=== PATIENT | male | born 1950 | race Caucasian/White ===

== ENCOUNTER → 2018-07-27 | Outpatient (CLI) | payer MEDICARE ==
[~2018-07-27] MED LIST: AEC81 PO; CELE200 PO; CYCL10TA7 PO; HYDR-4068 PO; LISI-613 PO; PRED5TAB44 PO; REGADENOSON 0.4 MG/5 ML PF SYG IVP SCH; [UNRECOGNIZED DRUG - CODE] PO
== END | disposition home or self-care (01) ==
LOC: SHCH 08:46
PROVIDERS: ATTEND Internal Medicine Cardiovascular Disease
DX: I25.10 Atherosclerotic heart disease of native coronary artery without angina pectoris (principal); I10 Essential (primary) hypertension
CPT/HCPCS: 78452; 93017; 96374; A9500 ×2; J2785

== ENCOUNTER → 2018-07-31 | Outpatient (CLI) | payer MEDICARE ==
[~2018-07-31] MED LIST changes: -REGADENOSON 0.4 MG/5 ML PF SYG IVP SCH
== END | disposition home or self-care (01) ==
LOC: SHCH 10:25
PROVIDERS: ATTEND Internal Medicine Cardiovascular Disease
DX: I25.10 Atherosclerotic heart disease of native coronary artery without angina pectoris (principal); I10 Essential (primary) hypertension
CPT/HCPCS: 93306

== ENCOUNTER → 2018-08-15 | Outpatient (CLI) | payer MEDICARE | END | disposition home or self-care (01) | LOC: SHCH 10:48 | PROVIDERS: ATTEND Internal Medicine Cardiovascular Disease | DX: I73.9 Peripheral vascular disease, unspecified (principal) | CPT/HCPCS: 93925 ==

== ENCOUNTER → 2018-08-27 | Outpatient (CLI) | payer MEDICARE ==
[~2018-08-27] MED LIST changes: +IOHEXOL-350 75 ML VIAL IV ONE
== END | disposition home or self-care (01) ==
LOC: RAH 07:48
PROVIDERS: ATTEND Internal Medicine Cardiovascular Disease
DX: I65.23 Occlusion and stenosis of bilateral carotid arteries (principal); I73.9 Peripheral vascular disease, unspecified; I70.90 Unspecified atherosclerosis; Z72.89 Other problems related to lifestyle
CPT/HCPCS: 75635; Q9967

== ENCOUNTER 2018-10-03 10:24 | Observation (INO) | payer MEDICARE ==
[2018-10-01 11:55] VITALS: BP 144/84
[2018-10-01 12:16] LABS: BASOPHILS % (AUTO) 0.8 % (0.0-5.0); EOSINOPHILS % (AUTO) 0.4 % (0.0-8.0); HEMATOCRIT 42.5 % (42-54); LYMPHOCYTES % (AUTO) 10.1 % (21.0-51.0); MEAN CORPUSCULAR HEMOGLOBIN 33.4 pg (27.0-33.0); MEAN CORPUSCULAR HGB CONC 34.5 g/dL (32.0-36.0); MEAN CORPUSCULAR VOLUME 96.7 fL (79-99); MONOCYTES % (AUTO) 5.2 % (3.0-13.0); NEUTROPHILS % (AUTO) 83.5 % (40.0-77.0); PLATELET COUNT (AUTO) 342 K/uL (130-400); RED BLOOD CELL COUNT(AUTO) 4.39 MIL/uL (4.50-6.20); RED CELL DISTRIBUTION WIDTH 13.1 % (11.0-15.5)
[2018-10-01 12:29] LABS: INR 0.95 (0.85-1.15); PARTIAL THROMBOPLASTIN TIME 34.1 SEC (26.3-35.5)
[2018-10-01 12:31] LABS: APPEARANCE,URINE Clear (CLEAR); BILIRUBIN,URINE Negative (NEGATIVE); COLOR,URINE Yellow (YELLOW); GLUCOSE, URINE (UA) Negative (NEGATIVE); KETONES,URINE Negative (NEGATIVE); LEUKOCYTE ESTERASE ,URINE Negative (NEGATIVE); NITRATE,URINE Negative (NEGATIVE); OCCULT BLOOD,URINE Negative (NEGATIVE); PROTEIN,URINE Negative (NEGATIVE); UROBILINOGEN,URINE 0.2 mg/dL (0.2-1.0)
[2018-10-01 12:33] LABS: CREATININE 1.1 mg/dL (0.5-1.5); POTASSIUM 5.4 mmol/L (3.5-5.1)
[2018-10-03] VITALS (10 sets, daily range): BP systolic 133–168; BP diastolic 80–112
[~2018-10-03] VITALS: Ht 172.7 cm; Wt 75.6 kg
[~2018-10-03 10:24] MED LIST changes: -IOHEXOL-350 75 ML VIAL IV ONE; +TAMS0.4C32 PO
[2018-10-03 10:54] LABS: CREATININE 0.9 mg/dL (0.5-1.5); POTASSIUM 4.6 mmol/L (3.5-5.1)
[2018-10-03] MEDS ORDERED: SODIUM CHLORIDE 0.9% 1000ML 1,000 ML IV ONE (12:13)
[2018-10-03] MEDS ORDERED: NITROGLYCERIN 5 MG/ML 10 ML VIAL IV ONE (14:01)
[2018-10-03] MEDS ORDERED: HEPARIN SODIUM 1000UNIT/ML 10ML VIAL ONE (14:01)
[2018-10-03] MEDS ORDERED: IOHEXOL 350 MG/ML 100ML INFUS..BTL IV ONE (14:01)
[2018-10-03] MEDS ORDERED: SODIUM BICARB 50MEQ 50ML VIAL ONE (14:01)
[2018-10-03] MEDS ORDERED: IOHEXOL-350 50ML VIAL IV ONE (14:01)
[2018-10-03] MEDS ORDERED: LIDOCAINE HCL 2% 20ML ONE (14:02)
[2018-10-03] MEDS ORDERED: MEPERIDINE-PF 25 MG/ML SYG ONE ×2 (14:12→14:18)
[2018-10-03] MEDS ORDERED: MIDAZOLAM HCL 1 MG/ML 2ML VIAL ONE ×2 (14:12→14:18)
[2018-10-03] MEDS ORDERED: METO-408 PO (14:47)
[2018-10-03] MEDS ORDERED: ROSU5TAB11 PO (14:47)
[2018-10-03] MEDS ORDERED: ASPIRIN 81MG TAB.CHEW ONE (15:02)
[2018-10-03] MEDS ORDERED: CLOPIDOGREL BISULFATE 300 MG TAB ONE (15:02)
[2018-10-03] MEDS ORDERED: MORPHINE SULFATE 4 MG/1ML SYG ONE (15:04)
[2018-10-03] MEDS ORDERED: HYDRALAZINE HCL 20 MG/ML VIAL ONE (15:17)
[2018-10-03] MEDS ORDERED: MORPHINE SULFATE 4 MG/1ML SYG IV PRN (15:45)
[2018-10-03] MEDS ORDERED: ALPRAZOLAM 0.5 MG TABLET PO PRN (15:45)
[2018-10-03] MEDS ORDERED: HYDRALAZINE HCL 20 MG/ML VIAL IV PRN (15:45)
[2018-10-03] MEDS ORDERED: ONDANSETRON HCL 4 MG/2 ML VIAL IVP PRN (15:45)
[2018-10-03] MEDS ORDERED: CLOPIDOGREL BISULFATE 300 MG TAB PO SCH (15:45)
[2018-10-03] MEDS: HYDROCODONE/ACETAMINOPHEN 10/325 MG TAB PO PRN ×2 (16:44→20:40)
[2018-10-03] MEDS ORDERED: SODIUM CHLORIDE 0.9% 1000ML 1,000 ML IV SCH (18:15)
[2018-10-03] MEDS: CYCLOBENZAPRINE HCL 10 MG TABLET PO PRN (20:40)
[2018-10-03] MEDS ORDERED: ATORVASTATIN CALCIUM 10 MG TABLET PO SCH (21:00)
[2018-10-03] MEDS ORDERED: ***HM***(Metoprolol Succinate 12.5 MG) PO SCH (21:00)
[2018-10-04] MEDS: HYDROCODONE/ACETAMINOPHEN 10/325 MG TAB PO PRN (02:05)
[2018-10-04 03:47] LABS: HEMATOCRIT 38.6 % (42-54); MEAN CORPUSCULAR HEMOGLOBIN 33.1 pg (27.0-33.0); MEAN CORPUSCULAR HGB CONC 34.2 g/dL (32.0-36.0); NUCLEATED RED BLOOD CELLS 0.1 % (0.0-0.19); PLATELET COUNT (AUTO) 316 K/uL (130-400); RED BLOOD CELL COUNT(AUTO) 3.98 MIL/uL (4.50-6.20); RED CELL DISTRIBUTION WIDTH 12.8 % (11.0-15.5); WHITE BLOOD COUNT (AUTO) 4.6 K/uL (4.8-10.8)
[2018-10-04 03:52] VITALS: BP 155/92
[2018-10-04 04:03] LABS: CREATININE 0.9 mg/dL (0.5-1.5)
[2018-10-04 07:38] VITALS: BP_SYST 109; BP_SYST 169; BP_DIAS 115
[2018-10-04] MEDS ORDERED: CLOPIDOGREL BISULFATE 75 MG TAB PO SCH (09:00)
[2018-10-04] MEDS ORDERED: PREDNISONE 5 MG TABLET PO SCH (09:00)
[2018-10-04] MEDS ORDERED: TAMSULOSIN HCL 0.4 MG CAP.ER.24H PO SCH (09:00)
[2018-10-04] MEDS ORDERED: ASPIRIN 81 MG EC TAB PO SCH (09:00)
[2018-10-04] MEDS ORDERED: CELECOXIB 200 MG CAP PO SCH (09:00)
[2018-10-04] MEDS ORDERED: PROPRANOLOL HCL 120 MG PO SCH (09:00)
[2018-10-04] MEDS ORDERED: LISINOPRIL 20 MG TABLET PO SCH (09:00)
[2018-10-04 10:32] VITALS: BP 131/87
[2018-10-04] MEDS: CYCLOBENZAPRINE HCL 10 MG TABLET PO PRN (11:36)
== END 2018-10-04 14:30 | disposition home or self-care (01) ==
LOC: DAH 10:24 → DAHIP 10:25 → DAH 10:25 → 2DH 16:42
PROVIDERS: ADMIT Internal Medicine; ATTEND Internal Medicine
DX: I25.10 Atherosclerotic heart disease of native coronary artery without angina pectoris (principal); I73.9 Peripheral vascular disease, unspecified; I10 Essential (primary) hypertension; N40.0 Benign prostatic hyperplasia without lower urinary tract symptoms; M51.37 Other intervertebral disc degeneration, lumbosacral region; M54.12 Radiculopathy, cervical region; Z79.899 Other long term (current) drug therapy; Z82.49 Family history of ischemic heart disease and other diseases of the circulatory system; F10.20 Alcohol dependence, uncomplicated; Z79.01 Long term (current) use of anticoagulants
CPT/HCPCS: 36415 ×3; 71045 ×2; 80048 ×3; 80061; 81003; 83880; 85025; 85027; 85347; 85610; 85730; 92928; 93005 ×4; 93458; 96374; A4606; C1760; C1769; C1876; C1887; C1893; C1894; G0378 ×28; J0360 ×2; J1644 ×2; J2175; J2250; J2270; J3490 ×3; J7030 ×2; J7512; Q9965; Q9967 ×2; 99156; 99157

== ENCOUNTER → 2019-02-07 | Outpatient (CLI) | payer MEDICARE ==
[~2019-02-07] MED LIST changes: +CLOP75TA14 PO; +METO-408 PO; +ROSU5TAB11 PO; -[UNRECOGNIZED DRUG - CODE] PO
== END | disposition home or self-care (01) ==
LOC: SHCH 10:26
PROVIDERS: ATTEND Internal Medicine Cardiovascular Disease
DX: I73.9 Peripheral vascular disease, unspecified (principal)
CPT/HCPCS: 93925

== ENCOUNTER → 2019-03-06 | Outpatient (CLI) | payer MEDICARE ==
[~2019-03-06] MED LIST changes: +IOHEXOL 350 MG/ML 100ML INFUS..BTL IV ONE; +IOHEXOL-350 50ML VIAL IV ONE
== END | disposition home or self-care (01) ==
LOC: RAH 07:46
PROVIDERS: ATTEND Internal Medicine Cardiovascular Disease
DX: I70.0 Atherosclerosis of aorta (principal); I70.201 Unspecified atherosclerosis of native arteries of extremities, right leg; I73.9 Peripheral vascular disease, unspecified; M51.36 Other intervertebral disc degeneration, lumbar region; M47.816 Spondylosis without myelopathy or radiculopathy, lumbar region; K57.90 Diverticulosis of intestine, part unspecified, without perforation or abscess without bleeding
CPT/HCPCS: 75635; Q9967 ×2

== ENCOUNTER 2019-05-14 06:02 | Day surgery (SDC) | payer MEDICARE ==
[2019-05-10 12:48] VITALS: BP 126/69
[2019-05-10 12:54] LABS: BASOPHILS % (AUTO) 0.4 % (0.0-5.0); EOSINOPHILS % (AUTO) 0.1 % (0.0-8.0); HEMATOCRIT 30.3 % (42-54); LYMPHOCYTES % (AUTO) 5.8 % (21.0-51.0); MEAN CORPUSCULAR HGB CONC 34.5 g/dL (32.0-36.0); MEAN CORPUSCULAR VOLUME 95.7 fL (79-99); MONOCYTES % (AUTO) 3.3 % (3.0-13.0); NEUTROPHILS % (AUTO) 90.4 % (40.0-77.0); PLATELET COUNT (AUTO) 383 K/uL (130-400); RED BLOOD CELL COUNT(AUTO) 3.17 MIL/uL (4.50-6.20); RED CELL DISTRIBUTION WIDTH 13.8 % (11.0-15.5); WHITE BLOOD COUNT (AUTO) 7.1 K/uL (4.8-10.8)
[2019-05-10 12:58] LABS: APPEARANCE,URINE CLEAR (CLEAR); BILIRUBIN,URINE NEGATIVE (NEGATIVE); COLOR,URINE YELLOW (YELLOW); GLUCOSE, URINE (UA) NEGATIVE (NEGATIVE); KETONES,URINE NEGATIVE (NEGATIVE); LEUKOCYTE ESTERASE ,URINE NEGATIVE (NEGATIVE); NITRATE,URINE NEGATIVE (NEGATIVE); OCCULT BLOOD,URINE NEGATIVE (NEGATIVE); PH,URINE 5.5 (5.0-8.0); PROTEIN,URINE NEGATIVE (NEGATIVE); UROBILINOGEN,URINE 0.2 mg/dL (0.2-1.0)
[2019-05-10 13:01] LABS: CREATININE 1.1 mg/dL (0.5-1.5); POTASSIUM 4.8 mmol/L (3.5-5.1)
[2019-05-10 13:05] LABS: INR 0.95 (0.85-1.15); PARTIAL THROMBOPLASTIN TIME 31.6 SEC (26.3-35.5)
--- NOTE | 2019-05-13 10:14 | NUR ---
ABNORMAL LABS H/H 10.5/30.3, NA 125 AND CHEST X RAY RESULT REPORTED TO VENICE KIM. NO FURTHER ORDERS GIVEN, MAY PROCEED WITH PLANNED PROCEDURE.
[~2019-05-14] VITALS: Ht 174 cm; Wt 74.6 kg
[2019-05-14] VITALS (11 sets, daily range): BP systolic 125–180; BP diastolic 74–96
[~2019-05-14 06:02] MED LIST changes: +CILO100T PO; -CYCL10TA7 PO; -IOHEXOL 350 MG/ML 100ML INFUS..BTL IV ONE; -IOHEXOL-350 50ML VIAL IV ONE; -METO-408 PO; -ROSU5TAB11 PO; +ROSU5TAB12 PO
[2019-05-14] MEDS ORDERED: SODIUM CHLORIDE 0.9% 1000ML 1,000 ML IV ONE (06:11)
[2019-05-14] MEDS ORDERED: SODIUM CHLORIDE 0.9% 1000ML 1,000 ML IV SCH ×2 (08:00→09:16)
[2019-05-14] MEDS ORDERED: SODIUM BICARB 50MEQ 50ML VIAL ONE (08:04)
[2019-05-14] MEDS ORDERED: IOHEXOL 350 MG/ML 100ML INFUS..BTL IV ONE (08:04)
[2019-05-14] MEDS ORDERED: LIDOCAINE HCL 2% 20ML ONE (08:04)
[2019-05-14] MEDS ORDERED: HEPARIN SODIUM 1000UNIT/ML 10ML VIAL ONE (08:04)
[2019-05-14] MEDS ORDERED: NITROGLYCERIN 5 MG/ML 10 ML VIAL IV ONE (08:04)
[2019-05-14] MEDS ORDERED: IOHEXOL-350 75 ML VIAL IV ONE (08:06)
[2019-05-14] MEDS ORDERED: MEPERIDINE-PF 25 MG/ML SYG ONE ×3 (08:18→08:53)
[2019-05-14] MEDS ORDERED: MIDAZOLAM HCL 1 MG/ML 2ML VIAL ONE ×3 (08:18→08:53)
[2019-05-14] MEDS ORDERED: FENTANYL CITRATE PF 50 MCG/1 ML 2ML VIAL IVP SCH (10:00)
[2019-05-14] MEDS ORDERED: MIDAZOLAM HCL 1 MG/ML 2ML VIAL IVP SCH (10:00)
== END 2019-05-14 14:09 | disposition home or self-care (01) ==
LOC: DAH 06:02
PROVIDERS: ATTEND Internal Medicine Cardiovascular Disease
DX: I70.213 Atherosclerosis of native arteries of extremities with intermittent claudication, bilateral legs (principal); I25.10 Atherosclerotic heart disease of native coronary artery without angina pectoris; I10 Essential (primary) hypertension; Z98.890 Other specified postprocedural states; F17.210 Nicotine dependence, cigarettes, uncomplicated; Z79.01 Long term (current) use of anticoagulants; Z79.82 Long term (current) use of aspirin; Z79.899 Other long term (current) drug therapy; Z72.89 Other problems related to lifestyle; Z82.3 Family history of stroke; Z82.49 Family history of ischemic heart disease and other diseases of the circulatory system
CPT/HCPCS: 36245; 36415; 71045; 75716; 80048; 81003; 85025; 85610; 85730; 93005; A4606; C1760; C1769; C1894; J1644; J2175 ×3; J2250 ×4; J3010; J3490 ×3; J7030; Q9967; 36247; 75710; 99156; 99157

== ENCOUNTER 2019-07-03 11:21 | Inpatient (IN) | payer MEDICARE | END 2019-07-05 13:50 | disposition home or self-care (01) | LOC: DAHIP 11:21 → 2DH 07-04 13:51 → 2CV 22:20 | PROC: 041K09M Bypass Right Femoral Artery to Peroneal Artery with Autologous Venous Tissue, Open Approach (ICD-10-PCS; principal; 2019-07-03 19:18) | PROC: 06BQ0ZZ Excision of Left Saphenous Vein, Open Approach (ICD-10-PCS; 2019-07-03 19:18) | DX: I73.9 Peripheral vascular disease, unspecified (principal) ==

== ENCOUNTER 2020-01-13 12:46 | Emergency (ER) | payer MEDICARE ==
[~2020-01-13 12:46] MED LIST changes: +PRED5TAB PO; -PRED5TAB44 PO
[2020-01-13] MEDS ORDERED: ONDANSETRON HCL 4 MG/2 ML VIAL ONE (13:16)
[2020-01-13] MEDS ORDERED: KETOROLAC TROMETHAMINE 15MG/ML ONE (13:16)
[2020-01-13] MEDS ORDERED: FENTANYL CITRATE PF 50 MCG/1 ML 2ML VIAL ONE (13:17)
== END 2020-01-13 15:58 | disposition home or self-care (01) ==
LOC: EDH 12:46
DX: M54.5 Low back pain (principal); M54.10 Radiculopathy, site unspecified; I10 Essential (primary) hypertension; Z72.0 Tobacco use
CPT/HCPCS: 74176; 96374; 96375; 99284; J1885; J2405; J3010

== ENCOUNTER → 2020-04-16 | Outpatient (CLI) | payer MEDICARE ==
[2020-04-16 11:21] LABS: BASOPHILS % (AUTO) 0.8 % (0.0-5.0); EOSINOPHILS % (AUTO) 2.2 % (0.0-8.0); HEMATOCRIT 26.8 % (42-54); LYMPHOCYTES % (AUTO) 19.9 % (21.0-51.0); MEAN CORPUSCULAR HEMOGLOBIN 20.1 pg (27.0-33.0); MEAN CORPUSCULAR HGB CONC 28.7 g/dL (32.0-36.0); MONOCYTES % (AUTO) 13.8 % (3.0-13.0); NEUTROPHILS % (AUTO) 62.9 % (40.0-77.0); PLATELET COUNT (AUTO) 450 K/uL (130-400); RED BLOOD CELL COUNT(AUTO) 3.83 MIL/uL (4.50-6.20); WHITE BLOOD COUNT (AUTO) 4.9 K/uL (4.8-10.8)
[2020-04-16 11:29] LABS: ALBUMIN 4.1 g/dL (3.5-5.0); BILIRUBIN,TOTAL 0.4 mg/dL (0.2-1.0); CREATININE 0.9 mg/dL (0.5-1.5); POTASSIUM 4.3 mmol/L (3.5-5.1); TOTAL PROTEIN, SERUM 7.7 g/dL (6.0-8.3)
[2020-04-16 11:36] LABS: HEMOGLOBIN A1C 5.4 % (4.0-6.0)
[2020-04-16 11:39] LABS: INR 0.92 (0.85-1.15); PARTIAL THROMBOPLASTIN TIME 28.8 SEC (26.3-35.5)
== END ==
LOC: LAB 05:00 → EDSTATUS 04-22 11:30
PROVIDERS: ATTEND Thoracic Surgery (Cardiothoracic Vascular Surgery)
DX: Z01.818 Encounter for other preprocedural examination (principal); I73.9 Peripheral vascular disease, unspecified; I10 Essential (primary) hypertension; I25.10 Atherosclerotic heart disease of native coronary artery without angina pectoris; Z79.82 Long term (current) use of aspirin; Z79.899 Other long term (current) drug therapy; Z98.890 Other specified postprocedural states; Z79.01 Long term (current) use of anticoagulants
CPT/HCPCS: 36415; 71046; 80053; 83036; 85025; 85610; 85730; 93005; U0003

== ENCOUNTER 2020-06-30 09:43 | Inpatient (IN) | payer MEDICARE ==
[2020-06-26 12:30] LABS: BASOPHILS % (AUTO) 0.2 % (0.0-5.0); EOSINOPHILS % (AUTO) 0.1 % (0.0-8.0); HEMATOCRIT 27.8 % (42-54); LYMPHOCYTES % (AUTO) 6.6 % (21.0-51.0); MEAN CORPUSCULAR HEMOGLOBIN 19.9 pg (27.0-33.0); MEAN CORPUSCULAR HGB CONC 28.8 g/dL (32.0-36.0); MEAN CORPUSCULAR VOLUME 69.2 fL (79-99); MONOCYTES % (AUTO) 6.2 % (3.0-13.0); NEUTROPHILS % (AUTO) 86.7 % (40.0-77.0); PLATELET COUNT (AUTO) 396 K/uL (130-400); RED BLOOD CELL COUNT(AUTO) 4.02 MIL/uL (4.50-6.20); RED CELL DISTRIBUTION WIDTH 20.9 % (11.0-15.5); WHITE BLOOD COUNT (AUTO) 8.3 K/uL (4.8-10.8)
[2020-06-26 12:56] LABS: INR 0.9 (0.85-1.15); PROTHROMBIN TIME 9.8 SEC (9.6-11.6)
[2020-06-26 13:02] LABS: HEMOGLOBIN A1C 5.5 % (4.0-6.0)
[2020-06-26 15:49] VITALS: BP 173/90
--- NOTE | 2020-06-29 16:21 | NUR ---
ABN LABS AND CXR OK PER SHERIE KNAPP( HGB/NA). PT TO HOLD CLOPIDOGREL AND ASPIRIN DAY OF SURGERY.
[~2020-06-30] VITALS: Ht 175.3 cm; Wt 68.5 kg
[2020-06-30] VITALS (21 sets, daily range): BP systolic 103–177; BP diastolic 69–99
[~2020-06-30 09:43] MED LIST changes: +CEFUROXIME SODIUM 1.5 GM VIAL IVP SCH; -TAMS0.4C32 PO
[2020-06-30] MEDS ORDERED: LACTATED RINGERS 1000ML 1,000 ML IV ONE (11:08)
[2020-06-30] MEDS ORDERED: PROPOFOL 10 MG/ML 20ML VIAL IV ONE (13:07)
[2020-06-30] MEDS ORDERED: PHENYLEPHRINE HCL 10 MG/ML 1ML VIAL IV ONE (13:07)
[2020-06-30] MEDS ORDERED: LIDOCAINE PF 2% 5ML ABBOJECT ONE (13:07)
[2020-06-30] MEDS ORDERED: SUCCINYLCHOLINE CHLORIDE 20 MG/ML 10 ML VIAL ONE ×2 (13:07→13:11)
[2020-06-30] MEDS ORDERED: FENTANYL CITRATE PF 50 MCG/1 ML 2ML VIAL ONE ×2 (13:07→16:26)
[2020-06-30] MEDS ORDERED: ROCURONIUM 10MG/1ML SYR 10 MG/ML ML ONE (13:07)
[2020-06-30] MEDS ORDERED: LIDOCAINE HCL-MPF 1% 5ML AMP IJ ONE (13:17)
[2020-06-30] MEDS ORDERED: MIDAZOLAM HCL 1 MG/ML 2ML VIAL ONE (13:17)
[2020-06-30] MEDS ORDERED: IPRATROPIUM/ALBUTEROL SULFATE 3 ML SOLUTION IH ONE (14:06)
[2020-06-30] MEDS ORDERED: IPRATROPIUM/ALBUTEROL SULFATE 3 ML SOLUTION IH SCH (14:15)
[2020-06-30 14:19] LABS: ABG BASE EXCESS 0.9 mmol/L (-2.0-3.0); ABG HCO3 24.5 mmol/L (21.0-28.0); ABG OXYGEN SATURATION 92.9 % (95.0-99.0); ABG PCO2 35 mmHg (35-48)
[2020-06-30] MEDS ORDERED: CEFAZOLIN SODIUM 1 GM VIAL ONE (14:27)
[2020-06-30] MEDS ORDERED: PAPAVERINE HCL 30 MG/ML 2ML VIAL ONE (14:28)
[2020-06-30] MEDS ORDERED: METHYLPREDNISOLONE SOD SUCC 125MG/2ML VIAL ONE (15:43)
[2020-06-30] MEDS ORDERED: GLYCOPYRROLATE 1 MG/5 ML SYRINGE ONE (16:13)
[2020-06-30] MEDS ORDERED: NEOSTIGMINE 5MG/5ML SYR IV ONE (16:13)
[2020-06-30] MEDS ORDERED: ACETAMINOPHEN 325 MG TAB PO PRN (16:15)
[2020-06-30] MEDS ORDERED: TRAMADOL HCL 50 MG TABLET PO PRN ×2 (16:15)
[2020-06-30] MEDS ORDERED: MAGNESIUM HYDROXIDE 30 ML/UDCUP PO PRN (16:15)
[2020-06-30] MEDS ORDERED: HYDRALAZINE HCL 20 MG/ML VIAL IV PRN (16:15)
[2020-06-30] MEDS ORDERED: ESMOLOL HCL 10 MG/ML 10 ML VIAL ONE (16:20)
[2020-06-30] MEDS ORDERED: KETOROLAC TROMETHAMINE 30MG/ML IV PRN (18:00)
[2020-06-30] MEDS: DOCUSATE SODIUM 100 MG CAP PO SCH (21:32)
[2020-06-30] MEDS: CEFAZOLIN SODIUM 1 GM VIAL IVP SCH (21:32)
[2020-06-30] MEDS: CILOSTAZOL 100 MG TAB PO SCH (21:32)
[2020-07-01 04:00] VITALS: BP 136/79
[2020-07-01 04:43] LABS: HEMATOCRIT 26.4 % (42-54); MEAN CORPUSCULAR HEMOGLOBIN 20.9 pg (27.0-33.0); MEAN CORPUSCULAR HGB CONC 29.5 g/dL (32.0-36.0); MEAN CORPUSCULAR VOLUME 70.8 fL (79-99); RED BLOOD CELL COUNT(AUTO) 3.73 MIL/uL (4.50-6.20); RED CELL DISTRIBUTION WIDTH 21.4 % (11.0-15.5); WHITE BLOOD COUNT (AUTO) 7.2 K/uL (4.8-10.8)
[2020-07-01 04:53] LABS: CREATININE 0.8 mg/dL (0.5-1.5); POTASSIUM 3.9 mmol/L (3.5-5.1)
[2020-07-01] MEDS: CEFAZOLIN SODIUM 1 GM VIAL IVP SCH (05:39)
[2020-07-01 07:00] VITALS: BP 140/82
--- NOTE | 2020-07-01 07:30 | NUR ---
Dr Escalera updated with patient's status, including morning lab results, new orders given to transfuse 1 unit of PRBC's
[2020-07-01 08:00] VITALS: BP 136/81
[2020-07-01] MEDS: DOCUSATE SODIUM 100 MG CAP PO SCH (08:12)
--- NOTE | 2020-07-01 08:15 | NUR ---
Report given to Robe Lofton RN, transferred to room 420 via bed.
[2020-07-01] MEDS: CILOSTAZOL 100 MG TAB PO SCH (08:17)
--- NOTE | 2020-07-01 08:20 | NUR ---
ARRIVAL TO FLOOR PT IS AAOX3 DENIES CP DENIES SOB DENIES NV. NO COMPLAINTS,. LEFT LEG ELEVATED ON PILLOWS, LEFT LEG DRESSING CLEAN DRY AND INTACT. TELE PACK ON PATIENT. CALL LIGHT WITHIN REACH.
[2020-07-01] MEDS ORDERED: LISINOPRIL 20 MG TABLET PO SCH (09:00)
[2020-07-01] MEDS ORDERED: ASPIRIN 81 MG EC TAB PO SCH (09:00)
[2020-07-01] MEDS ORDERED: CELECOXIB 200 MG CAP PO SCH (09:00)
[2020-07-01] MEDS ORDERED: CLOPIDOGREL BISULFATE 75 MG TAB PO SCH (09:00)
[2020-07-01] MEDS ORDERED: ZOSYN 3.375GM+NS 50ML 50 ML IV SCH (09:00)
[2020-07-01] MEDS ORDERED: Rosuvastatin Calcium 5 MG PO SCH (09:00)
[2020-07-01 11:24] VITALS: BP 141/52
--- NOTE | 2020-07-01 14:15 | NUR ---
DC TO HOME ALL QUESTIONS ANSWERED, PIV REMOVED CATH TIP INTACT TELE PACK REMOVED. AGREES TO FOLLOW UP WITH DR TRUONG OUTPT. BELONGINGS RETURNED BY SECURITY, DOWN VIA WC TO VEHICLE WITH NURSE AIDE.
[2020-07-02] MEDS ORDERED: PREDNISONE 5 MG TABLET PO SCH (09:00)
--- NOTE | 2020-07-02 09:23 | NUR ---
CM NOTE- MED RECORD REVIEWED, NO TRIGGERS TO CM, NO CONCERNS VOICED, DETAILED CM ASSESSMENT DEFERED AT THIS TIME Addendum: 07/02/20 at 09 by JENS LINDSYA RN CM Amended: Links added.
== END 2020-07-01 14:45 | disposition home or self-care (01) | DRG 254 ==
LOC: DAHIP 09:43 → PAH.CVR 22:53 → 4CH 07-01 09:21
PROVIDERS: ADMIT Thoracic Surgery (Cardiothoracic Vascular Surgery); ATTEND Thoracic Surgery (Cardiothoracic Vascular Surgery)
PROC: 30233N1 Transfusion of Nonautologous Red Blood Cells into Peripheral Vein, Percutaneous Approach (ICD-10-PCS; 2020-06-30)
PROC: 041L0KL Bypass Left Femoral Artery to Popliteal Artery with Nonautologous Tissue Substitute, Open Approach (ICD-10-PCS; principal; 2020-06-30 14:35)
DX: I73.9 Peripheral vascular disease, unspecified (principal); E78.1 Pure hyperglyceridemia; Z20.828 Contact with and (suspected) exposure to other viral communicable diseases; I10 Essential (primary) hypertension; I25.10 Atherosclerotic heart disease of native coronary artery without angina pectoris; N40.0 Benign prostatic hyperplasia without lower urinary tract symptoms; J44.9 Chronic obstructive pulmonary disease, unspecified; M51.37 Other intervertebral disc degeneration, lumbosacral region; Z95.5 Presence of coronary angioplasty implant and graft
CPT/HCPCS: 36415; 36600; 71046; 80048; 82435; 82803; 82947; 83036; 83605; 84132; 84295; 85018; 85025; 85027; 85610; 85730; 86850; 86900; 86901; 86923; 93005; 94640; 97039; G0378; J0330; J0360; J0690; J0697; J1644; J2001; J2250; J2370; J2440; J2543; J2704; J2710; J2930; J3010; J3490; J7030; J7120; P9016; U0003

== ENCOUNTER 2020-07-23 14:01 | Inpatient (IN) | payer MEDICARE ==
[~2020-07-23] VITALS: Ht 175.3 cm; Wt 70.3 kg
[~2020-07-23 14:01] MED LIST changes: -CEFUROXIME SODIUM 1.5 GM VIAL IVP SCH
[2020-07-23] MEDS ORDERED: ONDANSETRON HCL 4 MG/2 ML VIAL ONE (14:35)
[2020-07-23] MEDS ORDERED: MORPHINE SULFATE 4 MG/1ML SYG ONE (14:36)
[2020-07-23 14:48] LABS: BASOPHILS % (AUTO) 0.5 % (0.0-5.0); EOSINOPHILS % (AUTO) 0.1 % (0.0-8.0); HEMATOCRIT 31.6 % (42-54); LYMPHOCYTES % (AUTO) 5.1 % (21.0-51.0); MEAN CORPUSCULAR HEMOGLOBIN 21.4 pg (27.0-33.0); MEAN CORPUSCULAR HGB CONC 30.4 g/dL (32.0-36.0); MEAN CORPUSCULAR VOLUME 70.5 fL (79-99); MONOCYTES % (AUTO) 4.8 % (3.0-13.0); NEUTROPHILS % (AUTO) 89.1 % (40.0-77.0); PLATELET COUNT (AUTO) 416 K/uL (130-400); RED BLOOD CELL COUNT(AUTO) 4.48 MIL/uL (4.50-6.20); RED CELL DISTRIBUTION WIDTH 22.3 % (11.0-15.5); WHITE BLOOD COUNT (AUTO) 7.5 K/uL (4.8-10.8)
[2020-07-23 15:01] LABS: INR 0.91 (0.85-1.15); PARTIAL THROMBOPLASTIN TIME 29.6 SEC (26.3-35.5); PROTHROMBIN TIME 9.9 SEC (9.6-11.6)
[2020-07-23 15:03] LABS: CREATININE 1.1 mg/dL (0.5-1.5); POTASSIUM 3.2 mmol/L (3.5-5.1)
[2020-07-23 15:14] LABS: ALBUMIN 3.4 g/dL (3.5-5.0); BILIRUBIN,DIRECT 0.1 mg/dL (0.0-0.3); BILIRUBIN,TOTAL 0.4 mg/dL (0.2-1.0); TOTAL PROTEIN, SERUM 7.1 g/dL (6.0-8.3)
[2020-07-23] MEDS ORDERED: CEFTRIAXONE SODIUM 2 GM VIAL ONE (15:27)
[2020-07-23] MEDS ORDERED: SODIUM CHLORIDE 0.9% 100 ML IV ONE (15:28)
[2020-07-23] MEDS ORDERED: ONDANSETRON HCL 4 MG/2 ML VIAL IV PRN (18:30)
[2020-07-23] MEDS: SODIUM CHLORIDE 0.9% 1000ML 1,000 ML IV SCH (18:30)
[2020-07-23] MEDS ORDERED: ZOLPIDEM TARTRATE 5 MG TAB PO PRN (18:30)
[2020-07-23] MEDS ORDERED: ACETAMINOPHEN 325 MG TAB PO PRN (18:30)
[2020-07-23] MEDS ORDERED: LACTULOSE 20 GM/30 ML UDCUP PO PRN (18:30)
[2020-07-23] MEDS ORDERED: FAMOTIDINE/PF 20 MG/2 ML VIAL IV ONE (19:51)
[2020-07-23] MEDS: FAMOTIDINE/PF 20 MG/2 ML VIAL IV SCH (21:00)
[2020-07-23] MEDS: CEFTRIAXONE SODIUM 1 GM IV SCH (21:00)
[2020-07-23] MEDS: CILOSTAZOL 100 MG TAB PO SCH (21:00)
[2020-07-24] VITALS: BP 138/70
[2020-07-24] MEDS ORDERED: POTASSIUM CHLORIDE 20MEQ/100ML 100 ML IV PRN ×2 (00:15→00:45)
[2020-07-24] MEDS ORDERED: POTASSIUM CHLORIDE 10% ELIXIR 20 MEQ/15 ML UDCUP PO PRN (00:15)
[2020-07-24] MEDS ORDERED: LIDOCAINE HCL-MPF 1% 2ML VIAL IV PRN (00:15)
--- NOTE | 2020-07-24 00:15 | NUR ---
ADMIT PT ADMITTED TO ROOM 312, AAOX3. DENIES ANY PAINS AT THIS TIME. ADMISSION CARE DONE. IVF OS NS FROM ER REGULATED AT 100CC/HR ORDERED. ADMISSION DATA BASE COMPLETED. WOUND DRESSING DONE TO LEFT GROIN AREA. CLEANSED WITH SALINE, PAT DRY THEN COVERED WITH GAUZE AND SECURED WITH TAPE. ORIENTED TO ROOM AND UNIT. CALL LIGHT WITHIN REACH. WILL MONITOR PT. Addendum: 07/24/20 at 0147 by LEWIS MOSER RN RN Amended: Links added.
[2020-07-24] MEDS ORDERED: NAPR220C15 PO (00:51)
[2020-07-24] MEDS: MAGNESIUM 2GM PREMIX 50ML 50 ML IV SCH ×2 (00:57→02:52)
--- NOTE | 2020-07-24 01:00 | NUR ---
MEDS STARTED PT ON POTASSIUM PROTOCOL PO AND MAGNESIUM IV HUNG. ENCOURAGED PT TO REST AND SLEEP. CALL LIGHT WITHIN REACH. WILL MONITOR PT.
[2020-07-24] MEDS: POTASSIUM CHLORIDE 20 MEQ ERTAB PO PRN ×2 (02:52→05:00)
[2020-07-24] MEDS: SODIUM CHLORIDE 0.9% 1000ML 1,000 ML IV SCH ×3 (03:35→17:52)
[2020-07-24 04:00] VITALS: BP 133/73
--- NOTE | 2020-07-24 05:00 | NUR ---
MEDS AWAKENED PT FOR LAST DOSE OF POTASSIUM PO PER [facility] PROTOCOL. MAGNESIUM COVERAGE IV DONE. NEW IV BAG HUNG. KEPT COMFORTABLE IN BED. WILL FOLLOW UP ON REPEAT ELECTROLYTES RESULTS THIS AM.
[2020-07-24 05:47] LABS: BASOPHILS % (AUTO) 0.8 % (0.0-5.0); EOSINOPHILS % (AUTO) 3.1 % (0.0-8.0); HEMATOCRIT 25.6 % (42-54); MEAN CORPUSCULAR HEMOGLOBIN 21.2 pg (27.0-33.0); MEAN CORPUSCULAR HGB CONC 30.1 g/dL (32.0-36.0); MEAN CORPUSCULAR VOLUME 70.3 fL (79-99); NEUTROPHILS % (AUTO) 66.8 % (40.0-77.0); PLATELET COUNT (AUTO) 327 K/uL (130-400); RED BLOOD CELL COUNT(AUTO) 3.64 MIL/uL (4.50-6.20); RED CELL DISTRIBUTION WIDTH 21.9 % (11.0-15.5); WHITE BLOOD COUNT (AUTO) 3.9 K/uL (4.8-10.8)
[2020-07-24 06:19] LABS: ALBUMIN 2.6 g/dL (3.5-5.0); BILIRUBIN,TOTAL 0.3 mg/dL (0.2-1.0); MAGNESIUM 2.3 mg/dL (1.80-2.40); POTASSIUM 4.2 mmol/L (3.5-5.1); TOTAL PROTEIN, SERUM 5.8 g/dL (6.0-8.3)
[2020-07-24 08:00] VITALS: BP 137/90
[2020-07-24] MEDS: CILOSTAZOL 100 MG TAB PO SCH ×2 (09:00→21:08)
[2020-07-24] MEDS ORDERED: FLU VACC QS2020-21(6MOS UP)/PF 60 MCG/0.5 ML ML IM ONE (09:00)
[2020-07-24] MEDS ORDERED: PNEUMOCOCCAL VACCINE POLYVALENT 0.5 ML/VIAL [PPV] IM SCH (09:00)
[2020-07-24] MEDS: CEFTRIAXONE SODIUM 1 GM IV SCH ×2 (09:46→20:56)
[2020-07-24] MEDS: FAMOTIDINE/PF 20 MG/2 ML VIAL IV SCH ×2 (09:46→20:56)
[2020-07-24] MEDS: LISINOPRIL 20 MG TABLET PO SCH (09:46)
[2020-07-24 12:00] VITALS: BP 137/91
[2020-07-24] MEDS ORDERED: VANCOMYCIN PROTOCOL PER PHARMACY IV SCH (12:30)
[2020-07-24] MEDS ORDERED: COMPOUND IV REFRIGERATED 1 EACH IVSOLN MISC PRN (13:45)
[2020-07-24] MEDS ORDERED: VANCOMYCIN 1.5 GM in SODIUM CHLORIDE 0.9% 250 ML IV ONE (14:00)
--- NOTE | 2020-07-24 14:02 | NUR ---
DCP CM met with pt discussed dc plans. Pt is independent prior to admission, lives at home with spouse. Pt has a walker, denies any other equipments/services. Feels safe to go back home, spouse able to assist with transportation and needs as necessary. DC plan to home once stable. CM to continue to follow up. Addendum: 07/24/20 at 1404 by OLIVIA GARCIA LVN CM Amended: Links added.
--- NOTE | 2020-07-24 15:00 | NUR ---
RE: U/S GUIDED DRAINAGE CATHETER PLACEMENT TO LEFT GROIN SEROMA ULTRASOUND PERFORMED TO THE LEFT GROIN. DR. ALVAREZ NOTED PATIENT HAS COMPLEX ACCUMULATION OF FLUID TO THE LEFT GROIN WITH MULTIPLE SEPTATIONS NOTED. UNABLE TO PERFORM A DRAINAGE CATHETER TO THE SITE DUE TO THE COMPLEX FLUID ACCUMULATION AND THE MULTIPLE SEPTATIONS. EXPLAINED TO PATIENT. CALLED AND INFORMED PRIMARY NURSE, SHERIE SHAFFER OF INABILITY TO PLACE DRAINAGE CATHETER BUT DR. ALVAREZ WILL ATTEMPT TO PERFORM US GUIDED DRAINAGE OF LEFT GROIN SEROMA.
--- NOTE | 2020-07-24 15:35 | NUR ---
U/S GUIDED DRAINAGE OF LEFT GROIN SEROMA PROCEDURE PERFORMED BY DR. ALVAREZ. PUNCTURE SITE LEFT GROIN AND PATIENT TOLERATED PROCEDURE WELL. TOTAL REMOVED 25 MILLILITERS OF YELLOW CLEAR FLUID FROM MULTIPLE SITES OF THE LEFT GROIN. END OF PROCEDURE AT 1555.CATHETER REMOVED AND DRESSING APPLIED. NO BLEEDING NOTED. REPORT GIVEN TO SHERIE GARCIA AND PATIENT TRANSPORTED TO [facility] VIA W/C. PT STABLE, AAO X 3 WITH NO C/O PAIN.
[2020-07-24] MEDS ORDERED: VANCOMYCIN 1.5 GM in SODIUM CHLORIDE 0.9% 250 ML IV SCH (18:00)
[2020-07-24 18:05] LABS: APPEARANCE BODY FLUID CLOUDY (CLEAR); COLOR,BODY FLUID DARK YELLOW (LT YELLOW); SPECIMENTYPE,BODY FLUID ASPIRATE; TOTAL VOLUME,BODY FLUID 23 mL
[2020-07-24 18:06] LABS: BODY FLUID RBC 4372 /cu. mm.; BODY FLUID WBC 1980 /cu. mm.
[2020-07-24 18:40] LABS: BF LYMPHOCYTE 93 %; BF MONOCYTE 3 %
[2020-07-24 19:20] VITALS: BP 129/74
--- NOTE | 2020-07-24 21:08 | NUR ---
PAGED MAURY PT REPORTS HIS UPPER LIP IS "TINGLING". INFLAMMATION NOTED ON UPPER LIP. NO C/O OF DIFFICULTY BREATHING. PAGED MAURY, NO ANTIHISTAMINE AVAILABLE TO GIVE PRN. SONYA VERNON RETURNED PAGE. ORDERS WERE GIVEN, PLACED IN [facility]. WILL CARRY OUT ORDERS AND CONT TO CLOSELY MONITOR PT.
[2020-07-24] MEDS ORDERED: METHYLPREDNISOLONE SOD SUCC 125MG/2ML VIAL ONE (21:14)
[2020-07-24] MEDS ORDERED: DIPHENHYDRAMINE HCL 25 MG CAPSULE ONE (21:15)
--- NOTE | 2020-07-24 21:30 | NUR ---
NOTE PT REPORTS IS LIPS FEEL BETTER. OBSERVED A DECREASE IN SWELLING OF THE LIPS. PT REPORTS THAT HE FEELS THE BANDAGE TO LEFT GROIN AREA "LEAKING". GAUZE PADS WERE SATURATED. CHANGED GAUZE, APPLIED GAUZE PADS, ABD DRESSING AND SECURED WITH MEDIPORE TAPE. ENCOURAGED PT USE CALL LIGHT BEFORE GETTING OUT OF BED OR FOR ANY ASSISTANCE- PT VERBALIZED AGREEMENT. CALL LIGHT WITHIN REACH ON BEDSIDE TABLE, BED ALARM ON, DOOR LEFT OPEN.
[2020-07-24] MEDS ORDERED: METHYLPREDNISOLONE SOD SUCC 125MG/2ML VIAL IVP ONE (22:20)
[2020-07-24] MEDS ORDERED: DIPHENHYDRAMINE HCL 25 MG CAPSULE PO ONE (22:20)
[2020-07-24] MEDS: ACETAMINOPHEN 325 MG TAB PO PRN (23:26)
--- NOTE | 2020-07-24 23:30 | NUR ---
NOTE PT CALLED TO INFORM ME THAT THERE WAS AN INCREASE IN DRAINAGE FROM GROIN AREA AGAIN. ABD PAD AND GAUZE PADS WERE SATURATED IN SEROUS FLUID. NO ODOR OBSERVED. CHANGED DRESSING: APPLIED GAZE PADS, ABD PAD, SECURED WITH MEDIPORE TAPE. CALL LIGHT WITHIN REACH ON BEDSIDE TABLE. BED ALARM ON, DOOR LEFT OPEN.
[2020-07-25] VITALS (8 sets, daily range): BP systolic 126–177; BP diastolic 78–97
[2020-07-25] MEDS: VANCOMYCIN 750MG + NS 250 ML IV SCH ×6 (06:00→22:03)
[2020-07-25] MEDS: SODIUM CHLORIDE 0.9% 1000ML 1,000 ML IV SCH ×2 (06:01→10:30)
[2020-07-25 06:33] LABS: HEMATOCRIT 26.1 % (42-54); LYMPHOCYTES % (AUTO) 7.1 % (21.0-51.0); MEAN CORPUSCULAR HEMOGLOBIN 21.1 pg (27.0-33.0); MEAN CORPUSCULAR HGB CONC 29.5 g/dL (32.0-36.0); MEAN CORPUSCULAR VOLUME 71.5 fL (79-99); MONOCYTES % (AUTO) 1.2 % (3.0-13.0); NEUTROPHILS % (AUTO) 90.9 % (40.0-77.0); PLATELET COUNT (AUTO) 315 K/uL (130-400); RED BLOOD CELL COUNT(AUTO) 3.65 MIL/uL (4.50-6.20); RED CELL DISTRIBUTION WIDTH 22.2 % (11.0-15.5); WHITE BLOOD COUNT (AUTO) 2.5 K/uL (4.8-10.8)
[2020-07-25 06:45] LABS: CREATININE 0.9 mg/dL (0.5-1.5); POTASSIUM 4.1 mmol/L (3.5-5.1)
[2020-07-25] MEDS ORDERED: HYDRALAZINE HCL 20 MG/ML VIAL IV PRN (08:15)
[2020-07-25 08:23] LABS: LYMPHOCYTES % (MANUAL) 4 % (22-44); MAN.DIFF COMMENT-IMPRESSION MANUAL DIFFERENTIAL; PLATELET MORPHOLOGY COMMENT ADEQUATE; SEGMENTED NEUTROPHILS % 96 % (40-70)
[2020-07-25] MEDS: ATORVASTATIN CALCIUM 10 MG TABLET PO SCH ×2 (09:00→22:01)
[2020-07-25] MEDS: CILOSTAZOL 100 MG TAB PO SCH ×2 (09:00→21:00)
[2020-07-25] MEDS: CEFTRIAXONE SODIUM 1 GM IV SCH ×2 (09:34→22:01)
[2020-07-25] MEDS: ASPIRIN 81 MG EC TAB PO SCH (09:34)
[2020-07-25] MEDS: FAMOTIDINE/PF 20 MG/2 ML VIAL IV SCH ×2 (09:34→22:01)
[2020-07-25] MEDS: LISINOPRIL 20 MG TABLET PO SCH (09:34)
[2020-07-25] MEDS: MORPHINE SULFATE 2 MG/ML 1ML SYG IV PRN (19:44)
[2020-07-26 04:07] VITALS: BP 160/98
[2020-07-26 07:04] LABS: BASOPHILS % (AUTO) 0.2 % (0.0-5.0); LYMPHOCYTES % (AUTO) 14.3 % (21.0-51.0); MEAN CORPUSCULAR HEMOGLOBIN 21.4 pg (27.0-33.0); MEAN CORPUSCULAR VOLUME 71.2 fL (79-99); MONOCYTES % (AUTO) 9.4 % (3.0-13.0); NEUTROPHILS % (AUTO) 75.7 % (40.0-77.0); PLATELET COUNT (AUTO) 334 K/uL (130-400); RED BLOOD CELL COUNT(AUTO) 3.51 MIL/uL (4.50-6.20); RED CELL DISTRIBUTION WIDTH 22.4 % (11.0-15.5); WHITE BLOOD COUNT (AUTO) 4.9 K/uL (4.8-10.8)
[2020-07-26] MEDS: VANCOMYCIN 750MG + NS 250 ML IV SCH ×6 (07:26→22:06)
[2020-07-26 07:52] LABS: CREATININE 0.9 mg/dL (0.5-1.5); POTASSIUM 3.8 mmol/L (3.5-5.1)
[2020-07-26 08:00] VITALS: BP 180/95
[2020-07-26] MEDS: ASPIRIN 81 MG EC TAB PO SCH (09:32)
[2020-07-26] MEDS: FAMOTIDINE 20MG TAB 20 MG TAB PO SCH ×2 (09:32→20:16)
[2020-07-26] MEDS: LISINOPRIL 20 MG TABLET PO SCH (09:32)
[2020-07-26] MEDS: CILOSTAZOL 100 MG TAB PO SCH ×2 (09:32→20:16)
[2020-07-26] MEDS: CEFTRIAXONE SODIUM 1 GM IV SCH ×2 (09:33→20:15)
[2020-07-26] MEDS: MORPHINE SULFATE 2 MG/ML 1ML SYG IV PRN ×2 (09:42→20:17)
[2020-07-26 12:00] VITALS: BP 122/41
[2020-07-26] MEDS: ACETAMINOPHEN 325 MG TAB PO PRN (14:41)
[2020-07-26 16:00] VITALS: BP 150/85
[2020-07-26] MEDS: ATORVASTATIN CALCIUM 10 MG TABLET PO SCH (20:16)
[2020-07-26 20:43] VITALS: BP 129/84
[2020-07-26 23:59] VITALS: BP 154/86
[2020-07-27 04:00] VITALS: BP 151/91
[2020-07-27 05:59] LABS: BASOPHILS % (AUTO) 0.3 % (0.0-5.0); EOSINOPHILS % (AUTO) 0.3 % (0.0-8.0); HEMATOCRIT 25.2 % (42-54); LYMPHOCYTES % (AUTO) 15.4 % (21.0-51.0); MEAN CORPUSCULAR HEMOGLOBIN 21.4 pg (27.0-33.0); MEAN CORPUSCULAR HGB CONC 29.8 g/dL (32.0-36.0); MEAN CORPUSCULAR VOLUME 71.8 fL (79-99); NEUTROPHILS % (AUTO) 70.7 % (40.0-77.0); PLATELET COUNT (AUTO) 314 K/uL (130-400); RED BLOOD CELL COUNT(AUTO) 3.51 MIL/uL (4.50-6.20); RED CELL DISTRIBUTION WIDTH 22.4 % (11.0-15.5); WHITE BLOOD COUNT (AUTO) 3.8 K/uL (4.8-10.8)
[2020-07-27] MEDS ORDERED: FLU VACC QS2020-21(6MOS UP)/PF 60 MCG/0.5 ML ML IM ONE (06:03)
[2020-07-27] MEDS: VANCOMYCIN 750MG + NS 250 ML IV SCH ×6 (06:05→22:39)
[2020-07-27 06:15] LABS: POTASSIUM 3.7 mmol/L (3.5-5.1)
[2020-07-27 07:49] VITALS: BP 162/96
[2020-07-27] MEDS: ASPIRIN 81 MG EC TAB PO SCH (10:29)
[2020-07-27] MEDS: LISINOPRIL 20 MG TABLET PO SCH (10:29)
[2020-07-27] MEDS: CILOSTAZOL 100 MG TAB PO SCH ×2 (10:29→20:46)
[2020-07-27] MEDS: FAMOTIDINE 20MG TAB 20 MG TAB PO SCH ×2 (10:29→20:46)
--- NOTE | 2020-07-27 11:00 | NUR ---
CM Note: [facility] pending approval CM met with pt, spouse uncomfortable for pt to go back home as woundvac still has large amount drain. Requesting possible SNF placement, RADHA signed for [facility]. Faxed order, clinicals, [facility], Covid transfer form, confirmation received. Spoke to Priscilla chavez dc once approved. Plan B home w/HH and [facility]. Primary nurse Leslee REHMAN aware left script for [facility] and HH for Dr Escalera to sign, informed nurse will need wound measurements entered on form, per nurse will look at [facility] documentations and will add measurements. CM to continue to follow up.
[2020-07-27 11:03] VITALS: BP 165/94
--- NOTE | 2020-07-27 12:08 | NUR ---
CM Note: POC CM spoke to Dr Escalera regarding SNF vs HH. As per Dr Escalera preferred pt to go home w/HH and [facility]. MD made aware pt and spouse requested short term placement as pt still has a large amount of drainage. Per Dr Escalera he does not think it would be better for pt to go to SNF, he feels pt will develop infection. Informed MD will inform pt and spouse. Informed Dr Escalera will need HH and [facility] script signed, flagged in chart, pending MD to sign. Per MD will sign scripts. Primary nurse Leslee REHMAN aware. CM to continue to follow up.
--- NOTE | 2020-07-27 13:30 | NUR ---
MEDICATED administered morphine 2 mg iv prior to wound vac removal and dressing change by wound therapy Dr Kennedy and staff
[2020-07-27] MEDS: MORPHINE SULFATE 2 MG/ML 1ML SYG IV PRN ×2 (14:54→21:00)
[2020-07-27] MEDS: CEFTRIAXONE SODIUM 1 GM IV SCH ×2 (15:07→20:46)
[2020-07-27] MEDS ORDERED: CEPH-578 PO (15:33)
[2020-07-27] MEDS ORDERED: DOXY100T2 PO (15:33)
[2020-07-27 16:22] VITALS: BP 142/87
[2020-07-27 20:09] VITALS: BP 122/72
[2020-07-27] MEDS: ATORVASTATIN CALCIUM 10 MG TABLET PO SCH (20:46)
[2020-07-28] VITALS (9 sets, daily range): BP systolic 90–168; BP diastolic 65–98
[2020-07-28 04:30] LABS: ALBUMIN 2.9 g/dL (3.5-5.0); BILIRUBIN,TOTAL 0.3 mg/dL (0.2-1.0); CREATININE 0.8 mg/dL (0.5-1.5); POTASSIUM 3.9 mmol/L (3.5-5.1); TOTAL PROTEIN, SERUM 6.2 g/dL (6.0-8.3)
[2020-07-28 04:32] LABS: HEMATOCRIT 26.6 % (42-54); LYMPHOCYTES % (AUTO) 17.5 % (21.0-51.0); MEAN CORPUSCULAR HEMOGLOBIN 21.4 pg (27.0-33.0); MEAN CORPUSCULAR HGB CONC 30.1 g/dL (32.0-36.0); MEAN CORPUSCULAR VOLUME 71.1 fL (79-99); MONOCYTES % (AUTO) 11.6 % (3.0-13.0); NEUTROPHILS % (AUTO) 66.7 % (40.0-77.0); PLATELET COUNT (AUTO) 356 K/uL (130-400); RED BLOOD CELL COUNT(AUTO) 3.74 MIL/uL (4.50-6.20); RED CELL DISTRIBUTION WIDTH 22.5 % (11.0-15.5); WHITE BLOOD COUNT (AUTO) 4.1 K/uL (4.8-10.8)
--- NOTE | 2020-07-28 10:00 | NUR ---
CM Note: [facility] pending approval and delivery, [facility] pending approval CM met with pt, had changed their mind regarding SNF placement, preferred to go home instead, RADHA signed for [facility]. Faxed clinicals to [facility], confirmation received. Pending script to be signed by Dr Escalera. Will send once MD signed script. Pending approval and delivery for [facility]. Faxed order and clinicals to [facility], confirmation received. Spoke to Desiree w/[facility] will await clinicals and check benefits. Aware pending [facility] approval and delivery. Pt pending approval for HH at this time. Primary nurse Lashawn RN aware of the above. Dr Escalera made aware pending signatures for [facility] and [facility], flagged in chart. CM to continue to follow up.
--- NOTE | 2020-07-28 10:00 | NUR ---
CM Note: Cancelled [facility] placement, pending approval for [facility] and [facility] CM met with pt informed of Dr Escalera recommendations, pt agreeable, [facility] signed for [facility] and [facility]. Faxed order and clinicals to [facility], confirmation received. Spoke to Desiree, made aware pending [facility] set up, pending MD to sign script for HH and [facility]. Pt pending approval. Primary nurse Lashawn RN aware. CM to continue to follow up.
[2020-07-28] MEDS: LISINOPRIL 20 MG TABLET PO SCH (10:18)
[2020-07-28] MEDS: CEFTRIAXONE SODIUM 1 GM IV SCH ×2 (10:18→20:50)
[2020-07-28] MEDS: FAMOTIDINE 20MG TAB 20 MG TAB PO SCH ×2 (10:18→20:50)
[2020-07-28] MEDS: ASPIRIN 81 MG EC TAB PO SCH (10:18)
[2020-07-28] MEDS: CILOSTAZOL 100 MG TAB PO SCH ×2 (10:18→20:50)
--- NOTE | 2020-07-28 12:03 | NUR ---
CM Note: [facility] script pending MD to sign CM informed Fidelina bar/Dr Escalera pending script to be signed by MD for [facility] via secured text. Primary nurse Lashawn REHMAN aware, also informed primary nurse Dr William Ashford w/[facility] ok to sign script, nurse to inform CM once either MD sign forms. CM to continue to follow up.
[2020-07-28] MEDS: MORPHINE SULFATE 2 MG/ML 1ML SYG IV PRN ×2 (15:31→20:50)
[2020-07-28] MEDS: ATORVASTATIN CALCIUM 10 MG TABLET PO SCH (20:50)
[2020-07-28] MEDS: VANCOMYCIN 1GM+NS 250ML 250 ML IV SCH (20:50)
[2020-07-29 03:45] VITALS: BP 97/74
[2020-07-29 06:16] LABS: BASOPHILS % (AUTO) 0.8 % (0.0-5.0); EOSINOPHILS % (AUTO) 5.4 % (0.0-8.0); HEMATOCRIT 24.4 % (42-54); LYMPHOCYTES % (AUTO) 15.1 % (21.0-51.0); MEAN CORPUSCULAR HEMOGLOBIN 21.4 pg (27.0-33.0); MEAN CORPUSCULAR HGB CONC 29.9 g/dL (32.0-36.0); MEAN CORPUSCULAR VOLUME 71.6 fL (79-99); MONOCYTES % (AUTO) 16.4 % (3.0-13.0); PLATELET COUNT (AUTO) 324 K/uL (130-400); RED BLOOD CELL COUNT(AUTO) 3.41 MIL/uL (4.50-6.20); RED CELL DISTRIBUTION WIDTH 22.4 % (11.0-15.5); WHITE BLOOD COUNT (AUTO) 3.7 K/uL (4.8-10.8)
[2020-07-29 06:26] LABS: CREATININE 0.8 mg/dL (0.5-1.5); POTASSIUM 3.6 mmol/L (3.5-5.1)
[2020-07-29 07:30] VITALS: BP 128/68
[2020-07-29] MEDS: CEFTRIAXONE SODIUM 1 GM IV SCH (09:53)
[2020-07-29] MEDS: VANCOMYCIN 1GM+NS 250ML 250 ML IV SCH (09:53)
[2020-07-29] MEDS: FAMOTIDINE 20MG TAB 20 MG TAB PO SCH (09:53)
[2020-07-29] MEDS: ASPIRIN 81 MG EC TAB PO SCH (09:54)
[2020-07-29] MEDS: LISINOPRIL 20 MG TABLET PO SCH (09:54)
[2020-07-29] MEDS: CILOSTAZOL 100 MG TAB PO SCH (09:54)
[2020-07-29 11:00] VITALS: BP 128/74
--- NOTE | 2020-07-29 12:01 | NUR ---
CM Note: [facility] approval CM spoke to Desiree bar/ROSIE PARRA, pt has approval. Aware pending I approval and delivery. Primary nurse Lashawn RN aware. CM to continue to follow up.
--- NOTE | 2020-07-29 12:02 | NUR ---
CM Note: [facility] pending MD to sign CM informed marybeth bar/Dr Escalera still pending script for [facility] for MD to sign. As per Marybeth will have form signed today. Primary nurse Lashawn REHMAN aware, to inform CM once MD signed forms paul. CM to continue to follow up.
--- NOTE | 2020-07-29 15:45 | NUR ---
REPORT GIVEN TO NIALL MCGEE, [facility]. NIALL VERBALIZED UNDERSTANDING. NIALL REPORTS PT WILL NOT BE SEEN UNTIL ALEX. NOTIFIED PT AND PT'S , YUMI, VERBALIZED UNDERSTANDING.
[2020-07-29 16:00] VITALS: BP 126/70
--- NOTE | 2020-07-29 16:00 | NUR ---
WOUND VAC CHANGED. EXPLAINED TO PATIENT OF CHANGING WOUND VAC PER MD ORDERS. EXPLAINED AWAITING FOR HOME WOUND VAC TO BE DELIVERED. PT VERBALIZED UNDERSTANDING. REMOVED WOUND VAC DRESSING AND LARGE AMT OF SEROUS FLUID ACTIVELY DRAINING. FLUID FILLED LEMON SIZE AREA ON LEFT GROIN AND WHILE PRESSING ON IT SEROUS FLUID CONTINUED TO DRAIN. NO REDNESS, SWELLING NOTED. APPLIED WOUND VAC WITH NO SEAL LEAK. REPORTED TO SONYA MCELROY, VERBALIZED UNDERSTANDING. SPOKE WITH ISAURA FROM [facility] AND SAID IT WAS SAME WHEN [facility] ASSESSED WOUND.
[2020-07-29 20:30] VITALS: BP 128/84
--- NOTE | 2020-07-29 21:15 | NUR ---
DISCHARGE NOTE: PT DISCHARGE TO HOME VIA WHEELCHAIR. PERSONAL WOUND VAC MACHINE AND MATERIALS ARRIVED. DISCHARGE INSTRUCTIONS GIVEN BY DAY SHIFT RN. PIV SITE TERMINATED WITH CATH INTACT. PICKED UP BY . NO APPARENT DISTRESS / DISCOMFORT NOTED.
== END 2020-07-29 21:15 | disposition home health service (06) | DRG 920 ==
LOC: EDH 14:01 → EDHIP 18:20 → 3BH 22:56
PROVIDERS: ADMIT Hospitalist; ATTEND Hospitalist
DX: L76.34 Postprocedural seroma of skin and subcutaneous tissue following other procedure (principal); T81.30XA Disruption of wound, unspecified, initial encounter; E87.1 Hypo-osmolality and hyponatremia; T82.7XXA Infection and inflammatory reaction due to other cardiac and vascular devices, implants and grafts, initial encounter; E87.6 Hypokalemia; I73.9 Peripheral vascular disease, unspecified; Z20.828 Contact with and (suspected) exposure to other viral communicable diseases; I10 Essential (primary) hypertension; F17.200 Nicotine dependence, unspecified, uncomplicated; M48.00 Spinal stenosis, site unspecified; E66.9 Obesity, unspecified; D64.9 Anemia, unspecified; I25.10 Atherosclerotic heart disease of native coronary artery without angina pectoris; E78.00 Pure hypercholesterolemia, unspecified; E87.70 Fluid overload, unspecified; I89.8 Other specified noninfective disorders of lymphatic vessels and lymph nodes; R53.81 Other malaise; Y83.8 Other surgical procedures as the cause of abnormal reaction of the patient, or of later complication, without mention of misadventure at the time of the procedure; Z68.22 Body mass index [BMI] 22.0-22.9, adult; Y92.89 Other specified places as the place of occurrence of the external cause; Z79.02 Long term (current) use of antithrombotics/antiplatelets; Z79.82 Long term (current) use of aspirin; Z79.899 Other long term (current) drug therapy; Z82.3 Family history of stroke; Z82.49 Family history of ischemic heart disease and other diseases of the circulatory system
CPT/HCPCS: 36415; 75989; 76942; 80048; 80053; 80061; 80076; 80202; 82550; 83605; 83735; 84484; 85025; 85610; 85730; 87040; 87070; 87071; 87076; 87205; 87426; 89051; 93005; 93971; G0378; J0696; J2270; J2405; J2930; J3370; J3475; J3490; J7030; J7050; Q0163; Q2035; U0003

== ENCOUNTER → 2020-08-07 | Outpatient (CLI) | payer MEDICARE ==
[~2020-08-07] MED LIST changes: +CEPH-578 PO; -CLOP75TA14 PO; +DOXY100T2 PO; +IOHEXOL 350 MG/ML 100ML INFUS..BTL IV ONE; +IOHEXOL-350 50ML VIAL IV ONE; +NAPR220C15 PO
== END | disposition home or self-care (01) ==
LOC: RAH 08:05
PROVIDERS: ATTEND Thoracic Surgery (Cardiothoracic Vascular Surgery)
DX: I73.9 Peripheral vascular disease, unspecified (principal); I25.10 Atherosclerotic heart disease of native coronary artery without angina pectoris; K57.30 Diverticulosis of large intestine without perforation or abscess without bleeding
CPT/HCPCS: 73706; Q9967 ×2

== ENCOUNTER 2020-11-01 19:48 | Inpatient (IN) | payer MEDICARE ==
[~2020-11-01] VITALS: Ht 175.3 cm; Wt 67.5 kg
[~2020-11-01 19:48] MED LIST changes: -IOHEXOL 350 MG/ML 100ML INFUS..BTL IV ONE; -IOHEXOL-350 50ML VIAL IV ONE; -LISI-613 PO; +LISI20TA24 PO
[2020-11-01 20:55] LABS: APPEARANCE,URINE Clear (CLEAR); BILIRUBIN,URINE Negative (NEGATIVE); COLOR,URINE Yellow (YELLOW); GLUCOSE, URINE (UA) Negative (NEGATIVE); KETONES,URINE Trace mg/dL (NEGATIVE); LEUKOCYTE ESTERASE ,URINE Negative (NEGATIVE); NITRATE,URINE Negative (NEGATIVE); OCCULT BLOOD,URINE Negative (NEGATIVE); PH,URINE 7.5 (5.0-8.0); PROTEIN,URINE Trace mg/dL (NEGATIVE); UROBILINOGEN,URINE 0.2 mg/dL (0.2-1.0)
[2020-11-01] MEDS ORDERED: HYDROCODONE/ACETAMINOPHEN 5/325 MG TAB ONE (21:14)
[2020-11-01 21:25] LABS: BASOPHILS % (AUTO) 0.3 % (0.0-5.0); EOSINOPHILS % (AUTO) 0.5 % (0.0-8.0); HEMATOCRIT 30.6 % (42-54); LYMPHOCYTES % (AUTO) 6.1 % (21.0-51.0); MEAN CORPUSCULAR HEMOGLOBIN 21.8 pg (27.0-33.0); MEAN CORPUSCULAR HGB CONC 31.4 g/dL (32.0-36.0); MEAN CORPUSCULAR VOLUME 69.4 fL (79-99); MONOCYTES % (AUTO) 9.9 % (3.0-13.0); NEUTROPHILS % (AUTO) 82.9 % (40.0-77.0); PLATELET COUNT (AUTO) 440 K/uL (130-400); RED BLOOD CELL COUNT(AUTO) 4.41 MIL/uL (4.50-6.20); RED CELL DISTRIBUTION WIDTH 17.3 % (11.0-15.5); WHITE BLOOD COUNT (AUTO) 6.2 K/uL (4.8-10.8)
[2020-11-01 21:43] LABS: B-TYPE NATRIURETIC PEPTIDE 52 pg/mL (0-100)
[2020-11-01 22:00] LABS: INR 1.03 (0.85-1.15)
[2020-11-01 22:02] LABS: PARTIAL THROMBOPLASTIN TIME 31.7 SEC (26.3-35.5)
[2020-11-01] MEDS ORDERED: IOHEXOL-350 75 ML VIAL IV ONE (22:03)
[2020-11-01 22:17] LABS: ALBUMIN 3.7 g/dL (3.5-5.0); BILIRUBIN,TOTAL 0.6 mg/dL (0.2-1.0); CREATININE 1.1 mg/dL (0.5-1.5); POTASSIUM 3.6 mmol/L (3.5-5.1); TOTAL PROTEIN, SERUM 7.2 g/dL (6.0-8.3)
[2020-11-02] MEDS ORDERED: 0.9%NACL 1000ML 1,000 ML IV ONE ×2 (01:27→15:22)
[2020-11-02] MEDS ORDERED: ORPHENADRINE CITRATE 30 MG/ML ML ONE (02:13)
[2020-11-02] MEDS ORDERED: MORPHINE 2 MG SYG ONE (02:14)
[2020-11-02 02:20] LABS: AMPHET/METH SCREEN,URINE NEGATIVE (NEGATIVE); BARBITURATE SCREEN, URINE NEGATIVE (NEGATIVE); BENZODIAZEPINES SCREEN,URINE NEGATIVE (NEGATIVE); CANNABINOID SCREEN,URINE NEGATIVE (NEGATIVE); COCAINE SCREEN,URINE NEGATIVE (NEGATIVE); OPIATE SCREEN,URINE NEGATIVE (NEGATIVE); PHENCYCLIDINE SCREEN,URINE NEGATIVE (NEGATIVE)
[2020-11-02 02:47] LABS: THYROID STIMULATING HORMONE 1.39 uIU/mL (0.36-3.74)
[2020-11-02] MEDS ORDERED: HYDROCODONE/ACETAMINOPHEN 5/325 MG TAB PO PRN (03:00)
[2020-11-02] MEDS ORDERED: ACETAMINOPHEN 325 MG TAB PO PRN ×2 (03:00)
[2020-11-02] MEDS ORDERED: ONDANSETRON 4MG INJ IV PRN (03:00)
[2020-11-02] MEDS ORDERED: HYDROMORPHONE 1 MG INJ IVP ONE (04:00)
[2020-11-02] MEDS: FAMOTIDINE 20MG VIAL IV SCH ×2 (09:00→22:05)
[2020-11-02] MEDS: LIDOCAINE 5% TOPICAL PATCH TP SCH (09:00)
[2020-11-02] MEDS ORDERED: LIDOCAINE 5% TOPICAL PATCH TP ONE (11:42)
[2020-11-02] MEDS ORDERED: CYCLOBENZAPRINE HCL 10 MG TABLET ONE (11:43)
[2020-11-02] MEDS ORDERED: HYDROCODONE/ACETAMINOPHEN 5/325 MG TAB ONE (11:43)
[2020-11-02] MEDS ORDERED: FAMOTIDINE 20MG VIAL IV ONE (11:44)
[2020-11-02] MEDS: 0.9%NACL 1000ML 1,000 ML IV SCH ×2 (13:00→22:05)
[2020-11-02] MEDS: GABAPENTIN 100 MG CAPSULE PO SCH ×2 (14:00→22:05)
[2020-11-02] MEDS: LUBIPROSTONE 24 MCG CAP PO SCH (17:00)
[2020-11-02 17:13] VITALS: BP 165/89
[2020-11-02] MEDS: HYDROCODONE/ACETAMINOPHEN 5/325 MG TAB PO PRN (17:34)
[2020-11-02] MEDS: CYCLOBENZAPRINE HCL 10 MG TABLET PO SCH (17:37)
[2020-11-02] MEDS ORDERED: PRED-409 PO (19:05)
[2020-11-02 20:16] VITALS: BP 116/64
[2020-11-02] MEDS: TAMSULOSIN HCL 0.4 MG CAP.ER.24H PO SCH (22:05)
[2020-11-02 23:22] VITALS: BP 121/73
[2020-11-03 03:47] LABS: BASOPHILS % (AUTO) 0.5 % (0.0-5.0); HEMATOCRIT 28.7 % (42-54); LYMPHOCYTES % (AUTO) 7.2 % (21.0-51.0); MONOCYTES % (AUTO) 12.4 % (3.0-13.0); NEUTROPHILS % (AUTO) 77.6 % (40.0-77.0); PLATELET COUNT (AUTO) 401 K/uL (130-400); RED BLOOD CELL COUNT(AUTO) 4.04 MIL/uL (4.50-6.20); RED CELL DISTRIBUTION WIDTH 17.6 % (11.0-15.5)
[2020-11-03 03:49] VITALS: BP 125/63
[2020-11-03 03:59] LABS: % IRON SATURATION 3.4 % (30-44)
[2020-11-03 04:02] LABS: BILIRUBIN,TOTAL 0.4 mg/dL (0.2-1.0); CREATININE 0.9 mg/dL (0.5-1.5); POTASSIUM 3.3 mmol/L (3.5-5.1); TOTAL PROTEIN, SERUM 6.3 g/dL (6.0-8.3)
[2020-11-03] MEDS: LUBIPROSTONE 24 MCG CAP PO SCH ×4 (07:51→17:04)
[2020-11-03 08:04] VITALS: BP 138/83
[2020-11-03] MEDS ORDERED: POTASSIUM CHLORIDE 20MEQ/100ML 100 ML IV PRN (08:30)
[2020-11-03] MEDS ORDERED: LIDOCAINE HCL-MPF 1% 2ML VIAL IV PRN (08:30)
[2020-11-03] MEDS ORDERED: METOPROLOL TARTRATE 1 MG/ML 5ML VIAL IV SCH (08:30)
[2020-11-03] MEDS ORDERED: POTASSIUM CHLORIDE 10% ELIXIR 20 MEQ/15 ML UDCUP PO PRN (08:30)
[2020-11-03] MEDS ORDERED: METOPROLOL TARTRATE 1 MG/ML 5ML VIAL IV ONE (08:32)
[2020-11-03] MEDS: LIDOCAINE 5% TOPICAL PATCH TP SCH (09:03)
[2020-11-03] MEDS: DOCUSATE SODIUM 100 MG CAP PO SCH (09:04)
[2020-11-03] MEDS: FAMOTIDINE 20MG VIAL IV SCH ×2 (09:04→20:28)
[2020-11-03] MEDS: GABAPENTIN 100 MG CAPSULE PO SCH ×3 (09:05→20:29)
[2020-11-03] MEDS: KCL 20 MEQ ERTAB PO PRN ×3 (09:05→17:05)
[2020-11-03] MEDS: HYDROCODONE/ACETAMINOPHEN 5/325 MG TAB PO PRN ×3 (09:06→17:08)
[2020-11-03] MEDS: CYCLOBENZAPRINE HCL 10 MG TABLET PO SCH ×3 (09:06→20:29)
[2020-11-03] MEDS ORDERED: MAGNESIUM 2GM PREMIX 50ML 50 ML IV ONE (09:08)
[2020-11-03 12:15] VITALS: BP 117/73
[2020-11-03] MEDS: ASPIRIN 81MG CHEW TAB PO SCH (13:43)
[2020-11-03 15:44] VITALS: BP 122/78
[2020-11-03] MEDS: APIXABAN 5 MG TABLET PO SCH (20:29)
[2020-11-03] MEDS: ATORVASTATIN 20 MG TABLET PO SCH (20:29)
[2020-11-03] MEDS: METOPROLOL TARTRATE 25 MG TAB PO SCH (20:29)
[2020-11-03] MEDS: TAMSULOSIN HCL 0.4 MG CAP.ER.24H PO SCH (20:29)
[2020-11-03 20:34] VITALS: BP 123/77
[2020-11-03 23:37] VITALS: BP 91/60
[2020-11-04 04:07] VITALS: BP 127/67
[2020-11-04 06:29] LABS: MAGNESIUM 1.5 mg/dL (1.80-2.40)
[2020-11-04] MEDS: LUBIPROSTONE 24 MCG CAP PO SCH ×4 (08:00→17:00)
[2020-11-04] MEDS: ASPIRIN 81MG CHEW TAB PO SCH (09:07)
[2020-11-04] MEDS: FAMOTIDINE 20MG VIAL IV SCH ×2 (09:09→21:18)
[2020-11-04] MEDS: CYCLOBENZAPRINE HCL 10 MG TABLET PO SCH ×3 (09:09→21:17)
[2020-11-04] MEDS: LIDOCAINE 5% TOPICAL PATCH TP SCH (09:10)
[2020-11-04] MEDS: METOPROLOL TARTRATE 25 MG TAB PO SCH ×2 (09:10→21:17)
[2020-11-04] MEDS: DOCUSATE SODIUM 100 MG CAP PO SCH (09:10)
[2020-11-04] MEDS: APIXABAN 5 MG TABLET PO SCH ×2 (09:10→21:17)
[2020-11-04] MEDS: GABAPENTIN 100 MG CAPSULE PO SCH ×3 (09:10→21:18)
[2020-11-04] MEDS: MAGNESIUM 2GM PREMIX 50ML 50 ML IV SCH (09:23)
[2020-11-04 09:27] VITALS: BP 149/80
[2020-11-04] MEDS ORDERED: IOHEXOL 350 MG/ML 100ML INFUS..BTL IV ONE (11:21)
[2020-11-04] MEDS ORDERED: IOHEXOL-350 50ML VIAL IV ONE (11:21)
[2020-11-04 14:32] VITALS: BP 143/93
[2020-11-04 16:38] VITALS: BP 137/50
[2020-11-04 20:36] VITALS: BP 152/81
[2020-11-04] MEDS: ATORVASTATIN 20 MG TABLET PO SCH (21:17)
[2020-11-04] MEDS: TAMSULOSIN HCL 0.4 MG CAP.ER.24H PO SCH (21:17)
[2020-11-05 00:32] VITALS: BP 126/77
[2020-11-05 04:32] VITALS: BP 110/63
[2020-11-05 04:42] LABS: BASOPHILS % (AUTO) 0.6 % (0.0-5.0); EOSINOPHILS % (AUTO) 1.5 % (0.0-8.0); HEMATOCRIT 27.4 % (42-54); LYMPHOCYTES % (AUTO) 12.9 % (21.0-51.0); MEAN CORPUSCULAR HEMOGLOBIN 22.1 pg (27.0-33.0); MEAN CORPUSCULAR VOLUME 71.2 fL (79-99); MONOCYTES % (AUTO) 13.8 % (3.0-13.0); NEUTROPHILS % (AUTO) 70.6 % (40.0-77.0); PLATELET COUNT (AUTO) 356 K/uL (130-400); RED BLOOD CELL COUNT(AUTO) 3.85 MIL/uL (4.50-6.20); RED CELL DISTRIBUTION WIDTH 17.6 % (11.0-15.5); WHITE BLOOD COUNT (AUTO) 5.3 K/uL (4.8-10.8)
[2020-11-05 05:09] LABS: BILIRUBIN,TOTAL 0.3 mg/dL (0.2-1.0); CREATININE 0.9 mg/dL (0.5-1.5); MAGNESIUM 1.4 mg/dL (1.80-2.40); POTASSIUM 3.5 mmol/L (3.5-5.1); TOTAL PROTEIN, SERUM 6.3 g/dL (6.0-8.3)
[2020-11-05] MEDS: MAGNESIUM 2GM PREMIX 50ML 50 ML IV SCH ×2 (05:39→21:06)
[2020-11-05] MEDS: KCL 20 MEQ ERTAB PO PRN ×2 (05:40→10:50)
[2020-11-05] MEDS ORDERED: MAGNESIUM 2GM PREMIX 50ML 50 ML IV PRN (07:15)
[2020-11-05] MEDS: LUBIPROSTONE 24 MCG CAP PO SCH ×4 (08:00→16:58)
[2020-11-05 09:51] VITALS: BP 116/72
[2020-11-05] MEDS: APIXABAN 5 MG TABLET PO SCH ×2 (10:49→21:09)
[2020-11-05] MEDS: HYDROCODONE/ACETAMINOPHEN 5/325 MG TAB PO PRN (10:52)
[2020-11-05] MEDS: LIDOCAINE 5% TOPICAL PATCH TP SCH (10:54)
[2020-11-05] MEDS: DOCUSATE SODIUM 100 MG CAP PO SCH (10:54)
[2020-11-05] MEDS: FAMOTIDINE 20MG VIAL IV SCH ×2 (10:54→21:05)
[2020-11-05] MEDS: MAGNESIUM CHLORIDE 70 MG TABLET.SA PO SCH (10:54)
[2020-11-05] MEDS: METOPROLOL TARTRATE 25 MG TAB PO SCH ×2 (10:54→21:04)
[2020-11-05] MEDS: ASPIRIN 81MG CHEW TAB PO SCH (10:55)
[2020-11-05] MEDS: GABAPENTIN 100 MG CAPSULE PO SCH ×3 (10:55→21:05)
[2020-11-05] MEDS: CYCLOBENZAPRINE HCL 10 MG TABLET PO SCH ×3 (10:59→21:05)
[2020-11-05] MEDS ORDERED: METO25TA6 PO (12:23)
[2020-11-05] MEDS ORDERED: APIX5TAB PO (12:23)
[2020-11-05 13:55] VITALS: BP 111/72
[2020-11-05 19:22] VITALS: BP 119/75
[2020-11-05 20:14] VITALS: BP 140/85
[2020-11-05] MEDS: TAMSULOSIN HCL 0.4 MG CAP.ER.24H PO SCH (21:04)
[2020-11-05] MEDS: ATORVASTATIN 20 MG TABLET PO SCH (21:05)
[2020-11-06 00:48] VITALS: BP 103/45
[2020-11-06] MEDS: HYDROCODONE/ACETAMINOPHEN 5/325 MG TAB PO PRN (03:06)
[2020-11-06 03:38] LABS: MEAN CORPUSCULAR HEMOGLOBIN 21.5 pg (27.0-33.0); MEAN CORPUSCULAR HGB CONC 30.4 g/dL (32.0-36.0); MEAN CORPUSCULAR VOLUME 70.7 fL (79-99); PLATELET COUNT (AUTO) 375 K/uL (130-400); RED BLOOD CELL COUNT(AUTO) 3.82 MIL/uL (4.50-6.20); RED CELL DISTRIBUTION WIDTH 17.8 % (11.0-15.5); WHITE BLOOD COUNT (AUTO) 5.5 K/uL (4.8-10.8)
[2020-11-06 03:47] LABS: ALBUMIN 2.9 g/dL (3.5-5.0); BILIRUBIN,TOTAL 0.3 mg/dL (0.2-1.0); CREATININE 0.9 mg/dL (0.5-1.5); MAGNESIUM 2.9 mg/dL (1.80-2.40); POTASSIUM 3.9 mmol/L (3.5-5.1); TOTAL PROTEIN, SERUM 6.4 g/dL (6.0-8.3)
[2020-11-06 03:59] LABS: BASOPHILS % (MANUAL) 1 % (0-2); EOSINOPHILS % (MANUAL) 1 % (1-6); LYMPHOCYTES % (MANUAL) 8 % (22-44); MONOCYTES % (MANUAL) 7 % (2-9); SEGMENTED NEUTROPHILS % 83 % (40-70)
[2020-11-06 04:00] LABS: MAN.DIFF COMMENT-IMPRESSION MANUAL DIFFERENTIAL
[2020-11-06] MEDS: MAGNESIUM CHLORIDE 70 MG TABLET.SA PO SCH (05:43)
[2020-11-06 06:02] VITALS: BP 111/48
[2020-11-06] MEDS: LUBIPROSTONE 24 MCG CAP PO SCH ×2 (08:00→08:15)
[2020-11-06] MEDS: FAMOTIDINE 20MG VIAL IV SCH (08:14)
[2020-11-06] MEDS: LIDOCAINE 5% TOPICAL PATCH TP SCH (08:14)
[2020-11-06] MEDS: CYCLOBENZAPRINE HCL 10 MG TABLET PO SCH (08:15)
[2020-11-06] MEDS: ASPIRIN 81MG CHEW TAB PO SCH (08:15)
[2020-11-06] MEDS: DOCUSATE SODIUM 100 MG CAP PO SCH (08:15)
[2020-11-06] MEDS: METOPROLOL TARTRATE 25 MG TAB PO SCH (08:15)
[2020-11-06] MEDS: GABAPENTIN 100 MG CAPSULE PO SCH (08:16)
[2020-11-06] MEDS: APIXABAN 5 MG TABLET PO SCH (08:18)
[2020-11-06 10:01] VITALS: BP 122/73
[2021-03-15] MEDS ORDERED: CYCL-309 PO (15:42)
[2021-03-15] MEDS ORDERED: TRAM-355 PO (15:42)
[2021-03-15] MEDS ORDERED: NAPR500T6 PO (15:42)
[2021-03-21] MEDS ORDERED: LEVO500T90 PO (11:54)
[2021-03-27] MEDS ORDERED: LISI20TA24 PO (09:13)
[2021-03-27] MEDS ORDERED: PANT40TA54 PO (09:13)
[2021-03-27] MEDS ORDERED: TRAM100T40 PO (09:13)
[2021-03-27] MEDS ORDERED: FERR-72 PO (09:13)
[2021-04-06] MEDS ORDERED: CLOP75TA14 PO (12:08)
[2021-04-06] MEDS ORDERED: ATOR20TA65 PO (12:08)
[2021-04-07] MEDS ORDERED: VORI200T3 PO (15:11)
== END 2020-11-06 12:13 | disposition home or self-care (01) | DRG 552 ==
LOC: EDH 19:48 → EDHIP 11-02 02:49 → 3DH 11-02 17:19
PROVIDERS: ADMIT Internal Medicine; ATTEND Internal Medicine
DX: M54.9 Dorsalgia, unspecified (principal); E87.1 Hypo-osmolality and hyponatremia; M54.17 Radiculopathy, lumbosacral region; N40.1 Benign prostatic hyperplasia with lower urinary tract symptoms; I48.0 Paroxysmal atrial fibrillation; I25.5 Ischemic cardiomyopathy; Z20.822 Contact with and (suspected) exposure to COVID-19; R33.8 Other retention of urine; K76.0 Fatty (change of) liver, not elsewhere classified; E87.6 Hypokalemia; K59.00 Constipation, unspecified; K57.30 Diverticulosis of large intestine without perforation or abscess without bleeding; E11.51 Type 2 diabetes mellitus with diabetic peripheral angiopathy without gangrene; E78.00 Pure hypercholesterolemia, unspecified; G89.29 Other chronic pain; I70.0 Atherosclerosis of aorta; M48.00 Spinal stenosis, site unspecified; I11.9 Hypertensive heart disease without heart failure; E83.42 Hypomagnesemia; E88.09 Other disorders of plasma-protein metabolism, not elsewhere classified; I25.10 Atherosclerotic heart disease of native coronary artery without angina pectoris; F17.200 Nicotine dependence, unspecified, uncomplicated; Z79.899 Other long term (current) drug therapy; Z82.49 Family history of ischemic heart disease and other diseases of the circulatory system; Z79.82 Long term (current) use of aspirin; Z95.5 Presence of coronary angioplasty implant and graft; Z82.3 Family history of stroke; Z71.6 Tobacco abuse counseling
CPT/HCPCS: 36415; 72128; 72131; 74177; 75635; 80053; 80305; 81003; 82270; 82550; 83540; 83550; 83605; 83630; 83690; 83735; 83880; 84132; 84443; 84484; 85025; 85045; 85610; 85730; 87040; 87046; 87426; 93005; 93306; 93356; 93970; 97039; G0378; J3475; J3490; J7030; Q9967; U0003

== ENCOUNTER 2021-03-01 12:06 | Emergency (ER) | payer MEDICARE ==
[~2021-03-01 12:06] MED LIST changes: +APIX5TAB PO; -CEPH-578 PO; -DOXY100T2 PO; +METO25TA6 PO; -ROSU5TAB12 PO
[2021-03-01 13:46] LABS: APPEARANCE,URINE CLEAR (CLEAR); BILIRUBIN,URINE NEGATIVE (NEGATIVE); COLOR,URINE YELLOW (YELLOW); GLUCOSE, URINE (UA) NEGATIVE (NEGATIVE); KETONES,URINE NEGATIVE (NEGATIVE); LEUKOCYTE ESTERASE ,URINE NEGATIVE (NEGATIVE); NITRATE,URINE NEGATIVE (NEGATIVE); OCCULT BLOOD,URINE NEGATIVE (NEGATIVE); PH,URINE 5.5 (5.0-8.0); PROTEIN,URINE NEGATIVE (NEGATIVE); UROBILINOGEN,URINE 0.2 mg/dL (0.2-1.0)
[2021-03-01] MEDS ORDERED: CYCLOBENZAPRINE HCL 10 MG TABLET ONE (14:32)
[2021-03-01] MEDS ORDERED: HYDROCODONE/ACETAMINOPHEN 10/325 MG TAB ONE (14:32)
[2021-03-01] MEDS ORDERED: KETOROLAC TROMETHAMINE 30MG/ML ONE (14:32)
== END 2021-03-01 14:52 | disposition home or self-care (01) ==
LOC: EDH 12:06
DX: M54.42 Lumbago with sciatica, left side (principal); I10 Essential (primary) hypertension; Z72.0 Tobacco use; Z98.890 Other specified postprocedural states
CPT/HCPCS: 72128; 72131; 81003; 96372; 99285; J1885

== ENCOUNTER 2021-07-25 08:55 | Inpatient (IN) | payer MEDICARE ==
[~2021-07-25] VITALS: Ht 177.8 cm; Wt 64.3 kg
[~2021-07-25 08:55] MED LIST changes: -APIX5TAB PO; +ATOR20TA65 PO; -CELE200 PO; -CILO100T PO; +CLOP75TA14 PO; +FERR-72 PO; -HYDR-4068 PO; +LEVO500T90 PO; -METO25TA6 PO; -NAPR220C15 PO; +PANT40TA54 PO; -PRED5TAB PO; +TRAM100T40 PO; +VORI200T3 PO
[2021-07-25 09:13] LABS: ABG BASE EXCESS -1.4 mmol/L (-2.0-3.0); ABG HCO3 18.6 mmol/L (21.0-28.0); ABG OXYGEN SATURATION 96.2 % (95.0-99.0); ABG PCO2 22 mmHg (35-48)
[2021-07-25 09:19] LABS: BASOPHILS % (AUTO) 0.2 % (0.0-5.0); HEMATOCRIT 44.8 % (42-54); MEAN CORPUSCULAR HEMOGLOBIN 32.8 pg (27.0-33.0); MEAN CORPUSCULAR HGB CONC 34.4 g/dL (32.0-36.0); MEAN CORPUSCULAR VOLUME 95.5 fL (79-99); NEUTROPHILS % (AUTO) 83.5 % (40.0-77.0); PLATELET COUNT (AUTO) 224 K/uL (130-400); RED BLOOD CELL COUNT(AUTO) 4.69 MIL/uL (4.50-6.20); RED CELL DISTRIBUTION WIDTH 14.4 % (11.0-15.5); WHITE BLOOD COUNT (AUTO) 8.6 K/uL (4.8-10.8)
[2021-07-25] MEDS ORDERED: METOPROLOL TARTRATE 1 MG/ML 5ML VIAL IV ONE ×4 (09:39→10:15)
[2021-07-25] MEDS: METOPROLOL TARTRATE 1 MG/ML 5ML VIAL IV SCH ×2 (09:45→10:00)
[2021-07-25] MEDS ORDERED: HYDROCODONE/ACETAMINOPHEN 10/325 MG TAB ONE (09:51)
[2021-07-25] MEDS: HYDROCODONE/ACETAMINOPHEN 10/325 MG TAB PO PRN (10:00)
[2021-07-25] MEDS ORDERED: DILTIAZEM 25MG INJ IVP SCH (10:00)
[2021-07-25 10:12] LABS: B-TYPE NATRIURETIC PEPTIDE 499 pg/mL (0-100)
[2021-07-25] MEDS ORDERED: 0.9%NACL 1000ML 1,000 ML IV SCH (10:15)
[2021-07-25] MEDS ORDERED: SOLU-MEDROL 125MG VIAL IVP SCH (10:16)
[2021-07-25] MEDS ORDERED: IPRATROPIUM/ALBUTEROL SULFATE 3 ML SOLUTION IH SCH (10:16)
[2021-07-25] MEDS ORDERED: FOLI1TAB85 PO (10:33)
[2021-07-25] MEDS ORDERED: VITAD50000 PO (10:33)
[2021-07-25 11:11] LABS: ALBUMIN 2.6 g/dL (3.5-5.0); BILIRUBIN,TOTAL 1.5 mg/dL (0.2-1.0); CREATININE 1.5 mg/dL (0.5-1.5); TOTAL PROTEIN, SERUM 6.3 g/dL (6.0-8.3)
[2021-07-25] MEDS ORDERED: ENOXAPARIN SODIUM 80 MG/0.8 ML SQ SCH (12:11)
[2021-07-25] MEDS ORDERED: LIDOCAINE HCL-MPF 1% 2ML VIAL IJ PRN (13:00)
[2021-07-25] MEDS ORDERED: ONDANSETRON 4MG INJ IVP PRN (13:00)
[2021-07-25] MEDS ORDERED: 0.2% ROPIVACAINE 600ML Q-PUMP IRRIG SCH (13:00)
[2021-07-25] MEDS ORDERED: POTASSIUM CHLORIDE 20MEQ/100ML 100 ML IV PRN (13:00)
[2021-07-25] MEDS ORDERED: POTASSIUM CHLORIDE 10% ELIXIR 20 MEQ/15 ML UDCUP PO PRN ×2 (13:00)
[2021-07-25] MEDS ORDERED: ACETAMINOPHEN 325 MG TAB PO PRN (13:00)
[2021-07-25] MEDS ORDERED: LIDOCAINE HCL-MPF 1% 2ML VIAL IV PRN (13:00)
[2021-07-25] MEDS ORDERED: KCL 20 MEQ ERTAB PO PRN (13:00)
[2021-07-25] MEDS: PANTOPRAZOLE 40 MG TAB DR PO SCH (13:23)
[2021-07-25] MEDS: POTASSIUM CHLORIDE 10MEQ/100ML 100 ML IV PRN (13:24)
[2021-07-25] MEDS ORDERED: TRAMADOL HCL 50 MG TABLET PO PRN (16:00)
[2021-07-25] MEDS ORDERED: METOPROLOL TARTRATE 25 MG TAB ONE (16:20)
[2021-07-25] MEDS: ENOXAPARIN SODIUM 60 MG/0.6 ML SQ SCH (19:24)
[2021-07-25] MEDS: METOPROLOL TARTRATE 25 MG TAB PO SCH (21:06)
[2021-07-25 21:35] VITALS: BP 130/86
[2021-07-25 22:15] LABS: MAGNESIUM 1.2 mg/dL (1.80-2.40); POTASSIUM 3.4 mmol/L (3.5-5.1)
[2021-07-25] MEDS: POTASSIUM CHLORIDE 10 MEQ/TAB.SR PO PRN (22:29)
[2021-07-25] MEDS: MAGNESIUM 2GM PREMIX 50ML 50 ML IV SCH (22:29)
[2021-07-26] VITALS: BP 107/78
[2021-07-26] MEDS: POTASSIUM CHLORIDE 10 MEQ/TAB.SR PO PRN ×3 (00:47→20:31)
[2021-07-26 04:00] VITALS: BP 131/93
[2021-07-26 04:08] LABS: BASOPHILS % (AUTO) 0.1 % (0.0-5.0); HEMATOCRIT 38.9 % (42-54); LYMPHOCYTES % (AUTO) 3.9 % (21.0-51.0); MEAN CORPUSCULAR HEMOGLOBIN 32.3 pg (27.0-33.0); MEAN CORPUSCULAR HGB CONC 33.4 g/dL (32.0-36.0); MEAN CORPUSCULAR VOLUME 96.8 fL (79-99); MONOCYTES % (AUTO) 10.8 % (3.0-13.0); NEUTROPHILS % (AUTO) 84.6 % (40.0-77.0); PLATELET COUNT (AUTO) 219 K/uL (130-400); RED BLOOD CELL COUNT(AUTO) 4.02 MIL/uL (4.50-6.20); RED CELL DISTRIBUTION WIDTH 14.5 % (11.0-15.5); WHITE BLOOD COUNT (AUTO) 9.4 K/uL (4.8-10.8)
[2021-07-26 04:38] LABS: ALBUMIN 2.1 g/dL (3.5-5.0); BILIRUBIN,TOTAL 0.9 mg/dL (0.2-1.0); CREATININE 1.4 mg/dL (0.5-1.5); PHOSPHORUS 4.2 mg/dL (2.5-4.9); POTASSIUM 3.2 mmol/L (3.5-5.1); THYROID STIMULATING HORMONE 0.61 uIU/mL (0.36-3.74); TOTAL PROTEIN, SERUM 5.7 g/dL (6.0-8.3)
[2021-07-26] MEDS: POTASSIUM CHLORIDE 10MEQ/100ML 100 ML IV PRN (05:29)
[2021-07-26 07:00] VITALS: BP 119/84
[2021-07-26] MEDS ORDERED: PANTOPRAZOLE 40 MG TAB DR PO SCH (09:00)
[2021-07-26] MEDS: ENOXAPARIN SODIUM 60 MG/0.6 ML SQ SCH ×2 (09:06→20:30)
[2021-07-26] MEDS: ASPIRIN 81 MG EC TAB PO SCH (09:06)
[2021-07-26] MEDS: LISINOPRIL 20 MG TABLET PO SCH (09:06)
[2021-07-26] MEDS: Vitamin B Complex/Vit C/Folic Acid PO SCH (09:07)
[2021-07-26] MEDS: METOPROLOL TARTRATE 25 MG TAB PO SCH ×2 (09:07→20:31)
[2021-07-26] MEDS: PANTOPRAZOLE 40 MG TAB DR PO SCH (09:19)
[2021-07-26 11:00] VITALS: BP 116/71
[2021-07-26] MEDS: IPRATROPIUM 0.5 MG/2.5 ML INH IH SCH ×3 (14:48→23:44)
[2021-07-26 15:00] VITALS: BP 122/94
[2021-07-26] MEDS: SOLU-MEDROL 40MG VIAL IVP SCH ×2 (15:39→20:31)
[2021-07-26 20:00] VITALS: BP 137/95
[2021-07-27] VITALS: BP 111/73
[2021-07-27 04:00] VITALS: BP 140/98
[2021-07-27 04:38] LABS: MEAN CORPUSCULAR HGB CONC 33.5 g/dL (32.0-36.0); MEAN CORPUSCULAR VOLUME 98.5 fL (79-99); PLATELET COUNT (AUTO) 233 K/uL (130-400); RED BLOOD CELL COUNT(AUTO) 4.06 MIL/uL (4.50-6.20); RED CELL DISTRIBUTION WIDTH 14.6 % (11.0-15.5)
[2021-07-27 04:59] LABS: CREATININE 1.3 mg/dL (0.5-1.5); MAGNESIUM 1.9 mg/dL (1.80-2.40); POTASSIUM 4.2 mmol/L (3.5-5.1)
[2021-07-27] MEDS: MAGNESIUM 2GM PREMIX 50ML 50 ML IV SCH (05:40)
[2021-07-27 06:00] LABS: LYMPHOCYTES % (MANUAL) 5 % (22-44); MONOCYTES % (MANUAL) 4 % (2-9); SEGMENTED NEUTROPHILS % 91 % (40-70)
[2021-07-27 06:01] LABS: MAN.DIFF COMMENT-IMPRESSION MANUAL DIFFERENTIAL; PLATELET MORPHOLOGY COMMENT ADEQUATE
[2021-07-27] MEDS: IPRATROPIUM 0.5 MG/2.5 ML INH IH SCH ×3 (06:33→18:37)
[2021-07-27 07:00] VITALS: BP 152/96
[2021-07-27] MEDS ORDERED: REGADENOSON 0.4 MG/5 ML PF SYG IVP SCH (08:30)
[2021-07-27 11:00] VITALS: BP 152/103
[2021-07-27] MEDS: Vitamin B Complex/Vit C/Folic Acid PO SCH (11:14)
[2021-07-27] MEDS: PANTOPRAZOLE 40 MG TAB DR PO SCH (11:15)
[2021-07-27] MEDS: ASPIRIN 81 MG EC TAB PO SCH (11:15)
[2021-07-27] MEDS: METOPROLOL TARTRATE 25 MG TAB PO SCH ×2 (11:15→21:06)
[2021-07-27] MEDS: LISINOPRIL 20 MG TABLET PO SCH (11:15)
[2021-07-27] MEDS: SOLU-MEDROL 40MG VIAL IVP SCH ×2 (11:15→21:07)
[2021-07-27] MEDS: ENOXAPARIN SODIUM 60 MG/0.6 ML SQ SCH ×2 (11:16→21:06)
[2021-07-27 15:00] VITALS: BP 126/87
[2021-07-27 20:00] VITALS: BP 130/83
[2021-07-27] MEDS: HYDROCODONE/ACETAMINOPHEN 10/325 MG TAB PO PRN (21:07)
[2021-07-28] VITALS: BP 119/91
[2021-07-28] MEDS: IPRATROPIUM 0.5 MG/2.5 ML INH IH SCH ×5 (00:14→23:44)
[2021-07-28 04:00] VITALS: BP 135/80
[2021-07-28 04:26] LABS: HEMATOCRIT 41.1 % (42-54); MEAN CORPUSCULAR HEMOGLOBIN 32.3 pg (27.0-33.0); MEAN CORPUSCULAR HGB CONC 33.3 g/dL (32.0-36.0); MEAN CORPUSCULAR VOLUME 96.9 fL (79-99); PLATELET COUNT (AUTO) 292 K/uL (130-400); RED BLOOD CELL COUNT(AUTO) 4.24 MIL/uL (4.50-6.20); RED CELL DISTRIBUTION WIDTH 14.4 % (11.0-15.5); WHITE BLOOD COUNT (AUTO) 9.6 K/uL (4.8-10.8)
[2021-07-28 04:35] LABS: ALBUMIN 2.1 g/dL (3.5-5.0); BILIRUBIN,TOTAL 0.6 mg/dL (0.2-1.0); CREATININE 1.2 mg/dL (0.5-1.5); MAGNESIUM 2.1 mg/dL (1.80-2.40); TOTAL PROTEIN, SERUM 5.8 g/dL (6.0-8.3)
[2021-07-28 04:55] LABS: MONOCYTES % (MANUAL) 5 % (2-9); SEGMENTED NEUTROPHILS % 95 % (40-70)
[2021-07-28 04:57] LABS: MAN.DIFF COMMENT-IMPRESSION MANUAL DIFFERENTIAL
[2021-07-28 04:59] LABS: PLATELET MORPHOLOGY COMMENT ADEQUATE
[2021-07-28 08:00] VITALS: BP 157/98
[2021-07-28] MEDS: Vitamin B Complex/Vit C/Folic Acid PO SCH (08:55)
[2021-07-28] MEDS: SOLU-MEDROL 40MG VIAL IVP SCH ×2 (08:55→20:46)
[2021-07-28] MEDS: METOPROLOL TARTRATE 25 MG TAB PO SCH ×2 (08:55→20:46)
[2021-07-28] MEDS: PANTOPRAZOLE 40 MG TAB DR PO SCH (08:55)
[2021-07-28] MEDS: ASPIRIN 81 MG EC TAB PO SCH (08:55)
[2021-07-28] MEDS: LISINOPRIL 20 MG TABLET PO SCH (08:55)
[2021-07-28] MEDS: ENOXAPARIN SODIUM 60 MG/0.6 ML SQ SCH ×2 (08:58→20:45)
[2021-07-28] MEDS: HYDROCODONE/ACETAMINOPHEN 10/325 MG TAB PO PRN (09:02)
[2021-07-28 11:09] LABS: ABG BASE EXCESS -0.3 mmol/L (-2.0-3.0); ABG HCO3 22.7 mmol/L (21.0-28.0); ABG PCO2 33 mmHg (35-48)
[2021-07-28 12:00] VITALS: BP 133/67
[2021-07-28 16:00] VITALS: BP 149/95
[2021-07-28 20:32] VITALS: BP 158/98
[2021-07-29 00:36] VITALS: BP 156/95
[2021-07-29 04:36] VITALS: BP 153/96
[2021-07-29 04:40] LABS: HEMATOCRIT 41.6 % (42-54); MEAN CORPUSCULAR HEMOGLOBIN 32.7 pg (27.0-33.0); MEAN CORPUSCULAR HGB CONC 32.9 g/dL (32.0-36.0); MEAN CORPUSCULAR VOLUME 99.3 fL (79-99); PLATELET COUNT (AUTO) 326 K/uL (130-400); RED BLOOD CELL COUNT(AUTO) 4.19 MIL/uL (4.50-6.20); RED CELL DISTRIBUTION WIDTH 14.5 % (11.0-15.5); WHITE BLOOD COUNT (AUTO) 8.6 K/uL (4.8-10.8)
[2021-07-29 05:02] LABS: CREATININE 1.1 mg/dL (0.5-1.5)
[2021-07-29 05:29] LABS: LYMPHOCYTES % (MANUAL) 7 % (22-44); MAN.DIFF COMMENT-IMPRESSION MANUAL DIFFERENTIAL; MONOCYTES % (MANUAL) 5 % (2-9); SEGMENTED NEUTROPHILS % 88 % (40-70)
[2021-07-29 05:31] LABS: PLATELET MORPHOLOGY COMMENT ADEQUATE
[2021-07-29] MEDS: IPRATROPIUM 0.5 MG/2.5 ML INH IH SCH ×3 (06:43→18:23)
[2021-07-29 08:00] VITALS: BP 186/114
[2021-07-29] MEDS: LISINOPRIL 40 MG TABLET PO SCH (09:49)
[2021-07-29] MEDS: Vitamin B Complex/Vit C/Folic Acid PO SCH (09:49)
[2021-07-29] MEDS: PANTOPRAZOLE 40 MG TAB DR PO SCH (09:49)
[2021-07-29] MEDS: SOLU-MEDROL 40MG VIAL IVP SCH (09:50)
[2021-07-29] MEDS: METOPROLOL TARTRATE 50 MG TAB PO SCH ×2 (09:50→21:05)
[2021-07-29 12:00] VITALS: BP 146/84
[2021-07-29 16:00] VITALS: BP 136/104
[2021-07-29 20:32] VITALS: BP 144/84
[2021-07-29] MEDS: HYDROCODONE/ACETAMINOPHEN 10/325 MG TAB PO PRN (21:05)
[2021-07-30] VITALS: BP 121/76
[2021-07-30 03:47] LABS: HEMATOCRIT 41.5 % (42-54); MEAN CORPUSCULAR HEMOGLOBIN 32.1 pg (27.0-33.0); MEAN CORPUSCULAR HGB CONC 32.8 g/dL (32.0-36.0); MEAN CORPUSCULAR VOLUME 97.9 fL (79-99); PLATELET COUNT (AUTO) 411 K/uL (130-400); RED BLOOD CELL COUNT(AUTO) 4.24 MIL/uL (4.50-6.20); RED CELL DISTRIBUTION WIDTH 14.4 % (11.0-15.5); WHITE BLOOD COUNT (AUTO) 10.2 K/uL (4.8-10.8)
[2021-07-30 04:04] LABS: ALBUMIN 2.5 g/dL (3.5-5.0); BILIRUBIN,TOTAL 0.5 mg/dL (0.2-1.0); MAGNESIUM 1.7 mg/dL (1.80-2.40); POTASSIUM 3.8 mmol/L (3.5-5.1); TOTAL PROTEIN, SERUM 6.4 g/dL (6.0-8.3)
[2021-07-30 04:30] VITALS: BP 140/55
[2021-07-30 04:46] LABS: LYMPHOCYTES % (MANUAL) 6 % (22-44); MAN.DIFF COMMENT-IMPRESSION MANUAL DIFFERENTIAL; MONOCYTES % (MANUAL) 6 % (2-9); SEGMENTED NEUTROPHILS % 88 % (40-70)
[2021-07-30 04:47] LABS: PLATELET MORPHOLOGY COMMENT ADEQUATE
[2021-07-30] MEDS: IPRATROPIUM 0.5 MG/2.5 ML INH IH SCH ×5 (06:14→23:35)
[2021-07-30] MEDS: MAGNESIUM 2GM PREMIX 50ML 50 ML IV SCH (06:34)
[2021-07-30 08:00] VITALS: BP 140/92
[2021-07-30] MEDS: PREDNISONE 20 MG TABLET PO SCH (09:22)
[2021-07-30] MEDS: PANTOPRAZOLE 40 MG TAB DR PO SCH (09:22)
[2021-07-30] MEDS: POTASSIUM CHLORIDE 10 MEQ/TAB.SR PO PRN ×2 (09:22→14:11)
[2021-07-30] MEDS: Vitamin B Complex/Vit C/Folic Acid PO SCH (09:23)
[2021-07-30] MEDS: METOPROLOL TARTRATE 50 MG TAB PO SCH ×2 (09:23→17:38)
[2021-07-30] MEDS: LISINOPRIL 40 MG TABLET PO SCH (09:23)
[2021-07-30 11:38] VITALS: BP 146/69
[2021-07-30] MEDS ORDERED: RIVAROXABAN 2.5 MG TABLET PO SCH (12:00)
[2021-07-30] MEDS ORDERED: RIVAROXABAN 20 MG TABLET PO SCH (14:00)
[2021-07-30] MEDS: FUROSEMIDE 20MG VIAL IV SCH (14:10)
[2021-07-30 16:00] VITALS: BP 108/75
[2021-07-30 23:40] VITALS: BP 118/76
[2021-07-31] MEDS ORDERED: TRAMADOL HCL 50 MG TABLET ONE (01:15)
[2021-07-31] MEDS: TRAMADOL HCL 50 MG TABLET PO PRN ×2 (01:18→20:44)
[2021-07-31 02:17] VITALS: BP 134/83
[2021-07-31 05:37] VITALS: BP 124/65
[2021-07-31] MEDS: IPRATROPIUM 0.5 MG/2.5 ML INH IH SCH ×3 (06:36→18:27)
[2021-07-31 08:43] VITALS: BP 123/68
[2021-07-31] MEDS: METOPROLOL TARTRATE 50 MG TAB PO SCH ×2 (09:38→20:45)
[2021-07-31] MEDS: Vitamin B Complex/Vit C/Folic Acid PO SCH (09:38)
[2021-07-31] MEDS: PANTOPRAZOLE 40 MG TAB DR PO SCH (09:38)
[2021-07-31] MEDS: RIVAROXABAN 20 MG TABLET PO SCH (09:39)
[2021-07-31] MEDS: PREDNISONE 20 MG TABLET PO SCH (09:39)
[2021-07-31] MEDS: LISINOPRIL 40 MG TABLET PO SCH ×2 (09:46→10:00)
[2021-07-31] MEDS ORDERED: LISINOPRIL 40 MG TABLET PO SCH (11:00)
[2021-07-31] MEDS: FUROSEMIDE 20MG VIAL IV SCH ×3 (12:00→23:24)
[2021-07-31 13:40] VITALS: BP 127/80
[2021-07-31 16:35] VITALS: BP 121/78
[2021-07-31 20:25] VITALS: BP 119/76
[2021-08-01 00:21] VITALS: BP 144/95
[2021-08-01] MEDS: IPRATROPIUM 0.5 MG/2.5 ML INH IH SCH ×4 (00:27→18:21)
[2021-08-01 04:37] VITALS: BP 135/81
[2021-08-01 08:09] VITALS: BP 147/91
[2021-08-01] MEDS: METOPROLOL TARTRATE 50 MG TAB PO SCH ×2 (08:10→20:37)
[2021-08-01] MEDS: PANTOPRAZOLE 40 MG TAB DR PO SCH (08:10)
[2021-08-01] MEDS: Vitamin B Complex/Vit C/Folic Acid PO SCH (08:11)
[2021-08-01] MEDS: LISINOPRIL 40 MG TABLET PO SCH (08:11)
[2021-08-01] MEDS: RIVAROXABAN 20 MG TABLET PO SCH (08:11)
[2021-08-01] MEDS: PREDNISONE 20 MG TABLET PO SCH (08:11)
[2021-08-01 12:11] VITALS: BP 120/77
[2021-08-01] MEDS: FUROSEMIDE 40MG VIAL IV SCH ×2 (12:15→23:36)
[2021-08-01 16:35] VITALS: BP 113/83
[2021-08-01] MEDS: TRAMADOL HCL 50 MG TABLET PO PRN (20:37)
[2021-08-01] MEDS: ATORVASTATIN 20 MG TABLET PO SCH (20:37)
[2021-08-01 21:09] VITALS: BP 117/46
[2021-08-02] MEDS: IPRATROPIUM 0.5 MG/2.5 ML INH IH SCH ×5 (00:10→23:25)
[2021-08-02 01:01] VITALS: BP 145/85
[2021-08-02 04:39] LABS: HEMATOCRIT 36.1 % (42-54); MEAN CORPUSCULAR HEMOGLOBIN 32.5 pg (27.0-33.0); MEAN CORPUSCULAR HGB CONC 33.5 g/dL (32.0-36.0); PLATELET COUNT (AUTO) 434 K/uL (130-400); RED BLOOD CELL COUNT(AUTO) 3.72 MIL/uL (4.50-6.20); RED CELL DISTRIBUTION WIDTH 13.9 % (11.0-15.5); WHITE BLOOD COUNT (AUTO) 8.1 K/uL (4.8-10.8)
[2021-08-02 04:55] LABS: PHOSPHORUS 3.4 mg/dL (2.5-4.9); POTASSIUM 3.4 mmol/L (3.5-5.1)
[2021-08-02 05:01] VITALS: BP 142/75
[2021-08-02 05:35] LABS: LYMPHOCYTES % (MANUAL) 13 % (22-44); MAN.DIFF COMMENT-IMPRESSION MANUAL DIFFERENTIAL; MONOCYTES % (MANUAL) 1 % (2-9); REACTIVE LYMPHOCYTES 2 % (0-0); SEGMENTED NEUTROPHILS % 84 % (40-70)
[2021-08-02 05:36] LABS: PLATELET MORPHOLOGY COMMENT SLIGHT INCREASED
[2021-08-02 08:00] VITALS: BP 141/81
[2021-08-02] MEDS: Vitamin B Complex/Vit C/Folic Acid PO SCH (10:00)
[2021-08-02] MEDS: PANTOPRAZOLE 40 MG TAB DR PO SCH (10:00)
[2021-08-02] MEDS: PREDNISONE 20 MG TABLET PO SCH (10:00)
[2021-08-02] MEDS: RIVAROXABAN 20 MG TABLET PO SCH (10:00)
[2021-08-02] MEDS: LISINOPRIL 40 MG TABLET PO SCH (10:01)
[2021-08-02] MEDS: METOPROLOL TARTRATE 50 MG TAB PO SCH ×2 (10:01→20:47)
[2021-08-02] MEDS: TRAMADOL HCL 50 MG TABLET PO PRN ×2 (10:07→17:24)
[2021-08-02] MEDS: FUROSEMIDE 40MG VIAL IV SCH (10:09)
[2021-08-02 12:00] VITALS: BP 124/71
[2021-08-02 16:00] VITALS: BP 102/50
[2021-08-02 20:14] VITALS: BP 112/64
[2021-08-02] MEDS: POTASSIUM CHLORIDE 10 MEQ/TAB.SR PO PRN (20:47)
[2021-08-02] MEDS: ATORVASTATIN 20 MG TABLET PO SCH (20:47)
[2021-08-02] MEDS: FUROSEMIDE 40 MG TABLET PO SCH (20:47)
[2021-08-03 00:52] VITALS: BP 128/72
[2021-08-03 04:57] VITALS: BP 118/61
[2021-08-03] MEDS: IPRATROPIUM 0.5 MG/2.5 ML INH IH SCH ×2 (07:01→11:14)
[2021-08-03 08:09] LABS: HEMATOCRIT 36.3 % (42-54); MEAN CORPUSCULAR HGB CONC 33.1 g/dL (32.0-36.0); MEAN CORPUSCULAR VOLUME 96.8 fL (79-99); RED BLOOD CELL COUNT(AUTO) 3.75 MIL/uL (4.50-6.20); RED CELL DISTRIBUTION WIDTH 13.9 % (11.0-15.5); WHITE BLOOD COUNT (AUTO) 7.8 K/uL (4.8-10.8)
[2021-08-03 08:23] LABS: POTASSIUM 3.5 mmol/L (3.5-5.1)
[2021-08-03 08:59] VITALS: BP 122/72
[2021-08-03] MEDS: FUROSEMIDE 40 MG TABLET PO SCH (09:23)
[2021-08-03] MEDS: PREDNISONE 20 MG TABLET PO SCH (09:24)
[2021-08-03] MEDS: PANTOPRAZOLE 40 MG TAB DR PO SCH (09:24)
[2021-08-03] MEDS: LISINOPRIL 40 MG TABLET PO SCH (09:24)
[2021-08-03] MEDS: TRAMADOL HCL 50 MG TABLET PO PRN (09:24)
[2021-08-03] MEDS: RIVAROXABAN 20 MG TABLET PO SCH (09:24)
[2021-08-03] MEDS: Vitamin B Complex/Vit C/Folic Acid PO SCH (09:24)
[2021-08-03] MEDS: METOPROLOL TARTRATE 50 MG TAB PO SCH (09:24)
[2021-08-03 12:43] VITALS: BP 111/63
[2021-08-03] MEDS ORDERED: FURO40TA7 PO (13:05)
[2021-08-03] MEDS ORDERED: PRED20B PO (13:05)
[2021-08-03] MEDS ORDERED: RIVA20TA PO (13:05)
[2021-08-03] MEDS ORDERED: IPRNEB IH (13:05)
[2021-08-03] MEDS ORDERED: METO50 PO (13:05)
== END 2021-08-03 16:45 | disposition home or self-care (01) | DRG 308 ==
LOC: EDH 08:55 → EDHIP 11:36 → 4DH 22:08
PROVIDERS: ADMIT Internal Medicine Nephrology; ATTEND Internal Medicine Nephrology
DX: I48.0 Paroxysmal atrial fibrillation (principal); I50.33 Acute on chronic diastolic (congestive) heart failure; J44.1 Chronic obstructive pulmonary disease with (acute) exacerbation; E44.0 Moderate protein-calorie malnutrition; J96.11 Chronic respiratory failure with hypoxia; E87.1 Hypo-osmolality and hyponatremia; I11.0 Hypertensive heart disease with heart failure; I73.9 Peripheral vascular disease, unspecified; M48.061 Spinal stenosis, lumbar region without neurogenic claudication; E87.6 Hypokalemia; N28.9 Disorder of kidney and ureter, unspecified; E83.42 Hypomagnesemia; Z20.822 Contact with and (suspected) exposure to COVID-19; M19.90 Unspecified osteoarthritis, unspecified site; E78.5 Hyperlipidemia, unspecified; I25.10 Atherosclerotic heart disease of native coronary artery without angina pectoris; F17.210 Nicotine dependence, cigarettes, uncomplicated; N40.0 Benign prostatic hyperplasia without lower urinary tract symptoms; D72.810 Lymphocytopenia; D64.9 Anemia, unspecified; R53.81 Other malaise; Z68.20 Body mass index [BMI] 20.0-20.9, adult; Z71.6 Tobacco abuse counseling; Z87.11 Personal history of peptic ulcer disease; Z95.5 Presence of coronary angioplasty implant and graft; Z79.02 Long term (current) use of antithrombotics/antiplatelets; Z91.14 Patient's other noncompliance with medication regimen; Z91.19 Patient's noncompliance with other medical treatment and regimen
CPT/HCPCS: 36415; 36600; 71045; 78452; 80048; 80053; 82550; 82803; 83605; 83735; 83874; 83880; 84100; 84132; 84443; 84484; 85025; 85027; 87635; 87804; 93005; 93017; 93306; 94640; 94664; 96374; 97039; 99291; A9500; C9803; G0378; J1650; J1940; J2785; J2920; J2930; J3475; J3490

== ENCOUNTER 2021-08-27 13:36 | Emergency (ER) | payer MEDICARE ==
[~2021-08-27] VITALS: Ht 165.1 cm; Wt 65.8 kg
[~2021-08-27 13:36] MED LIST changes: +FOLI1TAB85 PO; +FURO40TA7 PO; +IPRNEB IH; -LEVO500T90 PO; +METO50 PO; +PRED20B PO; +RIVA20TA PO; +VITAD50000 PO; -VORI200T3 PO
[2021-08-27] MEDS ORDERED: DIAZEPAM 5 MG/ML 2 ML SYG IVP ONE (14:00)
[2021-08-27] MEDS ORDERED: HYDROCODONE/ACETAMINOPHEN 5/325 MG TAB PO ONE (14:00)
[2021-08-27] MEDS ORDERED: DIAZEPAM 5 MG TABLET ONE (14:02)
[2021-08-27] MEDS ORDERED: FENTANYL 50 MCG/HR PATCH TD SCH (15:00)
[2021-08-27] MEDS ORDERED: CYCL10TA16 PO (15:04)
[2021-08-27 15:13] VITALS: BP 117/83
== END 2021-08-27 16:14 | disposition home or self-care (01) ==
LOC: EDH 13:36
DX: M47.26 Other spondylosis with radiculopathy, lumbar region (principal); I10 Essential (primary) hypertension; M19.90 Unspecified osteoarthritis, unspecified site; F17.200 Nicotine dependence, unspecified, uncomplicated; Z79.52 Long term (current) use of systemic steroids; Z79.82 Long term (current) use of aspirin; Z79.899 Other long term (current) drug therapy
CPT/HCPCS: 72131; 96374

== ENCOUNTER 2021-09-24 13:58 | Inpatient (IN) | payer MEDICARE ==
[~2021-09-24] VITALS: Ht 157.5 cm; Wt 68.0 kg
[~2021-09-24 13:58] MED LIST changes: +CYCL10TA16 PO
[2021-09-24 14:26] LABS: BASOPHILS % (AUTO) 0.8 % (0.0-5.0); EOSINOPHILS % (AUTO) 0.8 % (0.0-8.0); HEMATOCRIT 30.1 % (42-54); LYMPHOCYTES % (AUTO) 6.6 % (21.0-51.0); MEAN CORPUSCULAR HEMOGLOBIN 33.8 pg (27.0-33.0); MEAN CORPUSCULAR HGB CONC 32.2 g/dL (32.0-36.0); MEAN CORPUSCULAR VOLUME 104.9 fL (79-99); NEUTROPHILS % (AUTO) 80.6 % (40.0-77.0); PLATELET COUNT (AUTO) 340 K/uL (130-400); RED BLOOD CELL COUNT(AUTO) 2.87 MIL/uL (4.50-6.20); RED CELL DISTRIBUTION WIDTH 14.4 % (11.0-15.5); WHITE BLOOD COUNT (AUTO) 4.8 K/uL (4.8-10.8)
[2021-09-24] MEDS ORDERED: VANCOMYCIN 1G VIAL IVPB ONE (14:30)
[2021-09-24 14:38] LABS: CREATININE 1.1 mg/dL (0.5-1.5); POTASSIUM 3.1 mmol/L (3.5-5.1)
[2021-09-24 14:49] LABS: ALBUMIN 3.2 g/dL (3.5-5.0); BILIRUBIN,TOTAL 0.4 mg/dL (0.2-1.0); TOTAL PROTEIN, SERUM 6.7 g/dL (6.0-8.3)
[2021-09-24] MEDS: ZOSYN 3.375GM +NS 50ML IV SCH ×2 (15:03→21:40)
[2021-09-24] MEDS ORDERED: VANCOMYCIN PROTOCOL PER PHARMACY IV SCH (15:30)
[2021-09-24] MEDS ORDERED: ONDANSETRON 4MG INJ IV PRN (15:30)
[2021-09-24] MEDS ORDERED: ACETAMINOPHEN 325 MG TAB PO PRN (15:30)
[2021-09-24] MEDS ORDERED: VANCOMYCIN 1G/250ML KIT 250 ML IV ONE (15:33)
[2021-09-24 16:07] LABS: INR 1.04 (0.85-1.15); PROTHROMBIN TIME 11.3 SEC (9.6-11.6)
[2021-09-24 16:09] LABS: PARTIAL THROMBOPLASTIN TIME 38.2 SEC (26.3-35.5)
[2021-09-24] MEDS: 0.9%NACL 1000ML 1,000 ML IV SCH (16:22)
[2021-09-24] MEDS ORDERED: FERR-72 PO (16:41)
[2021-09-24] MEDS ORDERED: FOLI0.8T22 PO (16:41)
[2021-09-24] MEDS ORDERED: DOXY-336 PO (16:41)
[2021-09-24] MEDS ORDERED: PRED5TAB PO (16:41)
[2021-09-24 19:14] VITALS: BP 115/96
[2021-09-24 20:00] VITALS: BP 135/75
[2021-09-24 20:38] LABS: APPEARANCE,URINE Cloudy (CLEAR); BILIRUBIN,URINE Negative (NEGATIVE); COLOR,URINE Yellow (YELLOW); GLUCOSE, URINE (UA) Negative (NEGATIVE); KETONES,URINE Negative (NEGATIVE); LEUKOCYTE ESTERASE ,URINE Negative (NEGATIVE); NITRATE,URINE Negative (NEGATIVE); OCCULT BLOOD,URINE Negative (NEGATIVE); PH,URINE 6.5 (5.0-8.0); PROTEIN,URINE Negative (NEGATIVE); UROBILINOGEN,URINE 0.2 mg/dL (0.2-1.0)
[2021-09-24 20:49] LABS: BACTERIA,URINE Rare /HPF (None Seen); RBC,URINE 0-1 /HPF (0-1); SQUAMOUS EPITHELIAL CELL,UR Rare /HPF (0-2); WBC,URINE 0-1 /HPF (0-1)
[2021-09-24] MEDS: FAMOTIDINE 20MG VIAL IV SCH (21:40)
[2021-09-24] MEDS ORDERED: METOPROLOL TARTRATE 1 MG/ML 5ML VIAL IV ONE ×3 (22:11→23:30)
[2021-09-24] MEDS ORDERED: KCL 20 MEQ ERTAB PO ONE (22:23)
[2021-09-24] MEDS ORDERED: POTASSIUM CHLORIDE 20MEQ/100ML 100 ML IV PRN (22:30)
[2021-09-24] MEDS ORDERED: POTASSIUM CHLORIDE 10% ELIXIR 20 MEQ/15 ML UDCUP PO PRN (22:30)
[2021-09-24] MEDS ORDERED: LIDOCAINE HCL-MPF 1% 2ML VIAL IV PRN (22:30)
[2021-09-24] MEDS ORDERED: 0.9% NACL 250ML 250 ML ONE (23:46)
[2021-09-24] MEDS: VANCOMYCIN 1G/250ML KIT 250 ML IV SCH (23:50)
[2021-09-25] VITALS: BP 130/91
[2021-09-25] MEDS: KCL 20 MEQ ERTAB PO PRN (00:37)
[2021-09-25 04:00] VITALS: BP 109/66
[2021-09-25] MEDS: ZOSYN 3.375GM +NS 50ML IV SCH ×3 (05:29→22:00)
[2021-09-25] MEDS: 0.9%NACL 1000ML 1,000 ML IV SCH ×2 (05:30→20:04)
[2021-09-25 08:01] VITALS: BP 145/85
[2021-09-25] MEDS: VANCOMYCIN 1G/250ML KIT 250 ML IV SCH ×2 (08:36→20:04)
[2021-09-25] MEDS: FAMOTIDINE 20MG VIAL IV SCH ×2 (08:36→19:51)
[2021-09-25] MEDS: METOPROLOL TARTRATE 50 MG TAB PO SCH ×2 (08:36→19:51)
[2021-09-25 08:57] LABS: CREATININE 1.3 mg/dL (0.5-1.5); MAGNESIUM 1.6 mg/dL (1.80-2.40); POTASSIUM 3.4 mmol/L (3.5-5.1)
[2021-09-25] MEDS: ACETAMINOPHEN 325 MG TAB PO PRN (08:58)
[2021-09-25] MEDS ORDERED: ENOXAPARIN SODIUM 40 MG/0.4 ML SYRINGE SQ SCH (09:00)
[2021-09-25] MEDS ORDERED: PANTOPRAZOLE 40 MG TAB DR PO SCH (09:45)
[2021-09-25] MEDS ORDERED: ASPIRIN 81 MG EC TAB PO SCH (09:45)
[2021-09-25] MEDS ORDERED: KCL 20 MEQ ERTAB PO SCH (10:00)
[2021-09-25] MEDS: MAGNESIUM 2GM PREMIX 50ML 50 ML IV PRN (10:11)
[2021-09-25] MEDS: TRAMADOL HCL 50 MG TABLET PO PRN (11:36)
[2021-09-25 12:03] VITALS: BP 133/76
[2021-09-25] MEDS: FERROUS SULFATE 325 MG TABLET.DR PO SCH ×2 (14:18→19:51)
[2021-09-25 16:00] VITALS: BP 139/76
[2021-09-25] MEDS ORDERED: IOHEXOL-350 75 ML VIAL IV ONE (18:27)
[2021-09-25] MEDS ORDERED: IOHEXOL-350 50ML VIAL IV ONE (18:27)
[2021-09-25] MEDS ORDERED: 0.9% NACL 250ML 250 ML ONE (19:43)
[2021-09-25] MEDS: PANTOPRAZOLE 40 MG/VIAL IVP SCH (19:50)
[2021-09-25] MEDS: CYCLOBENZAPRINE HCL 10 MG TABLET PO SCH (19:51)
[2021-09-25 20:00] VITALS: BP 142/91
[2021-09-26] VITALS: BP 127/82
[2021-09-26] MEDS: TRAMADOL HCL 50 MG TABLET PO PRN ×2 (03:26→19:07)
[2021-09-26 03:55] VITALS: BP 146/87
[2021-09-26] MEDS: ZOSYN 3.375GM +NS 50ML IV SCH ×3 (05:07→20:57)
[2021-09-26 06:21] LABS: BASOPHILS % (AUTO) 1.2 % (0.0-5.0); EOSINOPHILS % (AUTO) 1.8 % (0.0-8.0); HEMATOCRIT 26.8 % (42-54); LYMPHOCYTES % (AUTO) 7.7 % (21.0-51.0); MEAN CORPUSCULAR HEMOGLOBIN 33.7 pg (27.0-33.0); MEAN CORPUSCULAR VOLUME 108.9 fL (79-99); MONOCYTES % (AUTO) 11.9 % (3.0-13.0); NEUTROPHILS % (AUTO) 77.2 % (40.0-77.0); PLATELET COUNT (AUTO) 294 K/uL (130-400); RED BLOOD CELL COUNT(AUTO) 2.46 MIL/uL (4.50-6.20); RED CELL DISTRIBUTION WIDTH 14.6 % (11.0-15.5); WHITE BLOOD COUNT (AUTO) 4.9 K/uL (4.8-10.8)
[2021-09-26 06:29] LABS: CREATININE 1.2 mg/dL (0.5-1.5); MAGNESIUM 2.2 mg/dL (1.80-2.40); POTASSIUM 3.9 mmol/L (3.5-5.1)
[2021-09-26 08:00] VITALS: BP 143/87
[2021-09-26] MEDS: VANCOMYCIN 1G/250ML KIT 250 ML IV SCH ×2 (08:36→20:54)
[2021-09-26] MEDS: FAMOTIDINE 20MG VIAL IV SCH ×2 (08:36→20:54)
[2021-09-26] MEDS: CYCLOBENZAPRINE HCL 10 MG TABLET PO SCH ×2 (08:37→20:54)
[2021-09-26] MEDS: METOPROLOL TARTRATE 50 MG TAB PO SCH ×2 (08:37→20:54)
[2021-09-26] MEDS: Vitamin B Complex/Vit C/Folic Acid PO SCH (08:37)
[2021-09-26] MEDS: PANTOPRAZOLE 40 MG/VIAL IVP SCH ×2 (08:37→20:54)
[2021-09-26] MEDS: FERROUS SULFATE 325 MG TABLET.DR PO SCH ×3 (08:37→20:54)
[2021-09-26] MEDS ORDERED: MORPHINE 2 MG SYG IVP SCH (10:11)
[2021-09-26 11:24] LABS: HEMATOCRIT 27.3 % (42-54)
[2021-09-26 12:00] VITALS: BP 149/82
[2021-09-26] MEDS: 0.9%NACL 1000ML 1,000 ML IV SCH ×2 (13:07→21:06)
[2021-09-26 16:00] VITALS: BP 125/75
[2021-09-26 20:00] VITALS: BP 145/91
[2021-09-27] VITALS: BP 123/66
[2021-09-27 04:00] VITALS: BP 155/96
[2021-09-27 06:11] LABS: BASOPHILS % (AUTO) 0.9 % (0.0-5.0); EOSINOPHILS % (AUTO) 5.7 % (0.0-8.0); HEMATOCRIT 27.7 % (42-54); LYMPHOCYTES % (AUTO) 11.9 % (21.0-51.0); MEAN CORPUSCULAR HGB CONC 30.7 g/dL (32.0-36.0); MEAN CORPUSCULAR VOLUME 110.8 fL (79-99); MONOCYTES % (AUTO) 9.2 % (3.0-13.0); NEUTROPHILS % (AUTO) 72.1 % (40.0-77.0); PLATELET COUNT (AUTO) 286 K/uL (130-400); RED CELL DISTRIBUTION WIDTH 14.6 % (11.0-15.5); WHITE BLOOD COUNT (AUTO) 4.6 K/uL (4.8-10.8)
[2021-09-27 06:36] LABS: CREATININE 1.2 mg/dL (0.5-1.5); POTASSIUM 3.8 mmol/L (3.5-5.1)
[2021-09-27] MEDS: ZOSYN 3.375GM +NS 50ML IV SCH ×3 (06:41→22:30)
[2021-09-27 08:00] VITALS: BP 144/91
[2021-09-27 08:13] LABS: MAGNESIUM 1.9 mg/dL (1.80-2.40)
[2021-09-27] MEDS: FAMOTIDINE 20MG VIAL IV SCH (09:32)
[2021-09-27] MEDS: TRAMADOL HCL 50 MG TABLET PO PRN ×2 (09:36→15:00)
[2021-09-27] MEDS: Vitamin B Complex/Vit C/Folic Acid PO SCH (09:37)
[2021-09-27] MEDS: CYCLOBENZAPRINE HCL 10 MG TABLET PO SCH ×2 (09:37→20:37)
[2021-09-27] MEDS: FERROUS SULFATE 325 MG TABLET.DR PO SCH ×3 (09:37→20:37)
[2021-09-27] MEDS: PANTOPRAZOLE 40 MG/VIAL IVP SCH ×2 (09:37→20:37)
[2021-09-27] MEDS: METOPROLOL TARTRATE 50 MG TAB PO SCH ×2 (09:37→20:37)
[2021-09-27] MEDS: 0.9%NACL 1000ML 1,000 ML IV SCH (10:40)
[2021-09-27 12:00] VITALS: BP 153/68
[2021-09-27 16:00] VITALS: BP 152/90
[2021-09-27 20:00] VITALS: BP 153/89
[2021-09-27] MEDS: VANCOMYCIN 1G/250ML KIT 250 ML IV SCH (20:37)
[2021-09-28] VITALS: BP 153/88
[2021-09-28] MEDS: 0.9%NACL 1000ML 1,000 ML IV SCH ×2 (00:13→13:43)
[2021-09-28 04:00] VITALS: BP 139/85
[2021-09-28] MEDS: ZOSYN 3.375GM +NS 50ML IV SCH ×3 (05:52→22:44)
[2021-09-28 07:39] VITALS: BP 148/101
[2021-09-28] MEDS: FERROUS SULFATE 325 MG TABLET.DR PO SCH ×3 (08:40→21:22)
[2021-09-28] MEDS: Vitamin B Complex/Vit C/Folic Acid PO SCH (08:40)
[2021-09-28] MEDS: PANTOPRAZOLE 40 MG/VIAL IVP SCH ×2 (08:40→21:21)
[2021-09-28] MEDS: CYCLOBENZAPRINE HCL 10 MG TABLET PO SCH ×2 (08:40→21:22)
[2021-09-28] MEDS: METOPROLOL TARTRATE 50 MG TAB PO SCH ×2 (08:40→21:22)
[2021-09-28] MEDS: HYDRALAZINE 20MG/ML VIAL IV PRN (08:41)
[2021-09-28 11:20] VITALS: BP 124/65
[2021-09-28] MEDS: TRAMADOL HCL 50 MG TABLET PO PRN ×2 (13:39→21:22)
[2021-09-28 15:46] VITALS: BP 118/80
[2021-09-28 19:00] VITALS: BP 145/98
[2021-09-28] MEDS: VANCOMYCIN 1G/250ML KIT 250 ML IV SCH (21:21)
[2021-09-29] VITALS (7 sets, daily range): BP systolic 121–173; BP diastolic 64–110
[2021-09-29] MEDS: 0.9%NACL 1000ML 1,000 ML IV SCH (02:40)
[2021-09-29] MEDS: ZOSYN 3.375GM +NS 50ML IV SCH ×3 (05:55→23:59)
[2021-09-29] MEDS: PANTOPRAZOLE 40 MG/VIAL IVP SCH ×2 (09:44→21:36)
[2021-09-29] MEDS: CYCLOBENZAPRINE HCL 10 MG TABLET PO SCH ×2 (09:45→21:36)
[2021-09-29] MEDS: FERROUS SULFATE 325 MG TABLET.DR PO SCH ×3 (09:46→21:36)
[2021-09-29] MEDS: Vitamin B Complex/Vit C/Folic Acid PO SCH (09:46)
[2021-09-29] MEDS: METOPROLOL TARTRATE 50 MG TAB PO SCH ×2 (09:46→21:36)
[2021-09-29] MEDS: FUROSEMIDE 20MG VIAL IV SCH ×2 (11:25→19:53)
[2021-09-29] MEDS: HYDRALAZINE 20MG/ML VIAL IV PRN (11:26)
[2021-09-29] MEDS: BUDESONIDE 0.5 MG/2 ML INH IH SCH ×2 (11:46→18:40)
[2021-09-29] MEDS: IPRATROPIUM 0.5 MG/2.5 ML INH IH SCH ×3 (11:47→23:18)
[2021-09-29] MEDS ORDERED: LEVOFLOXACIN 500 MG TABLET PO SCH (13:45)
[2021-09-29] MEDS: TRAMADOL HCL 50 MG TABLET PO PRN (16:22)
[2021-09-29] MEDS ORDERED: 0.9% NACL 250ML 250 ML ONE (21:11)
[2021-09-29] MEDS: VANCOMYCIN 1G/250ML KIT 250 ML IV SCH (21:36)
[2021-09-30 03:27] VITALS: BP 110/55
[2021-09-30] MEDS: FUROSEMIDE 20MG VIAL IV SCH (05:07)
[2021-09-30] MEDS: ZOSYN 3.375GM +NS 50ML IV SCH ×2 (05:58→14:17)
[2021-09-30] MEDS: IPRATROPIUM 0.5 MG/2.5 ML INH IH SCH ×4 (06:52→23:44)
[2021-09-30] MEDS: BUDESONIDE 0.5 MG/2 ML INH IH SCH ×2 (06:52→19:41)
[2021-09-30 07:21] LABS: BASOPHILS % (AUTO) 1.2 % (0.0-5.0); EOSINOPHILS % (AUTO) 1.7 % (0.0-8.0); LYMPHOCYTES % (AUTO) 12.7 % (21.0-51.0); MEAN CORPUSCULAR HEMOGLOBIN 33.2 pg (27.0-33.0); MEAN CORPUSCULAR HGB CONC 31.6 g/dL (32.0-36.0); MEAN CORPUSCULAR VOLUME 105.1 fL (79-99); MONOCYTES % (AUTO) 11.6 % (3.0-13.0); NEUTROPHILS % (AUTO) 72.4 % (40.0-77.0); PLATELET COUNT (AUTO) 341 K/uL (130-400); RED BLOOD CELL COUNT(AUTO) 2.95 MIL/uL (4.50-6.20); RED CELL DISTRIBUTION WIDTH 14.2 % (11.0-15.5); WHITE BLOOD COUNT (AUTO) 4.8 K/uL (4.8-10.8)
[2021-09-30 07:25] VITALS: BP 107/56
[2021-09-30 07:28] LABS: CREATININE 1.3 mg/dL (0.5-1.5); MAGNESIUM 1.5 mg/dL (1.80-2.40)
[2021-09-30] MEDS: FERROUS SULFATE 325 MG TABLET.DR PO SCH ×3 (09:35→21:49)
[2021-09-30] MEDS: PANTOPRAZOLE 40 MG/VIAL IVP SCH ×2 (09:35→19:54)
[2021-09-30] MEDS: Vitamin B Complex/Vit C/Folic Acid PO SCH (09:35)
[2021-09-30] MEDS: CYCLOBENZAPRINE HCL 10 MG TABLET PO SCH ×2 (09:35→19:55)
[2021-09-30] MEDS: METOPROLOL TARTRATE 50 MG TAB PO SCH ×2 (09:35→19:54)
[2021-09-30] MEDS ORDERED: POTASSIUM CHLORIDE 10MEQ/100ML 100 ML IV PRN (10:00)
[2021-09-30] MEDS ORDERED: POTASSIUM CHLORIDE 10% ELIXIR 20 MEQ/15 ML UDCUP PO PRN (10:00)
[2021-09-30] MEDS ORDERED: KCL 20 MEQ ERTAB PO PRN (10:00)
[2021-09-30] MEDS ORDERED: LIDOCAINE HCL-MPF 1% 2ML VIAL IV PRN (10:00)
[2021-09-30 11:33] VITALS: BP 113/71
[2021-09-30] MEDS: LEVOFLOXACIN 500 MG TABLET PO SCH (12:33)
[2021-09-30] MEDS: FLUCONAZOLE 100 MG TAB PO SCH (14:19)
[2021-09-30 15:30] VITALS: BP 139/79
[2021-09-30] MEDS: KCL 20 MEQ ERTAB PO PRN ×2 (17:10→18:45)
[2021-09-30] MEDS: ACETAMINOPHEN 325 MG TAB PO PRN (19:53)
[2021-09-30 19:57] VITALS: BP 123/77
[2021-09-30] MEDS: VANCOMYCIN 1G/250ML KIT 250 ML IV SCH (21:48)
[2021-09-30] MEDS: MAGNESIUM 2GM PREMIX 50ML 50 ML IV PRN (22:22)
[2021-09-30 23:32] VITALS: BP 120/62
[2021-10-01] MEDS: KCL 20 MEQ ERTAB PO PRN ×3 (01:01→04:50)
[2021-10-01] MEDS: ZOSYN 3.375GM +NS 50ML IV SCH ×4 (01:04→23:07)
[2021-10-01] MEDS: TRAMADOL HCL 50 MG TABLET PO PRN ×2 (01:51→12:02)
[2021-10-01] MEDS ORDERED: TRAMADOL HCL 50 MG TABLET PO PRN (02:00)
[2021-10-01 03:15] VITALS: BP 133/75
[2021-10-01 05:00] LABS: CREATININE 1.3 mg/dL (0.5-1.5); POTASSIUM 4.6 mmol/L (3.5-5.1)
[2021-10-01] MEDS: IPRATROPIUM 0.5 MG/2.5 ML INH IH SCH ×3 (06:00→18:00)
[2021-10-01] MEDS: BUDESONIDE 0.5 MG/2 ML INH IH SCH ×2 (07:09→21:00)
[2021-10-01 08:00] VITALS: BP 141/83
[2021-10-01] MEDS: METOPROLOL TARTRATE 50 MG TAB PO SCH ×2 (10:10→20:21)
[2021-10-01] MEDS: PANTOPRAZOLE 40 MG/VIAL IVP SCH ×2 (10:11→20:21)
[2021-10-01] MEDS: CYCLOBENZAPRINE HCL 10 MG TABLET PO SCH ×2 (10:11→20:21)
[2021-10-01] MEDS: Vitamin B Complex/Vit C/Folic Acid PO SCH (10:11)
[2021-10-01] MEDS: FERROUS SULFATE 325 MG TABLET.DR PO SCH ×3 (10:44→20:21)
[2021-10-01 12:00] VITALS: BP 126/81
[2021-10-01] MEDS: LEVOFLOXACIN 500 MG TABLET PO SCH (12:41)
[2021-10-01] MEDS: FLUCONAZOLE 100 MG TAB PO SCH (14:17)
[2021-10-01 16:00] VITALS: BP 171/90
[2021-10-01 20:16] VITALS: BP 153/81
[2021-10-01] MEDS: VANCOMYCIN 1G/250ML KIT 250 ML IV SCH (21:50)
[2021-10-02] VITALS (23 sets, daily range): BP systolic 104–177; BP diastolic 59–104
[2021-10-02] MEDS: TRAMADOL HCL 50 MG TABLET PO PRN (04:21)
[2021-10-02 06:09] LABS: BASOPHILS % (AUTO) 1.5 % (0.0-5.0); HEMATOCRIT 27.4 % (42-54); MEAN CORPUSCULAR HEMOGLOBIN 33.5 pg (27.0-33.0); MEAN CORPUSCULAR HGB CONC 31.8 g/dL (32.0-36.0); MEAN CORPUSCULAR VOLUME 105.4 fL (79-99); MONOCYTES % (AUTO) 10.5 % (3.0-13.0); NEUTROPHILS % (AUTO) 65.7 % (40.0-77.0); PLATELET COUNT (AUTO) 374 K/uL (130-400); RED CELL DISTRIBUTION WIDTH 14.2 % (11.0-15.5)
[2021-10-02 07:03] LABS: CARBON DIOXIDE 26 mmol/L (21-32); CHLORIDE 105 mmol/L (101-111); CREATININE 1.4 mg/dL (0.5-1.5); GLOMERULAR FILTR. RATE CALC 53 mL/min (>60); GLUCOSE,RANDOM 112 mg/dL (70-105); POTASSIUM 3.5 mmol/L (3.5-5.1); SODIUM SERUM 137 mmol/L (136-145); UREA NITROGEN, BLOOD 7 mg/dL (7-18)
[2021-10-02] MEDS: ZOSYN 3.375GM +NS 50ML IV SCH ×3 (07:22→21:53)
[2021-10-02 07:49] LABS: ERYTHROCYTE SEDIMENTATION RATE 48 MM/HR (0-20)
[2021-10-02] MEDS ORDERED: ROPIVACAINE 0.5% 5MG/ML 30ML IJ ONE ×2 (08:27→09:54)
[2021-10-02] MEDS ORDERED: DEXAMETHASONE SOD PHOSPHATE 10MG/ML 1ML VIAL ONE (08:27)
[2021-10-02] MEDS ORDERED: MIDAZOLAM HCL 1 MG/ML 2ML VIAL ONE ×2 (09:51→10:00)
[2021-10-02] MEDS ORDERED: PROPOFOL 10 MG/ML 20ML VIAL IV ONE (09:51)
[2021-10-02] MEDS ORDERED: GLYCOPYRROLATE 1 MG/5 ML SYRINGE ONE (09:52)
[2021-10-02] MEDS ORDERED: KETAMINE 50MG/ML SYRINGE 50 MG/ML DISP.SYRIN IV ONE (09:53)
[2021-10-02] MEDS: PANTOPRAZOLE 40 MG/VIAL IVP SCH ×2 (12:17→21:53)
[2021-10-02] MEDS: METOPROLOL TARTRATE 50 MG TAB PO SCH ×2 (12:18→21:53)
[2021-10-02] MEDS: CYCLOBENZAPRINE HCL 10 MG TABLET PO SCH ×2 (12:18→21:53)
[2021-10-02] MEDS: FERROUS SULFATE 325 MG TABLET.DR PO SCH ×3 (12:18→21:53)
[2021-10-02] MEDS: LEVOFLOXACIN 500 MG TABLET PO SCH (12:18)
[2021-10-02] MEDS: Vitamin B Complex/Vit C/Folic Acid PO SCH (12:18)
[2021-10-02] MEDS: HYDRALAZINE 20MG/ML VIAL IV PRN (12:18)
[2021-10-02] MEDS: FLUCONAZOLE 100 MG TAB PO SCH (13:56)
[2021-10-02] MEDS: IPRATROPIUM 0.5 MG/2.5 ML INH IH SCH ×3 (18:59→23:32)
[2021-10-02] MEDS: BUDESONIDE 0.5 MG/2 ML INH IH SCH (19:06)
[2021-10-02] MEDS: VANCOMYCIN 750MG VIAL IVPB SCH (21:52)
[2021-10-02] MEDS: 0.9% NACL 250ML 250 ML IV SCH (21:53)
[2021-10-03] VITALS: BP 108/64
[2021-10-03 04:00] VITALS: BP_SYST 142; BP_SYST 152; BP_DIAS 81; BP_DIAS 94
[2021-10-03] MEDS: ZOSYN 3.375GM +NS 50ML IV SCH ×3 (05:08→20:49)
[2021-10-03 05:11] LABS: BASOPHILS % (AUTO) 0.1 % (0.0-5.0); EOSINOPHILS % (AUTO) 2.1 % (0.0-8.0); HEMATOCRIT 26.3 % (42-54); LYMPHOCYTES % (AUTO) 4.6 % (21.0-51.0); MEAN CORPUSCULAR HEMOGLOBIN 33.5 pg (27.0-33.0); MEAN CORPUSCULAR HGB CONC 32.3 g/dL (32.0-36.0); MEAN CORPUSCULAR VOLUME 103.5 fL (79-99); MONOCYTES % (AUTO) 7.7 % (3.0-13.0); NEUTROPHILS % (AUTO) 85.4 % (40.0-77.0); PLATELET COUNT (AUTO) 410 K/uL (130-400); RED BLOOD CELL COUNT(AUTO) 2.54 MIL/uL (4.50-6.20); RED CELL DISTRIBUTION WIDTH 14.3 % (11.0-15.5); WHITE BLOOD COUNT (AUTO) 6.8 K/uL (4.8-10.8)
[2021-10-03 05:22] LABS: CREATININE 1.2 mg/dL (0.5-1.5); POTASSIUM 3.7 mmol/L (3.5-5.1)
[2021-10-03] MEDS: IPRATROPIUM 0.5 MG/2.5 ML INH IH SCH ×4 (06:00→23:10)
[2021-10-03] MEDS: BUDESONIDE 0.5 MG/2 ML INH IH SCH ×2 (07:31→18:54)
[2021-10-03 08:00] VITALS: BP 112/62
[2021-10-03] MEDS: FERROUS SULFATE 325 MG TABLET.DR PO SCH ×3 (08:16→20:48)
[2021-10-03] MEDS: Vitamin B Complex/Vit C/Folic Acid PO SCH (08:16)
[2021-10-03] MEDS: CYCLOBENZAPRINE HCL 10 MG TABLET PO SCH ×2 (08:16→20:48)
[2021-10-03] MEDS: METOPROLOL TARTRATE 50 MG TAB PO SCH ×2 (08:16→20:48)
[2021-10-03] MEDS: PANTOPRAZOLE 40 MG/VIAL IVP SCH ×2 (08:16→20:48)
[2021-10-03] MEDS: TRAMADOL HCL 50 MG TABLET PO PRN (11:30)
[2021-10-03 12:00] VITALS: BP 135/75
[2021-10-03] MEDS ORDERED: KETOROLAC 15MG/ML VIAL (15MG/ML) IV PRN (13:00)
[2021-10-03] MEDS ORDERED: KETOROLAC 15MG/ML VIAL (15MG/ML) ONE (13:06)
[2021-10-03] MEDS: LEVOFLOXACIN 500 MG TABLET PO SCH (13:11)
[2021-10-03] MEDS: FLUCONAZOLE 100 MG TAB PO SCH (13:11)
[2021-10-03] MEDS ORDERED: HYDROCODONE/ACETAMINOPHEN 10/325 MG TAB ONE (13:36)
[2021-10-03] MEDS ORDERED: HYDROCODONE/ACETAMINOPHEN 10/325 MG TAB PO PRN (14:00)
[2021-10-03 16:00] VITALS: BP 114/70
[2021-10-03] MEDS ORDERED: TRAMADOL HCL 50 MG TABLET PO PRN (17:00)
[2021-10-03 20:00] VITALS: BP 139/74
[2021-10-03] MEDS: VANCOMYCIN 750MG VIAL IVPB SCH (20:48)
[2021-10-03] MEDS: 0.9% NACL 250ML 250 ML IV SCH (20:49)
[2021-10-04] VITALS: BP 133/67
[2021-10-04 04:00] VITALS: BP 138/69
[2021-10-04 04:34] LABS: HEMATOCRIT 24.8 % (42-54); LYMPHOCYTES % (AUTO) 7.5 % (21.0-51.0); MEAN CORPUSCULAR HEMOGLOBIN 32.4 pg (27.0-33.0); MEAN CORPUSCULAR VOLUME 104.2 fL (79-99); MONOCYTES % (AUTO) 7.2 % (3.0-13.0); NEUTROPHILS % (AUTO) 84.9 % (40.0-77.0); PLATELET COUNT (AUTO) 393 K/uL (130-400); RED BLOOD CELL COUNT(AUTO) 2.38 MIL/uL (4.50-6.20); RED CELL DISTRIBUTION WIDTH 14.6 % (11.0-15.5); WHITE BLOOD COUNT (AUTO) 7.5 K/uL (4.8-10.8)
[2021-10-04 04:43] LABS: CREATININE 1.7 mg/dL (0.5-1.5)
[2021-10-04] MEDS: ZOSYN 3.375GM +NS 50ML IV SCH (06:28)
[2021-10-04] MEDS: BUDESONIDE 0.5 MG/2 ML INH IH SCH ×2 (06:41→19:17)
[2021-10-04] MEDS: IPRATROPIUM 0.5 MG/2.5 ML INH IH SCH ×4 (06:41→23:52)
[2021-10-04 07:00] VITALS: BP 156/84
[2021-10-04] MEDS: CYCLOBENZAPRINE HCL 10 MG TABLET PO SCH ×2 (09:16→21:20)
[2021-10-04] MEDS: PANTOPRAZOLE 40 MG/VIAL IVP SCH ×2 (09:16→21:20)
[2021-10-04] MEDS: METOPROLOL TARTRATE 50 MG TAB PO SCH ×2 (09:16→21:20)
[2021-10-04] MEDS: FERROUS SULFATE 325 MG TABLET.DR PO SCH ×3 (09:16→21:20)
[2021-10-04] MEDS: Vitamin B Complex/Vit C/Folic Acid PO SCH (09:16)
[2021-10-04 11:00] VITALS: BP 168/8
[2021-10-04 15:00] VITALS: BP 131/66
[2021-10-04] MEDS: LEVOFLOXACIN 500 MG TABLET PO SCH (15:21)
[2021-10-04 19:55] VITALS: BP 154/84
[2021-10-05 00:40] VITALS: BP 154/81
[2021-10-05 04:29] VITALS: BP 152/88
[2021-10-05] MEDS: BUDESONIDE 0.5 MG/2 ML INH IH SCH (06:30)
[2021-10-05] MEDS: IPRATROPIUM 0.5 MG/2.5 ML INH IH SCH ×2 (06:30→11:00)
[2021-10-05 08:00] VITALS: BP 172/92
[2021-10-05] MEDS: CYCLOBENZAPRINE HCL 10 MG TABLET PO SCH (08:18)
[2021-10-05] MEDS: Vitamin B Complex/Vit C/Folic Acid PO SCH (08:18)
[2021-10-05] MEDS: PANTOPRAZOLE 40 MG/VIAL IVP SCH (08:19)
[2021-10-05] MEDS: FERROUS SULFATE 325 MG TABLET.DR PO SCH (08:19)
[2021-10-05] MEDS: METOPROLOL TARTRATE 50 MG TAB PO SCH (08:19)
[2021-10-05 08:54] LABS: BASOPHILS % (AUTO) 0.5 % (0.0-5.0); EOSINOPHILS % (AUTO) 1.1 % (0.0-8.0); HEMATOCRIT 24.8 % (42-54); LYMPHOCYTES % (AUTO) 12.5 % (21.0-51.0); MEAN CORPUSCULAR HEMOGLOBIN 33.9 pg (27.0-33.0); MEAN CORPUSCULAR HGB CONC 31.9 g/dL (32.0-36.0); MEAN CORPUSCULAR VOLUME 106.4 fL (79-99); MONOCYTES % (AUTO) 10.6 % (3.0-13.0); PLATELET COUNT (AUTO) 348 K/uL (130-400); RED BLOOD CELL COUNT(AUTO) 2.33 MIL/uL (4.50-6.20); RED CELL DISTRIBUTION WIDTH 14.6 % (11.0-15.5); WHITE BLOOD COUNT (AUTO) 6.4 K/uL (4.8-10.8)
[2021-10-05] MEDS ORDERED: GABAPENTIN 300 MG CAPSULE PO SCH (09:00)
[2021-10-05] MEDS ORDERED: EPOETIN ALFA-EPBX (NON-ESRD) 10,000 UNIT/ML VIAL SQ SCH (09:00)
[2021-10-05] MEDS ORDERED: IRON SUCROSE COMPLEX 500 MG in 0.9% NACL 250ML 250 ML IV SCH (09:00)
[2021-10-05 09:32] LABS: CARBON DIOXIDE 25 mmol/L (21-32); CHLORIDE 102 mmol/L (101-111); CREATININE 1.2 mg/dL (0.5-1.5); GLOMERULAR FILTR. RATE CALC 63 mL/min (>60); GLUCOSE,RANDOM 113 mg/dL (70-105); POTASSIUM 3.6 mmol/L (3.5-5.1); SODIUM SERUM 134 mmol/L (136-145); THYROID STIMULATING HORMONE 5.49 uIU/mL (0.36-3.74); UREA NITROGEN, BLOOD 14 mg/dL (7-18)
[2021-10-05 09:49] LABS: % IRON SATURATION 11.2 % (30-44)
[2021-10-05] MEDS ORDERED: COMPOUND IV REFRIGERATED 1 EACH IVSOLN MISC PRN (10:30)
[2021-10-05] MEDS ORDERED: COMPOUND IV MISC 1 EACH IVSOLN MISC PRN (10:30)
[2021-10-05 12:00] VITALS: BP 148/86
[2021-10-05] MEDS: LEVOFLOXACIN 500 MG TABLET PO SCH (13:44)
== END 2021-10-05 16:30 | DRG 475 ==
LOC: EDH 13:58 → EDHIP 15:29 → 3CH 18:38
PROVIDERS: ADMIT Internal Medicine; ATTEND Internal Medicine
PROC: 0Y6J0Z1 Detachment at Left Lower Leg, High, Open Approach (ICD-10-PCS; principal; 2021-10-02 10:38)
DX: T87.44 Infection of amputation stump, left lower extremity (principal); L03.116 Cellulitis of left lower limb; E87.1 Hypo-osmolality and hyponatremia; I50.32 Chronic diastolic (congestive) heart failure; M86.8X7 Other osteomyelitis, ankle and foot; E11.52 Type 2 diabetes mellitus with diabetic peripheral angiopathy with gangrene; I70.92 Chronic total occlusion of artery of the extremities; E11.621 Type 2 diabetes mellitus with foot ulcer; E87.6 Hypokalemia; L97.529 Non-pressure chronic ulcer of other part of left foot with unspecified severity; F17.210 Nicotine dependence, cigarettes, uncomplicated; E78.5 Hyperlipidemia, unspecified; E83.42 Hypomagnesemia; I25.10 Atherosclerotic heart disease of native coronary artery without angina pectoris; Z20.822 Contact with and (suspected) exposure to COVID-19; M19.90 Unspecified osteoarthritis, unspecified site; M06.9 Rheumatoid arthritis, unspecified; J44.9 Chronic obstructive pulmonary disease, unspecified; I48.0 Paroxysmal atrial fibrillation; I11.0 Hypertensive heart disease with heart failure; E87.5 Hyperkalemia; G54.6 Phantom limb syndrome with pain; G89.29 Other chronic pain; N40.0 Benign prostatic hyperplasia without lower urinary tract symptoms; D64.9 Anemia, unspecified; R53.81 Other malaise; R59.0 Localized enlarged lymph nodes; E11.69 Type 2 diabetes mellitus with other specified complication; Y83.5 Amputation of limb(s) as the cause of abnormal reaction of the patient, or of later complication, without mention of misadventure at the time of the procedure; Y92.89 Other specified places as the place of occurrence of the external cause; Z87.11 Personal history of peptic ulcer disease; Z91.19 Patient's noncompliance with other medical treatment and regimen; Z79.01 Long term (current) use of anticoagulants; Z95.5 Presence of coronary angioplasty implant and graft; Z91.14 Patient's other noncompliance with medication regimen; Z82.3 Family history of stroke; Z82.49 Family history of ischemic heart disease and other diseases of the circulatory system
CPT/HCPCS: 36415; 71045; 73630; 75635; 80048; 80053; 80202; 81001; 82270; 82607; 82728; 82746; 83540; 83550; 83605; 83735; 84132; 84145; 84443; 84484; 85014; 85018; 85025; 85045; 85610; 85651; 85730; 86140; 86156; 86850; 86870; 86900; 86901; 86922; 87040; 87070; 87076; 87077; 87186; 87635; 88307; 88311; 93005; 93926; 94640; 94664; 97039; C9113; G0378; J0360; J1100; J1650; J1756; J1885; J1940; J2250; J2543; J2704; J2795; J3370; J3475; J3490; J7030; J7050; Q9967

== ENCOUNTER 2022-02-26 10:35 | Inpatient (IN) | payer MEDICARE ==
[~2022-02-26] VITALS: Ht 177.8 cm; Wt 67.4 kg
[~2022-02-26 10:35] MED LIST changes: -AEC81 PO; -ATOR20TA65 PO; -CLOP75TA14 PO; -CYCL10TA16 PO; -FERR-72 PO; +FOLI0.8T22 PO; -FOLI1TAB85 PO; -FURO40TA7 PO; +GABA300C PO; -IPRNEB IH; -LISI20TA24 PO; +PANT40TA PO; -PANT40TA54 PO; -PRED20B PO; -RIVA20TA PO; -TRAM100T40 PO; -VITAD50000 PO
[2022-02-26 11:25] LABS: EOSINOPHILS % (AUTO) 0.4 % (0.0-8.0); HEMATOCRIT 45.6 % (42-54); LYMPHOCYTES % (AUTO) 13.9 % (21.0-51.0); MEAN CORPUSCULAR HEMOGLOBIN 31.3 pg (27.0-33.0); MEAN CORPUSCULAR HGB CONC 33.8 g/dL (32.0-36.0); MEAN CORPUSCULAR VOLUME 92.7 fL (79-99); MONOCYTES % (AUTO) 11.2 % (3.0-13.0); NEUTROPHILS % (AUTO) 73.1 % (40.0-77.0); PLATELET COUNT (AUTO) 238 K/uL (130-400); RED BLOOD CELL COUNT(AUTO) 4.92 MIL/uL (4.50-6.20); WHITE BLOOD COUNT (AUTO) 4.9 K/uL (4.8-10.8)
[2022-02-26 11:30] LABS: CREATININE 1.1 mg/dL (0.5-1.5)
[2022-02-26 11:33] LABS: POTASSIUM 2.9 mmol/L (3.5-5.1)
[2022-02-26 11:54] LABS: INR 0.97 (0.85-1.15); PROTHROMBIN TIME 10.6 SEC (9.6-11.6)
[2022-02-26 11:55] LABS: PARTIAL THROMBOPLASTIN TIME 34.2 SEC (26.3-35.5)
[2022-02-26] MEDS ORDERED: POTASSIUM CHLORIDE 10% ELIXIR 20 MEQ/15 ML UDCUP PO SCH (13:00)
[2022-02-26] MEDS ORDERED: HEPARIN 25,000 UNITS/250ML D5W 250 ML IV ONE (13:07)
[2022-02-26] MEDS ORDERED: HEPARIN 5,000 UNIT VIAL ONE (13:21)
[2022-02-26] MEDS: HEPARIN 25,000 UNITS/250ML D5W 250 ML IV SCH ×2 (13:39→22:02)
[2022-02-26] MEDS ORDERED: ONDANSETRON 4MG INJ ONE (13:43)
[2022-02-26 13:54] LABS: ALANINE AMINOTRANSFERASE 56 U/L (12-78); ALBUMIN 3.4 g/dL (3.5-5.0); ASPARTATE AMINOTRANSFERASE 144 U/L (10-37); BILIRUBIN,DIRECT 0.3 mg/dL (0.0-0.3); BILIRUBIN,TOTAL 0.8 mg/dL (0.2-1.0); CREATINE KINASE, TOTAL 47 U/L (21-232); TOTAL PROTEIN, SERUM 7.2 g/dL (6.0-8.3)
[2022-02-26 13:55] LABS: CRP QUANTITATIVE < 2.00 mg/L (0.00-9.0)
[2022-02-26] MEDS ORDERED: POTASSIUM CHLORIDE 20MEQ/100ML 100 ML IV PRN ×2 (14:00→17:30)
[2022-02-26] MEDS ORDERED: TRAMADOL /APAP 37.5MG/325MG TAB PO PRN (14:00)
[2022-02-26] MEDS ORDERED: HYDRALAZINE 20MG/ML VIAL IV PRN (14:00)
[2022-02-26] MEDS ORDERED: PANTOPRAZOLE 40 MG/VIAL IVP ONE (14:00)
[2022-02-26] MEDS ORDERED: IPRATROPIUM 0.5 MG/2.5 ML INH IH PRN (14:00)
[2022-02-26] MEDS ORDERED: THIAMINE HCL 100 MG/ML 2ML VIAL IVP SCH (14:00)
[2022-02-26] MEDS ORDERED: ONDANSETRON 4MG INJ IVP PRN (14:00)
[2022-02-26] MEDS ORDERED: AMLODIPINE 5 MG TAB PO ONE (14:00)
[2022-02-26 14:02] LABS: B-TYPE NATRIURETIC PEPTIDE 87 pg/mL (0-100)
[2022-02-26] MEDS: MAGNESIUM 2GM PREMIX 50ML 50 ML IV SCH (14:38)
[2022-02-26 14:52] LABS: INFLUENZA TYPE A NEGATIVE FOR TYPE A (NEG); INFLUENZA TYPE B NEGATIVE FOR TYPE B (NEG)
[2022-02-26 14:57] LABS: ERYTHROCYTE SEDIMENTATION RATE 2 MM/HR (0-20)
[2022-02-26] MEDS ORDERED: ACETAMINOPHEN 325 MG TAB PO PRN (15:00)
[2022-02-26] MEDS ORDERED: PHARMACY COMMUNICATION MISC PRN (15:00)
[2022-02-26] MEDS ORDERED: CHLORDIAZEPOXIDE HCL 25 MG CAP PO PRN (15:00)
[2022-02-26] MEDS ORDERED: LORAZEPAM 2 MG/ML 1 ML VIAL IVP PRN (15:00)
[2022-02-26 15:23] VITALS: BP 150/93
[2022-02-26] MEDS ORDERED: TRAM50TA4 PO (15:39)
[2022-02-26] MEDS ORDERED: FERS325 PO (15:39)
[2022-02-26] MEDS ORDERED: MAGNESIUM 2GM PREMIX 50ML 50 ML IV PRN (17:30)
[2022-02-26] MEDS ORDERED: KCL 20 MEQ ERTAB PO PRN (17:30)
[2022-02-26] MEDS ORDERED: ASPIRIN 81 MG EC TAB PO ONE (17:30)
[2022-02-26] MEDS: BUDESONIDE 0.5 MG/2 ML INH IH SCH (18:30)
[2022-02-26 20:10] VITALS: BP 167/92
[2022-02-26 20:26] LABS: POTASSIUM 3.1 mmol/L (3.5-5.1)
[2022-02-26] MEDS ORDERED: IOHEXOL-350 50ML VIAL IV ONE (20:28)
[2022-02-26] MEDS ORDERED: IOHEXOL-350 75 ML VIAL IV ONE (20:28)
[2022-02-26] MEDS: METOPROLOL TARTRATE 50 MG TAB PO SCH (20:36)
[2022-02-26] MEDS ORDERED: KCL 20 MEQ ERTAB PO ONE (21:00)
[2022-02-26] MEDS: FERROUS SULFATE 325 MG TABLET.DR PO SCH (21:07)
[2022-02-26 23:52] VITALS: BP 180/108
[2022-02-27] VITALS (7 sets, daily range): BP systolic 133–161; BP diastolic 77–95
[2022-02-27 04:09] LABS: BASOPHILS % (AUTO) 1.1 % (0.0-5.0); HEMATOCRIT 40.1 % (42-54); LYMPHOCYTES % (AUTO) 20.6 % (21.0-51.0); MEAN CORPUSCULAR HEMOGLOBIN 30.7 pg (27.0-33.0); MEAN CORPUSCULAR HGB CONC 32.9 g/dL (32.0-36.0); MEAN CORPUSCULAR VOLUME 93.3 fL (79-99); NEUTROPHILS % (AUTO) 62.1 % (40.0-77.0); PLATELET COUNT (AUTO) 204 K/uL (130-400); RED CELL DISTRIBUTION WIDTH 22.6 % (11.0-15.5); WHITE BLOOD COUNT (AUTO) 4.6 K/uL (4.8-10.8)
[2022-02-27 04:25] LABS: MAGNESIUM 1.4 mg/dL (1.80-2.40); POTASSIUM 3.3 mmol/L (3.5-5.1)
[2022-02-27] MEDS: POTASSIUM CHLORIDE 10% ELIXIR 20 MEQ/15 ML UDCUP PO PRN ×2 (04:51→06:25)
[2022-02-27] MEDS: MAGNESIUM 2GM PREMIX 50ML 50 ML IV SCH (04:52)
[2022-02-27 05:25] LABS: AMPHET/METH SCREEN,URINE NEGATIVE (NEGATIVE); BARBITURATE SCREEN, URINE NEGATIVE (NEGATIVE); BENZODIAZEPINES SCREEN,URINE NEGATIVE (NEGATIVE); CANNABINOID SCREEN,URINE POSITIVE (NEGATIVE); COCAINE SCREEN,URINE NEGATIVE (NEGATIVE); OPIATE SCREEN,URINE NEGATIVE (NEGATIVE); PHENCYCLIDINE SCREEN,URINE NEGATIVE (NEGATIVE)
[2022-02-27] MEDS: HEPARIN 25,000 UNITS/250ML D5W 250 ML IV SCH ×2 (05:50→14:38)
[2022-02-27] MEDS: BUDESONIDE 0.5 MG/2 ML INH IH SCH ×2 (06:45→18:34)
[2022-02-27] MEDS: ASPIRIN 81 MG EC TAB PO SCH (08:31)
[2022-02-27] MEDS: Vitamin B Complex/Vit C/Folic Acid PO SCH (08:31)
[2022-02-27] MEDS: AMLODIPINE 5 MG TAB PO SCH (08:31)
[2022-02-27] MEDS: PANTOPRAZOLE 40 MG/VIAL IVP SCH (08:32)
[2022-02-27] MEDS: METOPROLOL TARTRATE 50 MG TAB PO SCH ×2 (08:32→20:22)
[2022-02-27] MEDS: FERROUS SULFATE 325 MG TABLET.DR PO SCH ×3 (08:34→20:22)
[2022-02-27] MEDS ORDERED: SODIUM CHLORIDE 3% FOR INHALATION 4 ML/AMP VIAL.NEB IH ONE (18:30)
[2022-02-27] MEDS: APIXABAN 2.5 MG TABLET PO SCH (20:22)
[2022-02-28 04:46] VITALS: BP 163/81
[2022-02-28] MEDS: BUDESONIDE 0.5 MG/2 ML INH IH SCH (06:45)
[2022-02-28 08:00] VITALS: BP 132/79
[2022-02-28] MEDS: FERROUS SULFATE 325 MG TABLET.DR PO SCH (08:03)
[2022-02-28] MEDS: PANTOPRAZOLE 40 MG/VIAL IVP SCH (08:03)
[2022-02-28] MEDS: Vitamin B Complex/Vit C/Folic Acid PO SCH (08:04)
[2022-02-28] MEDS: APIXABAN 2.5 MG TABLET PO SCH (08:05)
[2022-02-28] MEDS: ASPIRIN 81 MG EC TAB PO SCH (08:05)
[2022-02-28] MEDS: METOPROLOL TARTRATE 50 MG TAB PO SCH (08:06)
[2022-02-28] MEDS: AMLODIPINE 5 MG TAB PO SCH (08:06)
[2022-02-28] MEDS ORDERED: APIX2.5T PO (08:33)
== END 2022-02-28 12:00 | disposition home health service (06) | DRG 315 ==
LOC: EDH 10:35 → EDHIP 13:50 → 2DH 16:08
PROVIDERS: ADMIT Internal Medicine; ATTEND Internal Medicine
DX: T82.868A Thrombosis due to vascular prosthetic devices, implants and grafts, initial encounter (principal); I24.8 Other forms of acute ischemic heart disease; E78.5 Hyperlipidemia, unspecified; E83.42 Hypomagnesemia; E87.6 Hypokalemia; F17.210 Nicotine dependence, cigarettes, uncomplicated; I10 Essential (primary) hypertension; I16.0 Hypertensive urgency; I25.10 Atherosclerotic heart disease of native coronary artery without angina pectoris; I48.0 Paroxysmal atrial fibrillation; J44.9 Chronic obstructive pulmonary disease, unspecified; I73.9 Peripheral vascular disease, unspecified; F10.10 Alcohol abuse, uncomplicated; F12.90 Cannabis use, unspecified, uncomplicated; Y83.2 Surgical operation with anastomosis, bypass or graft as the cause of abnormal reaction of the patient, or of later complication, without mention of misadventure at the time of the procedure; Z89.512 Acquired absence of left leg below knee; Y92.89 Other specified places as the place of occurrence of the external cause; Z63.4 Disappearance and death of family member; Z82.49 Family history of ischemic heart disease and other diseases of the circulatory system; Z99.81 Dependence on supplemental oxygen
CPT/HCPCS: 36415; 70450; 71045; 74018; 75635; 80048; 80076; 80305; 82550; 82948; 83735; 83874; 83880; 84145; 84484; 85025; 85610; 85651; 85730; 86140; 87635; 87804; 93005; 93926; 93971; 94640; 94664; C9113; G0378; J1644; J2405; J3411; J3475; J3480; Q9967

== ENCOUNTER 2022-05-25 13:56 | Emergency (ER) | payer MEDICARE ==
[~2022-05-25] VITALS: Ht 177.8 cm; Wt 72.6 kg
[~2022-05-25 13:56] MED LIST changes: +APIX2.5T PO; +FERS325 PO; -FOLI0.8T22 PO; -GABA300C PO; +TRAM50TA4 PO
[2022-05-25 14:00] VITALS: BP 142/85
[2022-05-25] MEDS ORDERED: ORPHENADRINE CITRATE 30 MG/ML ML IVP ONE (14:30)
[2022-05-25] MEDS ORDERED: KETOROLAC 30MG VIAL (30MG/ML) IVP ONE (14:30)
[2022-05-25] MEDS ORDERED: CYCL10TA16 PO (14:39)
[2022-05-25] MEDS ORDERED: ACET-2247 PO (14:39)
== END 2022-05-25 15:11 | disposition home or self-care (01) ==
LOC: EDH 13:56
DX: M54.50 Low back pain, unspecified (principal); G89.29 Other chronic pain; I10 Essential (primary) hypertension; F17.200 Nicotine dependence, unspecified, uncomplicated; Z79.01 Long term (current) use of anticoagulants; Z79.1 Long term (current) use of non-steroidal anti-inflammatories (NSAID)
CPT/HCPCS: 99284; 96374; 96375; J1885; J2360

== ENCOUNTER 2022-06-13 16:04 | Inpatient (IN) | payer MEDICARE ==
[~2022-06-13] VITALS: Ht 172.7 cm; Wt 68.9 kg
[~2022-06-13 16:04] MED LIST changes: +ACET-2247 PO; +ASCO500T20 PO; +ATOR40TA69 PO; +CYCL10TA16 PO; +FURO20TA4 PO; +GABA300C PO; +LEVO25TA9 PO; +POLY17PO4 PO
[2022-06-13 16:58] LABS: BASOPHILS % (AUTO) 0.3 % (0.0-5.0); EOSINOPHILS % (AUTO) 0.7 % (0.0-8.0); HEMATOCRIT 30.2 % (42-54); LYMPHOCYTES % (AUTO) 14.6 % (21.0-51.0); MEAN CORPUSCULAR HEMOGLOBIN 34.3 pg (27.0-33.0); MEAN CORPUSCULAR HGB CONC 34.4 g/dL (32.0-36.0); MEAN CORPUSCULAR VOLUME 99.7 fL (79-99); MONOCYTES % (AUTO) 8.3 % (3.0-13.0); NEUTROPHILS % (AUTO) 75.8 % (40.0-77.0); PLATELET COUNT (AUTO) 544 K/uL (130-400); RED BLOOD CELL COUNT(AUTO) 3.03 MIL/uL (4.50-6.20); RED CELL DISTRIBUTION WIDTH 14.1 % (11.0-15.5)
[2022-06-13] MEDS ORDERED: KETOROLAC 30MG VIAL (30MG/ML) IVP ONE (17:00)
[2022-06-13 17:05] LABS: CREATININE 1.2 mg/dL (0.5-1.5); POTASSIUM 3.8 mmol/L (3.5-5.1)
[2022-06-13 17:12] LABS: ALBUMIN 2.5 g/dL (3.5-5.0); CRP QUANTITATIVE 32.6 mg/L (0.00-9.0); TOTAL PROTEIN, SERUM 6.6 g/dL (6.0-8.3)
[2022-06-13 17:21] LABS: B-TYPE NATRIURETIC PEPTIDE 445 pg/mL (0-100)
[2022-06-13] MEDS ORDERED: HYDRALAZINE 20MG/ML VIAL IV PRN (19:00)
[2022-06-13] MEDS ORDERED: CLONIDINE HCL 0.1 MG TABLET PO PRN (19:00)
[2022-06-13] MEDS ORDERED: TEMAZEPAM 15 MG CAPSULE PO PRN (19:00)
[2022-06-13] MEDS ORDERED: ACETAMINOPHEN 650 MG SUPPOSITORY RC PRN (19:00)
[2022-06-13] MEDS ORDERED: DOCUSATE SODIUM 100 MG CAP PO PRN (19:00)
[2022-06-13] MEDS ORDERED: TRAMADOL HCL 50 MG TABLET PO PRN (19:00)
[2022-06-13] MEDS ORDERED: ACETAMINOPHEN 325 MG TAB PO PRN (19:00)
[2022-06-13] MEDS ORDERED: LABETALOL 20MG SYG IV PRN (19:00)
[2022-06-13] MEDS ORDERED: LACTULOSE 20 GM/30 ML UDCUP PO PRN (19:00)
[2022-06-13] MEDS ORDERED: ONDANSETRON 4MG INJ IVP PRN (19:00)
[2022-06-13] MEDS: LACTATED RINGERS 1000ML 1,000 ML IV SCH (19:05)
[2022-06-13] MEDS ORDERED: DEXTROSE 50%-WATER 50 ML DISP.SYRIN IV PRN (19:30)
[2022-06-13] MEDS ORDERED: POTASSIUM CHLORIDE 10% ELIXIR 20 MEQ/15 ML UDCUP PO PRN (19:30)
[2022-06-13] MEDS ORDERED: GLUCAGON 1MG KIT 1 MG ML IM PRN (19:30)
[2022-06-13] MEDS ORDERED: MAGNESIUM 2GM PREMIX 50ML 50 ML IV PRN (19:30)
[2022-06-13] MEDS ORDERED: POTASSIUM CHLORIDE 20MEQ/100ML 100 ML IV PRN (19:30)
[2022-06-13] MEDS: NICOTINE 14 MG/ 24 HR PATCH TD SCH (20:10)
[2022-06-13] MEDS: INSULIN HUMULIN R 100 UNIT/ML 3ML SQ SCH (20:23)
[2022-06-13] MEDS: HYDROMORPHONE 1 MG INJ IVP PRN (20:47)
[2022-06-13] MEDS: GABAPENTIN 300 MG CAPSULE PO SCH (20:47)
[2022-06-13] MEDS: ATORVASTATIN 40 MG TABLET PO SCH (20:47)
[2022-06-13] MEDS: PANTOPRAZOLE 40 MG/VIAL IVP SCH (20:47)
[2022-06-14] MEDS: NICOTINE 14 MG/ 24 HR PATCH TD SCH (02:37)
[2022-06-14 04:16] LABS: BASOPHILS % (AUTO) 1.3 % (0.0-5.0); EOSINOPHILS % (AUTO) 1.7 % (0.0-8.0); HEMATOCRIT 29.2 % (42-54); LYMPHOCYTES % (AUTO) 20.6 % (21.0-51.0); MEAN CORPUSCULAR HEMOGLOBIN 34.4 pg (27.0-33.0); MEAN CORPUSCULAR HGB CONC 33.6 g/dL (32.0-36.0); MEAN CORPUSCULAR VOLUME 102.5 fL (79-99); MONOCYTES % (AUTO) 12.5 % (3.0-13.0); NEUTROPHILS % (AUTO) 63.5 % (40.0-77.0); PLATELET COUNT (AUTO) 469 K/uL (130-400); RED BLOOD CELL COUNT(AUTO) 2.85 MIL/uL (4.50-6.20); RED CELL DISTRIBUTION WIDTH 14.1 % (11.0-15.5); WHITE BLOOD COUNT (AUTO) 4.8 K/uL (4.8-10.8)
[2022-06-14 04:25] LABS: INR 0.94 (0.85-1.15); PROTHROMBIN TIME 10.3 SEC (9.6-11.6)
[2022-06-14 04:26] LABS: PARTIAL THROMBOPLASTIN TIME 33.3 SEC (26.3-35.5)
[2022-06-14 04:30] LABS: CREATININE 1.2 mg/dL (0.5-1.5); MAGNESIUM 1.6 mg/dL (1.80-2.40); PHOSPHORUS 3.9 mg/dL (2.5-4.9)
[2022-06-14 05:00] VITALS: BP 158/106
[2022-06-14] MEDS: LACTATED RINGERS 1000ML 1,000 ML IV SCH (05:00)
[2022-06-14] MEDS ORDERED: LORAZEPAM 0.5 MG TABLET PO PRN (05:30)
[2022-06-14] MEDS: LEVOTHYROXINE 25 MCG TABLET PO SCH (06:30)
[2022-06-14] MEDS: INSULIN HUMULIN R 100 UNIT/ML 3ML SQ SCH ×4 (06:52→20:56)
[2022-06-14] MEDS: HYDROMORPHONE 1 MG INJ IVP PRN ×3 (07:52→21:45)
[2022-06-14] MEDS: PANTOPRAZOLE 40 MG/VIAL IVP SCH ×2 (07:52→19:37)
[2022-06-14] MEDS: FUROSEMIDE 20 MG TABLET PO SCH (07:52)
[2022-06-14] MEDS: GABAPENTIN 300 MG CAPSULE PO SCH ×3 (07:52→19:37)
[2022-06-14 08:24] VITALS: BP 184/93
[2022-06-14 11:05] VITALS: BP 187/99
[2022-06-14 15:56] VITALS: BP 157/90
[2022-06-14] MEDS: ATORVASTATIN 40 MG TABLET PO SCH (19:37)
[2022-06-14 20:56] VITALS: BP 136/94
[2022-06-15] VITALS (26 sets, daily range): BP systolic 126–186; BP diastolic 74–115
[2022-06-15] MEDS: HYDROMORPHONE 1 MG INJ IVP PRN ×3 (03:27→19:26)
[2022-06-15] MEDS: LEVOTHYROXINE 25 MCG TABLET PO SCH (04:25)
[2022-06-15 05:07] LABS: MEAN CORPUSCULAR HEMOGLOBIN 34.1 pg (27.0-33.0); MEAN CORPUSCULAR HGB CONC 32.3 g/dL (32.0-36.0); MEAN CORPUSCULAR VOLUME 105.8 fL (79-99); PLATELET COUNT (AUTO) 542 K/uL (130-400); RED BLOOD CELL COUNT(AUTO) 2.93 MIL/uL (4.50-6.20); RED CELL DISTRIBUTION WIDTH 14.3 % (11.0-15.5)
[2022-06-15 05:23] LABS: ALBUMIN 2.2 g/dL (3.5-5.0); CREATININE 1.2 mg/dL (0.5-1.5); MAGNESIUM 1.5 mg/dL (1.80-2.40); POTASSIUM 4.2 mmol/L (3.5-5.1); TOTAL PROTEIN, SERUM 5.7 g/dL (6.0-8.3)
[2022-06-15] MEDS: INSULIN HUMULIN R 100 UNIT/ML 3ML SQ SCH ×4 (05:56→20:01)
[2022-06-15] MEDS: PANTOPRAZOLE 40 MG/VIAL IVP SCH ×2 (07:50→19:21)
[2022-06-15] MEDS: FUROSEMIDE 20 MG TABLET PO SCH (09:00)
[2022-06-15] MEDS: GABAPENTIN 300 MG CAPSULE PO SCH ×3 (09:00→19:21)
[2022-06-15] MEDS: MAGNESIUM 2GM PREMIX 50ML 50 ML IV SCH (10:24)
[2022-06-15] MEDS ORDERED: LACTATED RINGERS 1000ML 1,000 ML IV ONE (11:04)
[2022-06-15] MEDS ORDERED: CEFAZOLIN SODIUM 1 GM VIAL ONE (11:39)
[2022-06-15] MEDS ORDERED: ROPIVACAINE 0.5% 5MG/ML 30ML IJ ONE (12:23)
[2022-06-15] MEDS ORDERED: PROPOFOL 10 MG/ML 20ML VIAL IV ONE (12:24)
[2022-06-15] MEDS ORDERED: FENTANYL CITRATE PF 50 MCG/1 ML 2ML VIAL ONE ×2 (12:24→13:49)
[2022-06-15] MEDS ORDERED: ONDANSETRON 4MG INJ ONE (12:24)
[2022-06-15] MEDS ORDERED: ROCURONIUM 10MG/1ML SYR 10 MG/ML ML ONE (12:24)
[2022-06-15] MEDS ORDERED: MIDAZOLAM HCL 1 MG/ML 2ML VIAL ONE (12:24)
[2022-06-15] MEDS ORDERED: DEXAMETHASONE SOD PHOSPHATE 10MG/ML 1ML VIAL ONE (12:39)
[2022-06-15] MEDS ORDERED: NEOSTIGMINE 5MG/5ML SYR IV ONE (13:41)
[2022-06-15] MEDS ORDERED: GLYCOPYRROLATE 1 MG/5 ML SYRINGE ONE (13:41)
[2022-06-15] MEDS ORDERED: LABETALOL 20MG VIAL IV ONE (14:11)
[2022-06-15] MEDS ORDERED: MORPHINE 2 MG SYG ONE (14:14)
[2022-06-15] MEDS ORDERED: HYDRALAZINE 20MG/ML VIAL ONE (14:30)
[2022-06-15] MEDS: MORPHINE 2 MG SYG IVP PRN (16:14)
[2022-06-15] MEDS: NICOTINE 14 MG/ 24 HR PATCH TD SCH (17:04)
[2022-06-15] MEDS: HYDROCODONE/ACETAMINOPHEN 5/325 MG TAB PO PRN (17:08)
[2022-06-15] MEDS: ATORVASTATIN 40 MG TABLET PO SCH (19:21)
[2022-06-15] MEDS: METOPROLOL TARTRATE 50 MG TAB PO SCH (20:45)
[2022-06-16] MEDS: LEVOTHYROXINE 25 MCG TABLET PO SCH (04:10)
[2022-06-16] MEDS: HYDROMORPHONE 1 MG INJ IVP PRN ×2 (04:11→23:42)
[2022-06-16 04:39] LABS: HEMATOCRIT 29.7 % (42-54); MEAN CORPUSCULAR HEMOGLOBIN 34.1 pg (27.0-33.0); MEAN CORPUSCULAR HGB CONC 33.7 g/dL (32.0-36.0); MEAN CORPUSCULAR VOLUME 101.4 fL (79-99); RED BLOOD CELL COUNT(AUTO) 2.93 MIL/uL (4.50-6.20); RED CELL DISTRIBUTION WIDTH 14.4 % (11.0-15.5); WHITE BLOOD COUNT (AUTO) 12.5 K/uL (4.8-10.8)
[2022-06-16 05:02] LABS: ALBUMIN 2.3 g/dL (3.5-5.0); MAGNESIUM 1.5 mg/dL (1.80-2.40); POTASSIUM 4.2 mmol/L (3.5-5.1)
[2022-06-16] MEDS: INSULIN HUMULIN R 100 UNIT/ML 3ML SQ SCH ×3 (05:28→20:32)
[2022-06-16 06:15] VITALS: BP 141/85
[2022-06-16 08:00] VITALS: BP 154/84
[2022-06-16] MEDS: NICOTINE 14 MG/ 24 HR PATCH TD SCH (08:37)
[2022-06-16] MEDS: GABAPENTIN 300 MG CAPSULE PO SCH ×3 (08:38→20:32)
[2022-06-16] MEDS: METOPROLOL TARTRATE 50 MG TAB PO SCH ×2 (08:38→20:32)
[2022-06-16] MEDS: FUROSEMIDE 20 MG TABLET PO SCH (08:38)
[2022-06-16] MEDS: PANTOPRAZOLE 40 MG/VIAL IVP SCH ×2 (08:38→20:32)
[2022-06-16] MEDS: HYDROCODONE/ACETAMINOPHEN 5/325 MG TAB PO PRN ×2 (08:40→12:04)
[2022-06-16 12:00] VITALS: BP 140/78
[2022-06-16] MEDS: IPRATROPIUM 0.5 MG/2.5 ML INH IH SCH ×3 (12:11→23:15)
[2022-06-16 16:00] VITALS: BP 127/72
[2022-06-16 20:06] VITALS: BP 157/79
[2022-06-16] MEDS: MORPHINE 2 MG SYG IVP PRN (20:32)
[2022-06-16] MEDS: ATORVASTATIN 40 MG TABLET PO SCH (20:32)
[2022-06-17] VITALS: BP 188/99
[2022-06-17] MEDS: MAGNESIUM 2GM PREMIX 50ML 50 ML IV SCH ×2 (00:33→05:55)
[2022-06-17 04:11] VITALS: BP 150/90
[2022-06-17 04:34] LABS: HEMATOCRIT 28.9 % (42-54); MEAN CORPUSCULAR HEMOGLOBIN 34.4 pg (27.0-33.0); MEAN CORPUSCULAR HGB CONC 33.6 g/dL (32.0-36.0); MEAN CORPUSCULAR VOLUME 102.5 fL (79-99); RED BLOOD CELL COUNT(AUTO) 2.82 MIL/uL (4.50-6.20); RED CELL DISTRIBUTION WIDTH 14.3 % (11.0-15.5); WHITE BLOOD COUNT (AUTO) 7.2 K/uL (4.8-10.8)
[2022-06-17 04:56] LABS: ALBUMIN 2.2 g/dL (3.5-5.0); CREATININE 0.9 mg/dL (0.5-1.5); MAGNESIUM 1.7 mg/dL (1.80-2.40); POTASSIUM 3.6 mmol/L (3.5-5.1); TOTAL PROTEIN, SERUM 5.7 g/dL (6.0-8.3)
[2022-06-17] MEDS: HYDROMORPHONE 1 MG INJ IVP PRN (05:45)
[2022-06-17] MEDS: KCL 20 MEQ ERTAB PO PRN ×2 (05:55→08:10)
[2022-06-17] MEDS: INSULIN HUMULIN R 100 UNIT/ML 3ML SQ SCH ×2 (06:00→11:30)
[2022-06-17] MEDS: IPRATROPIUM 0.5 MG/2.5 ML INH IH SCH ×2 (06:26→11:01)
[2022-06-17] MEDS: LEVOTHYROXINE 25 MCG TABLET PO SCH (06:37)
[2022-06-17 07:40] VITALS: BP 184/98
[2022-06-17] MEDS: GABAPENTIN 300 MG CAPSULE PO SCH (08:08)
[2022-06-17] MEDS: PANTOPRAZOLE 40 MG/VIAL IVP SCH (08:08)
[2022-06-17] MEDS: FUROSEMIDE 20 MG TABLET PO SCH (08:08)
[2022-06-17] MEDS: METOPROLOL TARTRATE 50 MG TAB PO SCH (08:08)
[2022-06-17] MEDS: MORPHINE 2 MG SYG IVP PRN (08:12)
[2022-06-17 11:35] VITALS: BP 156/78
== END 2022-06-17 16:30 | disposition home or self-care (01) | DRG 239 ==
LOC: EDH 16:04 → EDHIP 18:27 → OBSVTOIN 18:27 → EDHIP 19:05 → 4BH 06-14 05:23
PROVIDERS: ADMIT Internal Medicine Critical Care Medicine; ATTEND Internal Medicine Critical Care Medicine
PROC: 0Y6C0Z3 Detachment at Right Upper Leg, Low, Open Approach (ICD-10-PCS; principal; 2022-06-15 12:26)
DX: I73.89 Other specified peripheral vascular diseases (principal); J96.20 Acute and chronic respiratory failure, unspecified whether with hypoxia or hypercapnia; Z20.822 Contact with and (suspected) exposure to COVID-19; D64.9 Anemia, unspecified; E03.9 Hypothyroidism, unspecified; E78.5 Hyperlipidemia, unspecified; I48.0 Paroxysmal atrial fibrillation; J44.9 Chronic obstructive pulmonary disease, unspecified; D69.6 Thrombocytopenia, unspecified; I12.9 Hypertensive chronic kidney disease with stage 1 through stage 4 chronic kidney disease, or unspecified chronic kidney disease; N18.2 Chronic kidney disease, stage 2 (mild); K44.9 Diaphragmatic hernia without obstruction or gangrene; E87.70 Fluid overload, unspecified; F12.10 Cannabis abuse, uncomplicated; F17.210 Nicotine dependence, cigarettes, uncomplicated; Z89.612 Acquired absence of left leg above knee; Z91.19 Patient's noncompliance with other medical treatment and regimen; Z89.611 Acquired absence of right leg above knee; Z89.512 Acquired absence of left leg below knee; Z89.511 Acquired absence of right leg below knee; Z79.01 Long term (current) use of anticoagulants
CPT/HCPCS: 36415; 71045; 71250; 73630; 80048; 80053; 82948; 83605; 83735; 83880; 84100; 84484; 85025; 85027; 85610; 85730; 86140; 86850; 86900; 86901; 87040; 87635; 93005; 93926; 94640; 94664; 97039; C9113; C9803; G0378; J0360; J0690; J1100; J1170; J1885; J2250; J2405; J2704; J2710; J2795; J3010; J3475; J3490; J7120

== ENCOUNTER 2023-01-02 17:11 | Inpatient (IN) | payer MEDICARE ==
[~2023-01-02] VITALS: Ht 172.7 cm; Wt 51.0 kg
[~2023-01-02 17:11] MED LIST changes: -APIX2.5T PO; +APIX5TAB PO; +LEVO-70 PO
[2023-01-02 17:46] LABS: BASOPHILS % (AUTO) 0.2 % (0.0-5.0); HEMATOCRIT 43.6 % (42-54); MEAN CORPUSCULAR HEMOGLOBIN 33.7 pg (27.0-33.0); MEAN CORPUSCULAR HGB CONC 33.7 g/dL (32.0-36.0); MONOCYTES % (AUTO) 6.6 % (3.0-13.0); NEUTROPHILS % (AUTO) 86.4 % (40.0-77.0); PLATELET COUNT (AUTO) 144 K/uL (130-400); RED BLOOD CELL COUNT(AUTO) 4.36 MIL/uL (4.50-6.20); RED CELL DISTRIBUTION WIDTH 15.9 % (11.0-15.5); WHITE BLOOD COUNT (AUTO) 6.4 K/uL (4.8-10.8)
[2023-01-02 17:56] LABS: INR 1.56 (0.85-1.15); PROTHROMBIN TIME 16.6 SEC (9.6-11.6)
[2023-01-02 17:57] LABS: PARTIAL THROMBOPLASTIN TIME 43.8 SEC (26.3-35.5)
[2023-01-02] MEDS ORDERED: FERS325 PO (17:57)
[2023-01-02] MEDS ORDERED: IPRATROPIUM/ALBUTEROL SULFATE 3 ML SOLUTION IH ONE (18:00)
[2023-01-02] MEDS ORDERED: NITROGLYCERIN 0.4 MG SL TAB SL PRN (18:00)
[2023-01-02] MEDS ORDERED: METOPROLOL TARTRATE 1 MG/ML 5ML VIAL IV ONE ×2 (18:00→18:30)
[2023-01-02] MEDS ORDERED: HEPARIN 25,000 UNITS/250ML D5W 250 ML IV SCH (18:00)
[2023-01-02 18:07] LABS: ALBUMIN 2.8 g/dL (3.5-5.0); CREATININE 3.7 mg/dL (0.5-1.5); MAGNESIUM 1.6 mg/dL (1.80-2.40); POTASSIUM 3.5 mmol/L (3.5-5.1)
[2023-01-02 18:13] LABS: B-TYPE NATRIURETIC PEPTIDE 2290 pg/mL (0-100)
[2023-01-02] MEDS ORDERED: ASPIRIN 325MG TAB PO SCH (19:00)
[2023-01-02] MEDS ORDERED: MAGNESIUM 2GM PREMIX 50ML 50 ML IV SCH (19:00)
[2023-01-02 19:05] LABS: APPEARANCE,URINE CLOUDY (CLEAR); BILIRUBIN,URINE 1 mg/dL (NEGATIVE); COLOR,URINE YELLOW (YELLOW); GLUCOSE, URINE (UA) NEGATIVE (NEGATIVE); KETONES,URINE NEGATIVE (NEGATIVE); LEUKOCYTE ESTERASE ,URINE NEGATIVE Leu/uL (NEGATIVE); NITRATE,URINE NEGATIVE (NEGATIVE); OCCULT BLOOD,URINE NEGATIVE (NEGATIVE); PROTEIN,URINE 70 mg/dL (NEGATIVE)
[2023-01-02 19:09] LABS: BACTERIA,URINE RARE /HPF (None Seen); MUCUS,URINE RARE LPF (None Seen); OTHER CASTS, URINE 1 /LPF (None Seen); SQUAMOUS EPITHELIAL CELL,UR RARE /HPF (0-2)
[2023-01-02] MEDS ORDERED: ZOSYN 3.375GM +NS 50ML IVPB SCH (19:38)
[2023-01-02] MEDS ORDERED: ATORVASTATIN 40 MG TABLET PO SCH (21:00)
[2023-01-02] MEDS ORDERED: ONDANSETRON 4MG INJ IVP PRN (21:30)
[2023-01-02] MEDS: METOPROLOL TARTRATE 50 MG TAB PO SCH (21:46)
[2023-01-02] MEDS: 0.9%NACL 1000ML 1,000 ML IV SCH (21:47)
[2023-01-02 22:15] LABS: AMMONIA < 10 umol/L (11-32); CREATINE KINASE, TOTAL 73 U/L (21-232); MYOGLOBIN 386 ng/mL (10-92)
[2023-01-02] MEDS: IPRATROPIUM 0.5 MG/2.5 ML INH IH SCH (23:00)
[2023-01-03] VITALS (28 sets, daily range): BP systolic 84–165; BP diastolic 39–110
[2023-01-03] MEDS: IPRATROPIUM 0.5 MG/2.5 ML INH IH SCH ×3 (06:08→19:24)
[2023-01-03 06:21] LABS: HEMATOCRIT 41.5 % (42-54); MEAN CORPUSCULAR HEMOGLOBIN 34.3 pg (27.0-33.0); MEAN CORPUSCULAR HGB CONC 34.2 g/dL (32.0-36.0); MEAN CORPUSCULAR VOLUME 100.2 fL (79-99); NUCLEATED RED BLOOD CELLS 0.4 % (0.0-0.19); RED BLOOD CELL COUNT(AUTO) 4.14 MIL/uL (4.50-6.20); RED CELL DISTRIBUTION WIDTH 15.9 % (11.0-15.5)
[2023-01-03] MEDS ORDERED: LEVOTHYROXINE 25 MCG TABLET PO SCH (06:30)
[2023-01-03 06:48] LABS: MAGNESIUM 1.7 mg/dL (1.80-2.40); PHOSPHORUS 7.3 mg/dL (2.5-4.9); POTASSIUM 3.7 mmol/L (3.5-5.1); THYROID STIMULATING HORMONE 7.51 uIU/mL (0.36-3.74)
[2023-01-03] MEDS: INSULIN HUMULIN R 100 UNIT/ML 3ML SQ SCH ×3 (07:30→16:26)
[2023-01-03] MEDS: 0.9%NACL 1000ML 1,000 ML IV SCH ×2 (07:49→16:32)
[2023-01-03] MEDS ORDERED: CEFEPIME HCL 1 GM VIAL IVP SCH (09:00)
[2023-01-03] MEDS ORDERED: AZITHROMYCIN 500MG+NS 250ML IV SCH (09:00)
[2023-01-03] MEDS ORDERED: FUROSEMIDE 40MG VIAL IV SCH (09:00)
[2023-01-03] MEDS ORDERED: ASPIRIN 81MG CHEW TAB PO SCH (09:00)
[2023-01-03] MEDS ORDERED: TRAMADOL HCL 50 MG TABLET PO SCH (09:00)
[2023-01-03] MEDS ORDERED: CEFTRIAXONE 2GM VIAL IVP SCH (09:00)
[2023-01-03] MEDS ORDERED: FUROSEMIDE 20 MG TABLET PO SCH (09:00)
[2023-01-03] MEDS: METOPROLOL TARTRATE 50 MG TAB PO SCH (09:13)
[2023-01-03 11:32] LABS: CREATININE,URINE RANDOM 316 mg/dL (30-135); SODIUM,URINE RANDOM < 14 mmol/l (40-220)
[2023-01-03 11:44] LABS: ABG BASE EXCESS -3.4 mmol/L (-2.0-3.0); ABG HCO3 19.7 mmol/L (21.0-28.0); ABG OXYGEN SATURATION 98.4 % (95.0-99.0); ABG PCO2 30 mmHg (35-48)
[2023-01-03] MEDS: BALSAM PERU/CASTOR OIL 60 GM TUBE TP SCH ×2 (15:49→20:47)
[2023-01-03] MEDS ORDERED: DEXTROSE 50%-WATER 50 ML DISP.SYRIN IV PRN (16:30)
[2023-01-03] MEDS ORDERED: GLUCAGON 1MG KIT 1 MG ML IM PRN (16:30)
[2023-01-03] MEDS ORDERED: 0.9%NACL 1000ML 1,000 ML IV SCH (19:00)
[2023-01-03] MEDS ORDERED: LORAZEPAM 2 MG/ML 1 ML VIAL IM PRN (20:00)
[2023-01-03] MEDS ORDERED: MORPHINE 2 MG SYG IVP PRN ×2 (20:00→21:00)
[2023-01-03] MEDS ORDERED: LORAZEPAM 2 MG/ML 1 ML VIAL IVP PRN (20:00)
[2023-01-03] MEDS ORDERED: HALOPERIDOL INJ 5 MG/ML VIAL IV PRN (20:00)
[2023-01-03] MEDS ORDERED: MORPHINE 2 MG SYG IVP ONE (20:00)
[2023-01-03 20:57] LABS: INR 2.6 (0.85-1.15); PROTHROMBIN TIME 26.8 SEC (9.6-11.6)
[2023-01-03] MEDS ORDERED: SIMVASTATIN 20 MG TABLET PO SCH (21:00)
[2023-01-04 01:31] VITALS: BP 76/34
== END 2023-01-04 11:52 | DRG 871 ==
LOC: EDH 17:11 → EDHIP 21:14 → 2CH 01-03 06:41 → 4DH 01-04 03:45
PROVIDERS: ADMIT Internal Medicine; ATTEND Internal Medicine
DX: A41.9 Sepsis, unspecified organism (principal); G93.41 Metabolic encephalopathy; I21.A1 Myocardial infarction type 2; J69.0 Pneumonitis due to inhalation of food and vomit; L89.153 Pressure ulcer of sacral region, stage 3; J44.0 Chronic obstructive pulmonary disease with (acute) lower respiratory infection; N17.9 Acute kidney failure, unspecified; E87.20 Acidosis, unspecified; Z20.822 Contact with and (suspected) exposure to COVID-19; R65.20 Severe sepsis without septic shock; D64.9 Anemia, unspecified; E03.9 Hypothyroidism, unspecified; E78.00 Pure hypercholesterolemia, unspecified; E83.42 Hypomagnesemia; E86.0 Dehydration; G89.29 Other chronic pain; I12.9 Hypertensive chronic kidney disease with stage 1 through stage 4 chronic kidney disease, or unspecified chronic kidney disease; I25.10 Atherosclerotic heart disease of native coronary artery without angina pectoris; I48.91 Unspecified atrial fibrillation; I73.9 Peripheral vascular disease, unspecified; N18.9 Chronic kidney disease, unspecified; R62.7 Adult failure to thrive; Z66 Do not resuscitate; Z86.711 Personal history of pulmonary embolism; Z86.718 Personal history of other venous thrombosis and embolism; Z91.199 Patient's noncompliance with other medical treatment and regimen due to unspecified reason; Z79.01 Long term (current) use of anticoagulants; Z89.512 Acquired absence of left leg below knee; Z89.611 Acquired absence of right leg above knee; Z89.612 Acquired absence of left leg above knee; Z95.5 Presence of coronary angioplasty implant and graft
CPT/HCPCS: 36415; 36600; 70450; 71045; 80048; 80053; 81001; 82140; 82150; 82550; 82570; 82803; 82948; 83605; 83615; 83735; 83874; 83880; 84100; 84145; 84300; 84443; 84484; 85025; 85027; 85610; 85730; 87040; 87635; 92610; 93005; 93306; 94640; 94664; C9803; G0378; J0456; J0692; J1644; J1940; J2060; J2543; J3490